=== PATIENT | male | born 2000 | race African-American/Black ===

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

== ENCOUNTER 2019-01-02 00:38 | Inpatient (IN) | payer OTHER ==
[2019-01-02] MEDS ORDERED: NA CHLORIDE 0.9% 1,000 ML ONE ×3 (01:07→02:11)
[2019-01-02] MEDS ORDERED: ONDANSETRON 4 MG/2 ML VIAL ONE (01:07)
[2019-01-02 01:25] LABS: Absolute Monocytes 0.5 K/uL (0.1-1.3); Absolute Neutrophil 7.7 K/uL (1.8-8.0); Basophils % 0.3 % (0-1.3); Eosinophils % 0.2 % (0-4.4); Hematocrit 51.5 % (39.6-49.0); Lymphocytes % 19.4 % (15.3-44.8); MPV 7.8 fL (7.6-11.3); Monocytes % 4.9 % (3.3-12.3); RBC Red Blood Cell Count 6.04 M/uL (4.33-5.43)
[2019-01-02 01:38] LABS: BUN Blood Urea Nitrogen 20 mg/dL (7-18); Glucose Level 347 mg/dL (74-106); Potassium 4.9 mmol/L (3.5-5.1); Sodium Level 134 mmol/L (136-145)
[2019-01-02 01:44] LABS: Bicarbonate 8 mmol/L (21-32)
--- NOTE | 2019-01-02 01:49 | EDPHYS ---
Physician Documentation [facility] Name: David Merritt Age: 18 yrs Sex: Male : 2000 Arrival Date: 01/02/2019 Time: 00:40 Bed 4 Private MD: ED Physician Wilman Rizvi HPI: 01/02 00:47 This 18 yrs old Black Male presents to ER via Unassigned with complaints of DKA. kb Historical: - Allergies: 00:52 NKA; lp1 - Home Meds: 00:52 Tresiba FlexTouch U-100 subcutaneous 30 unit daily for Type 1 Diabetes Mellitus lp1 [Active]; Novolin R Sub-Q [Active]; Adderall XR Oral [Active]; Wellbutrin Oral [Active]; Abilify oral oral [Active]; Depakote Oral [Active]; - PMHx: 00:52 ADD/ADHD; Anxiety; Depression; Diabetes - IDDM; kidney disease; lp1 - PSHx: 00:52 None; lp1 - Immunization history:: Adult Immunizations up to date. - Social history:: Smoking status: Patient uses tobacco products, denies chronic smoking, but will smoke occasionally. - Ebola Screening: : No symptoms or risks identified at this time. ROS: 00:48 ENT: Negative for injury, pain, and discharge, Neck: Negative for injury, pain, and kb swelling, Cardiovascular: Negative for chest pain, palpitations, and edema, Respiratory: Negative for shortness of breath, cough, wheezing, and pleuritic chest pain, Back: Negative for injury and pain, MS/Extremity: Negative for injury and deformity, Skin: Negative for injury, rash, and discoloration, Neuro: Negative for headache, weakness, numbness, tingling, and seizure. 00:48 Constitutional: Positive for fatigue, Negative for body aches, chills, fever, malaise, poor PO intake, weight loss. 00:48 Abdomen/GI: Positive for abdominal pain, nausea and vomiting, Negative for diarrhea, constipation, abdominal cramps, abdominal distension, anorexia. Exam: 00:47 Constitutional: This is a well developed, well nourished patient who is awake, alert, kb and in no acute distress. Head/Face: Normocephalic, atraumatic. ENT: Nares patent. No nasal discharge, no septal abnormalities noted. Tympanic membranes are normal and external auditory canals are clear. Oropharynx with no redness, swelling, or masses, exudates, or evidence of obstruction, uvula midline. Mucous membranes moist. Neck: Trachea midline, no thyromegaly or masses palpated, and no cervical lymphadenopathy. Supple, full range of motion without nuchal rigidity, or vertebral point tenderness. No Meningismus. Chest/axilla: Normal chest wall appearance and motion. Nontender with no deformity. No lesions are appreciated. Cardiovascular: Regular rate and rhythm with a normal S1 and S2. No gallops, murmurs, or rubs. Normal PMI, no JVD. No pulse deficits. Respiratory: Lungs have equal breath sounds bilaterally, clear to auscultation and percussion. No rales, rhonchi or wheezes noted. No increased work of breathing, no retractions or nasal flaring. Back: No spinal tenderness. No costovertebral tenderness. Full range of motion. Skin: Warm, dry with normal turgor. Normal color with no rashes, no lesions, and no evidence of cellulitis. MS/ Extremity: Pulses equal, no cyanosis. Neurovascular intact. Full, normal range of motion. Neuro: Awake and alert, GCS 15, oriented to person, place, time, and situation. Cranial nerves II-XII grossly intact. Motor strength 5/5 in all extremities. Sensory grossly intact. Cerebellar exam normal. Normal gait. 00:47 Abdomen/GI: Inspection: abdomen appears normal, Bowel sounds: normal, in all quadrants, Palpation: soft, in all quadrants, mild abdominal tenderness, in all quadrants. 01:07 ECG was reviewed by the Attending Physician. kb Vital Signs: 00:45 BP 141 / 84; Pulse 101; Resp 16; Temp 97.8(O); Pulse Ox 99% on R/A; Weight 61.23 kg; lp1 Height 5 ft. 0 in. (152.40 cm); Pain 0/10; 01:30 BP 116 / 68; Pulse 96; Resp 16; Pulse Ox 99% on R/A; rr5 02:30 BP 123 / 76; Pulse 94; Resp 15; Pulse Ox 99% on R/A; rr5 03:00 BP 104 / 59; Pulse 86; Resp 17; Temp 97.9; Pulse Ox 99% on R/A; rr5 00:45 Body Mass Index 26.37 (61.23 kg, 152.40 cm) lp1 MDM: 00:42 Patient medically screened. kb 00:47 Data reviewed: vital signs, nurses notes. Data interpreted: Pulse oximetry: on room air kb is 98 %. Interpretation: normal. 01:44 Counseling: I had a detailed discussion with the patient and/or guardian regarding: the kb historical points, exam findings, and any diagnostic results supporting the discharge/admit diagnosis, lab results, radiology results, the need for further work-up and treatment in the hospital. 01:46 Physician consultation: Madai Gilmore MD was contacted at 01:47, regarding admission, kb to the ICU, patient's condition, and will see patient in ED, shortly. 01/02 00:47 Order name: CBC with Diff kb 01/02 00:47 Order name: Basic Metabolic Panel kb 01/02 00:47 Order name: Acetone, Serum kb 01/02 00:49 Order name: CBC with Automated Diff; Complete Time: 01:33 EDMS 01/02 00:49 Order name: Basic Metabolic Panel; Complete Time: 01:44 EDMS 01/02 00:49 Order name: Acetone Level; Complete Time: 01:44 EDMS 01/02 00:54 Order name: ABG kb 01/02 02:31 Order name: Acetone Level EDMS / 02:31 Order name: Acetone Level EDMS / 02:31 Order name: Acetone Level EDMS / 02:31 Order name: Acetone Level EDMS / 02:31 Order name: Basic Metabolic Panel EDMS 01/02 02:31 Order name: Basic Metabolic Panel EDMS / 02:31 Order name: Basic Metabolic Panel EDMS / 02:31 Order name: Basic Metabolic Panel EDMS / 02:31 Order name: Calcium Level EDMS / 02:31 Order name: Calcium Level EDMS / 02:31 Order name: Calcium Level EDMS / 02:31 Order name: Calcium Level EDMS / 02:31 Order name: CBC with Automated Diff EDMS / 02:31 Order name: CBC with Automated Diff EDMS / 02:31 Order name: CBC with Automated Diff EDMS / 02:31 Order name: CBC with Automated Diff EDMS 01/02 02:31 Order name: Lipid Profile EDMS 01/02 02:31 Order name: Lipid Profile EDMS 01/02 02:31 Order name: Magnesium EDMS 01/02 02:31 Order name: Magnesium EDMS 01/02 02:31 Order name: Magnesium EDMS 01/02 02:31 Order name: Magnesium EDMS 01/02 02:31 Order name: Phosphorus EDMS 01/02 00:47 Order name: IV Start; Complete Time: 00:57 kb 01/02 00:47 Order name: Urine Dipstick-Ancillary (obtain specimen); Complete Time: 02:14 kb 01/02 00:47 Order name: Blood Glucose Level; Complete Time: 00:57 kb 01/02 00:47 Order name: EKG; Complete Time: 00:49 kb 01/02 00:47 Order name: EKG - Nurse/Tech; Complete Time: 00:56 kb 01/02 02:30 Order name: CONS Diabetic Education Consul EDMS 01/02 02:30 Order name: CONS Pharmacy Consult EDMS 01/02 02:31 Order name: Phosphorus EDMS 01/02 02:31 Order name: Phosphorus EDMS 01/02 02:31 Order name: Phosphorus EDMS 01/02 02:45 Order name: Urine Dipstick--Ancillary (enter results) ag4 01/02 02:51 Order name: Urine Dipstick-Ancillary EDMS EC:07 Rate is 97 beats/min. Rhythm is regular, Normal Sinus Rhythm. QRS [place] is Normal. UT kb interval is normal at 116 msec. QRS interval is normal at 96 msec. QT interval is normal at 364 msec. Interpreted by me. Reviewed by me. Administered Medications: 01:00 Drug: NS 0.9% 1000 ml Route: IV; Rate: 1000 ml; Site: right antecubital; ea 02:00 Follow up: IV Status: Completed infusion rr5 01:00 Drug: Zofran 4 mg Route: IVP; Site: right antecubital; ea 02:00 Follow up: Response: No adverse reaction rr5 01:21 Drug: NS 0.9% 1000 ml Route: IV; Rate: 1000 ml; Site: right forearm; rr5 02:20 Follow up: Response: No adverse reaction; IV Status: Completed infusion; IV Intake: rr5 1000ml 02:00 Drug: NS 0.9% 1000 ml Route: IV; Rate: 250 ml/hr; Site: right forearm; rr5 03:11 Follow up: Response: No adverse reaction; IV Status: Infusion continued upon admission; rr5 IV Intake: 250ml 02:05 Drug: Insulin Drip - (Insulin Regular Human 100 units, NS 0.9% 100 ml) {Co-Signature: rr5 walt (Oxana Banks RN).} Route: IV; Rate: calculated rate; Site: right forearm; 03:12 Follow up: Response: No adverse reaction; IV Status: Infusion continued upon admission; rr5 IV Intake: 6ml Point of Care Testing: Blood Glucose: 00:47 Blood Glucose: 312 mg/dL; lp1 02:58 Blood Glucose: 249 mg/dL; rr5 Ranges: Critical Glucose Levels:Adult <50 mg/dl or >400 mg/dl <40 mg/dl or >180 mg/dl Disposition: 06:00 Co-signature as Attending Physician, Wilman Rizvi MD. Disposition: 01/02/19 01:47 Hospitalization ordered by Madai Gilmore for Inpatient Admission. Preliminary diagnosis is Diabetes mellitus due to underlying condition with ketoacidosis without coma. - Bed requested for Intensive Care Unit. - Status is Inpatient Admission. rr5 - Condition is Stable. - Problem is new. - Symptoms are unchanged. UTI on Admission? No Signatures: Dispatcher [employer] EDMS Martha Mares, PRICING CLERK-C PRICING CLERK-CkAshlie Godinez RN RN lp1 Liyah Le, RN AUDRA Oxana Banks RN RN ea Starr, Gregory, MD MD Jalen Espinoza, RN AUDRA rr5 Oxana Banks RN, ea Corrections: (The following items were deleted from the chart) 02:57 01:47 Hospitalization Ordered by Madai Gilmore MD for Inpatient Admission. Preliminary cg diagnosis is Diabetes mellitus due to underlying condition with ketoacidosis without coma. Bed requested for Intensive Care Unit. Status is Inpatient Admission. Condition is Stable. Problem is new. Symptoms are unchanged. UTI on Admission? No. kb 03:41 02:57 01/02/2019 01:47 Hospitalization Ordered by Madai Gilmore MD for Inpatient rr5 Admission. Preliminary diagnosis is Diabetes mellitus due to underlying condition with ketoacidosis without coma. Bed requested for Intensive Care Unit. Status is Inpatient Admission. Condition is Stable. Problem is new. Symptoms are unchanged. UTI on Admission? No. cg
--- NOTE | 2019-01-02 01:49 | ER ---
Nurse's Notes [facility] Name: David Merritt Age: 18 yrs Sex: Male : 2000 Arrival Date: 01/02/2019 Time: 00:40 Bed 4 Private MD: Diagnosis: Diabetes mellitus due to underlying condition with ketoacidosis without coma Presentation: 01/02 00:49 Presenting complaint: Mother states: Concerned he is in DKA; Complaint of fatigue, lp1 nausea, vomiting x 4 tonight; States he has not checked is glucose for the past 3 weeks. Transition of care: patient was not received from another setting of care. Onset of symptoms was January 02, 2019. Risk Assessment: Do you want to hurt yourself or someone else? Patient reports no desire to harm self or others. Initial Sepsis Screen: Does the patient meet any 2 criteria? No. Patient's initial sepsis screen is negative. Does the patient have a suspected source of infection? No. Patient's initial sepsis screen is negative. Care prior to arrival: None. 00:49 Method Of Arrival: Ambulatory lp1 00:49 Acuity: SHARRI 3 lp1 Historical: - Allergies: 00:52 NKA; lp1 - Home Meds: 00:52 Tresiba FlexTouch U-100 subcutaneous 30 unit daily for Type 1 Diabetes Mellitus lp1 [Active]; Novolin R Sub-Q [Active]; Adderall XR Oral [Active]; Wellbutrin Oral [Active]; Abilify oral oral [Active]; Depakote Oral [Active]; - PMHx: 00:52 ADD/ADHD; Anxiety; Depression; Diabetes - IDDM; kidney disease; lp1 - PSHx: 00:52 None; lp1 - Immunization history:: Adult Immunizations up to date. - Social history:: Smoking status: Patient uses tobacco products, denies chronic smoking, but will smoke occasionally. - Ebola Screening: : No symptoms or risks identified at this time. Screenin:50 Abuse screen: Denies threats or abuse. Denies injuries from another. Nutritional lp1 screening: No deficits noted. Tuberculosis screening: No symptoms or risk factors identified. Fall Risk None identified. Assessment: 01:00 General: Appears uncomfortable, Behavior is calm, cooperative, appropriate for age. ea Neuro: Level of Consciousness is awake, alert, obeys commands, Oriented to person, place, time, situation. Cardiovascular: Patient's skin is warm and dry. Respiratory: Airway is patent Respiratory effort is even, unlabored, Respiratory pattern is regular, symmetrical. GI: Abdomen is non-distended. Derm: Skin is dry, Skin is normal, Skin temperature is warm. 01:00 GI: Reports nausea, vomiting. rr5 01:00 General: Reports fatigue for. Pain: Denies pain. : No signs and/or symptoms were rr5 reported regarding the genitourinary system. EENT: No signs and/or symptoms were reported regarding the EENT system. Musculoskeletal: Capillary refill < 3 seconds, Range of motion: intact in all extremities. 02:00 Reassessment: Patient appears in no apparent distress at this time. asleep on bed. rr5 Patient states feeling better. Patient states symptoms have improved. 02:30 Reassessment: Patient appears in no apparent distress at this time. Patient is alert, rr5 oriented x 3, equal unlabored respirations, skin warm/dry/pink. dr. thompson came and examined the patient, for admission. 03:00 Reassessment: Patient appears in no apparent distress at this time. No changes from rr5 previously documented assessment. 03:30 Reassessment: Patient appears in no apparent distress at this time. Patient is alert, rr5 oriented x 3, equal unlabored respirations, skin warm/dry/pink. for admission in ICU. vitally stable, no complaints made. Patient states feeling better. Patient states symptoms have improved. Vital Signs: 00:45 BP 141 / 84; Pulse 101; Resp 16; Temp 97.8(O); Pulse Ox 99% on R/A; Weight 61.23 kg; lp1 Height 5 ft. 0 in. (152.40 cm); Pain 0/10; 01:30 BP 116 / 68; Pulse 96; Resp 16; Pulse Ox 99% on R/A; rr5 02:30 BP 123 / 76; Pulse 94; Resp 15; Pulse Ox 99% on R/A; rr5 03:00 BP 104 / 59; Pulse 86; Resp 17; Temp 97.9; Pulse Ox 99% on R/A; rr5 00:45 Body Mass Index 26.37 (61.23 kg, 152.40 cm) lp1 ED Course: 00:40 Patient arrived in ED. am2 00:42 Martha Mares FNP-C [facility]. kb 00:42 Wilman Rizvi MD is Attending Physician. kb 00:49 Jalen Espinoza, AUDRA is Primary Nurse. rr5 00:50 Triage completed. lp1 00:50 Arm band placed on right wrist. lp1 00:50 Patient has correct armband on for positive identification. Placed in gown. Bed in low rr5 position. Call light in reach. Side rails up X2. Adult w/ patient. security monitor on. Pulse ox on. NIBP on. 00:55 Initial lab(s) drawn, by me, sent to lab. Inserted saline lock: 20 gauge in right rr5 forearm, using aseptic technique. Blood collected. 01:47 Madai Thompson MD is Hospitalizing Provider. kb 03:10 No provider procedures requiring assistance completed. Patient admitted, IV remains in rr5 place. intact. Administered Medications: 01:00 Drug: NS 0.9% 1000 ml Route: IV; Rate: 1000 ml; Site: right antecubital; ea 02:00 Follow up: IV Status: Completed infusion rr5 01:00 Drug: Zofran 4 mg Route: IVP; Site: right antecubital; ea 02:00 Follow up: Response: No adverse reaction rr5 01:21 Drug: NS 0.9% 1000 ml Route: IV; Rate: 1000 ml; Site: right forearm; rr5 02:20 Follow up: Response: No adverse reaction; IV Status: Completed infusion; IV Intake: rr5 1000ml 02:00 Drug: NS 0.9% 1000 ml Route: IV; Rate: 250 ml/hr; Site: right forearm; rr5 03:11 Follow up: Response: No adverse reaction; IV Status: Infusion continued upon admission; rr5 IV Intake: 250ml 02:05 Drug: Insulin Drip - (Insulin Regular Human 100 units, NS 0.9% 100 ml) {Co-Signature: rr5 ea (Oxana Banks RN).} Route: IV; Rate: calculated rate; Site: right forearm; 03:12 Follow up: Response: No adverse reaction; IV Status: Infusion continued upon admission; rr5 IV Intake: 6ml Point of Care Testing: Blood Glucose: 00:47 Blood Glucose: 312 mg/dL; lp1 02:58 Blood Glucose: 249 mg/dL; rr5 Ranges: Intake: 02:20 IV: 1000ml; Total: 1000ml. rr5 03:11 IV: 250ml; Total: 1250ml. rr5 03:12 IV: 6ml; Total: 1256ml. rr5 Output: 02:10 Urine: 600ml (Voided); Total: 600ml. rr5 Outcome: 01:47 Decision to Hospitalize by Provider. silvestre 03:30 Admitted to ICU accompanied by nurse, accompanied by tech, via stretcher, room 8, on rr5 monitor, with chart, Other insulin infusion. Report called to randy 03:30 Condition: stable 03:30 Instructed on the need for admit. 03:41 Patient left the ED. rr5 Signatures: Martha Mares, FOOD STYLIST-C FOOD STYLIST-Ashlie Wong, RN RN lp1 Ibeth Live am2 Oxana Banks RN RN ea Roque, Raymond, RN RN rr5 Oxana Banks RN, ea
[2019-01-02] MEDS ORDERED: NA CHLORIDE 0.9% 100 ML IV ONE (02:11)
[2019-01-02] MEDS ORDERED: INSULIN -REGULAR HUMAN 50 UNIT/0.5 ML ML ONE (02:11)
[2019-01-02] MEDS ORDERED: ONDANSETRON 4 MG/2 ML VIAL IV PRN (02:25)
[2019-01-02] MEDS ORDERED: INSULIN -REGULAR HUMAN 100 UNIT in NA CHLORIDE 0.9% 100 ML IV SCH (02:30)
[2019-01-02 02:50] LABS: Urine Blood TRACE (NEG); Urine Glucose 2+ (NEG); Urine Protein 2+ (NEG); Urine Specific Gravity >1.030 (1.005-1.030); Urine pH 5.5 (5.0-7.0)
[2019-01-02] MEDS: D5 0.45 NS 1,000 ML IV SCH ×4 (04:01→16:20)
[2019-01-02 04:18] LABS: Arterial Blood Carboxyhemoglob 1.1 % (0-1.5); Blood Gas Oxyhemoglobin 94.9 % (94-97); Blood O2 Saturation 97.1 % (92-98.5)
[2019-01-02 04:31] VITALS: O2SAT 100
[2019-01-02 05:50] LABS: Magnesium 2.3 mg/dL (1.8-2.4); Phosphorus 2.7 mg/dL (2.5-4.9)
[2019-01-02 05:54] LABS: BUN Blood Urea Nitrogen 17 mg/dL (7-18); Glucose Level 206 mg/dL (74-106); Sodium Level 140 mmol/L (136-145)
[2019-01-02 06:05] LABS: Bicarbonate 11 mmol/L (21-32)
--- NOTE | 2019-01-02 07:54 | P.HP ---
Certification for Inpatient Patient admitted to: Inpatient With expected LOS: >2 Midnights Patient will require the following post-hospital care: None Practitioner: I am a practitioner with admitting privileges, knowledge of patient current condition, hospital course, and medical plan of care. Services: Services provided to patient in accordance with Admission requirements found in Title 42 Section 412.3 of the Code of Federal Regulations Patient History Date of Service: 01/02/19 Reason for admission: DKA History of Present Illness: Pt is a 18-year-old gentleman who came into the hospital in diabetic ketoacidosis. Patient has a history of type 1 diabetes. He has had prior episodes of diabetic ketoacidosis. He forgot to take a few days of his insulin and developed abdominal pain including intractable nausea and vomiting. At that point his mom decided to bring him into the emergency room and he was found to be in DKA. He has been started are aggressive IV hydration and an insulin drip. He will need to be admitted to our hospital into the intensive care unit as we do not have protocol to do insulin drip on the floor. Will need to check his labs quite regularly-every 4 hrs-to make sure patient's blood sugars and acidosis are correcting. He has been instructed to monitor his blood sugars as well as to make certain he is taking insulin on a daily basis. He will need hospitalization it at this time will do inpatient as I am not sure how fast he will correct. However, if he does correct quicker than expected then will discuss with case management regarding changing his status. Allergies No Known Drug Allergies Allergy (Verified 01/02/19 04:53) Unknown Home Medications: ARIPiprazole [Aripiprazole] 5 mg PO BEDTIME 06/07/18 Bupropion *Xl* [Wellbutrin XL*] 300 mg PO DAILY 06/07/18 Divalproex Sodium [Divalproex Sodium ER] 2 tab PO BEDTIME 06/07/18 Insulin Aspart [Novolog Flexpen] See Protocol ACHS 06/07/18 Insulin Degludec [Tresiba Flextouch U-100] 38 units SQ DAILY #1 prasanth 06/08/18 - Past Medical/Surgical History Has patient received pneumonia vaccine in the past: No Diabetic: Yes -: Diabetes type 1 insulin-dependent -: Depression with anxiety -: THC use -: ADD/ADHD -: kidney disease Psychosocial/ Personal History: Patient lives with his mother but at times with his brother. He is single. Has no children. 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 - Social History Smoking Status: Current every day smoker Alcohol use: Yes CD- Drugs: Yes Caffeine use: Yes Place of Residence: Home Review of Systems 10-point ROS is otherwise unremarkable Physical Examination - Vital Signs Temperature: 97.4 F Blood Pressure: 114/71 Pulse: 83 Respirations: 12 Pulse Ox (%): 99 - Physical Exam General: Alert, In no apparent distress, Oriented x3 HEENT: Atraumatic, PERRLA, Mucous membr. moist/pink, EOMI, Sclerae nonicteric Neck: Supple, 2+ carotid pulse no bruit, No LAD, Without JVD or thyroid abnormality Respiratory: Clear to auscultation bilaterally, Normal air movement Cardiovascular: Regular rate/rhythm, Normal S1 S2, No murmurs Gastrointestinal: Normal bowel sounds, Soft and benign, Non-distended, No tenderness Musculoskeletal: No clubbing, No swelling, No tenderness Integumentary: No rashes Neurological: Normal gait, Normal speech, Normal strength at 5/5 x4 extr, Normal tone, Sensation intact, Cranial nerves 3-12 intact, Normal affect Lymphatics: No axilla or inguinal lymphadenopathy - Studies Laboratory Data (last 24 hrs) 01/02/19 02:30: Sodium Cancelled, Potassium Cancelled, BUN Cancelled, Creatinine Cancelled, Glucose Cancelled 01/02/19 00:55: Sodium 134 L, Potassium 4.9, BUN 20 H, Creatinine 1.39 H, Glucose 347 H 01/02/19 00:55: WBC 10.2, Hgb 17.2, Hct 51.5 H, Plt Count 356 Assessment & Plan - Problems (Diagnosis) (1) Diabetic ketoacidosis Current Visit: Yes Status: Acute (2) Diabetes mellitus type I Onset Date: 06/08/18 Current Visit: No Status: Acute (3) Nausea & vomiting Onset Date: 06/08/18 Current Visit: No Status: Acute (4) Tetrahydrocannabinol (THC) use disorder, mild, abuse Onset Date: 06/08/18 Current Visit: No Status: Acute - Plan 1. IV hydration 2. Insulin drip 3. Accu-Cheks q1h 4. Measure anion gap every 2-4 hrs 5. Resume diet(can have ice chips if no N/V) once anion gap is closed and will resume insulin pump 6. Diabetic education 7. Long-acting insulin once patient able to tolerate diet and at that time will discontinue insulin drip Discharge Plan: Home Plan to discharge in: 48 Hours - Advance Directives Does patient have a Living Will: No Does patient have a Durable POA for Healthcare: No - Code Status/Comfort Care Code Status Assessed: Yes Code Status: Full Code Critical Care: No Time Spent Managing PTS Care (In Minutes): 45
[2019-01-02] MEDS: ENOXAPARIN 40 MG/0.4 ML SQ SCH (09:00)
[2019-01-02 09:22] LABS: BUN Blood Urea Nitrogen 14 mg/dL (7-18); Glucose Level 235 mg/dL (74-106); Potassium 4.5 mmol/L (3.5-5.1); Sodium Level 137 mmol/L (136-145)
[2019-01-02 09:33] LABS: Bicarbonate 12 mmol/L (21-32)
--- NOTE | 2019-01-02 11:24 | EKG ---
Test Date: 2019-01-02 Test Time: 01:00:57 Inspector Plumbing: MIMI MEASUREMENT RESULTS: Intervals: Rate: 97 [place]: 116 QRSD: 96 QT: 364 QTc: 462 [place]: P: 80 [place]: 116 QRS: 78 T: 65 INTERPRETIVE STATEMENTS: Normal sinus rhythm Biatrial enlargement Abnormal ECG Compared to ECG 07/28/2017 10:35:56 Sinus tachycardia no longer present Electronically Signed On 01-02-19 11:23:36 CDT by Bobby Dover
[2019-01-02 13:53] LABS: BUN Blood Urea Nitrogen 11 mg/dL (7-18); Bicarbonate 16 mmol/L (21-32); Glucose Level 228 mg/dL (74-106); Potassium 3.9 mmol/L (3.5-5.1); Sodium Level 137 mmol/L (136-145)
[2019-01-02 20:27] LABS: BUN Blood Urea Nitrogen 11 mg/dL (7-18); Bicarbonate 21 mmol/L (21-32); Glucose Level 228 mg/dL (74-106); Potassium 4.2 mmol/L (3.5-5.1); Sodium Level 137 mmol/L (136-145)
[2019-01-02] MEDS: ARIPiprazole 5 MG TAB PO SCH (21:12)
[2019-01-02] MEDS: DIVALPROEX ER 250 MG TAB PO SCH (21:12)
[2019-01-03 00:28] LABS: BUN Blood Urea Nitrogen 12 mg/dL (7-18); Bicarbonate 19 mmol/L (21-32); Glucose Level 234 mg/dL (74-106); Potassium 3.5 mmol/L (3.5-5.1); Sodium Level 139 mmol/L (136-145)
[2019-01-03] MEDS: D5 0.45 NS 1,000 ML IV SCH ×2 (03:21→05:40)
[2019-01-03 05:29] LABS: Absolute Lymphocytes (CBC) 2.3 K/uL (0.7-4.9); Absolute Monocytes 0.5 K/uL (0.1-1.3); Absolute Neutrophil 1.8 K/uL (1.8-8.0); Basophils % 0.6 % (0-1.3); Eosinophils % 3.8 % (0-4.4); Lymphocytes % 47.4 % (15.3-44.8); MPV 7.2 fL (7.6-11.3); Monocytes % 10.7 % (3.3-12.3); RBC Red Blood Cell Count 4.87 M/uL (4.33-5.43)
[2019-01-03 05:46] LABS: BUN Blood Urea Nitrogen 12 mg/dL (7-18); Bicarbonate 21 mmol/L (21-32); Glucose Level 243 mg/dL (74-106); Potassium 3.6 mmol/L (3.5-5.1); Sodium Level 137 mmol/L (136-145)
[2019-01-03 05:47] LABS: Magnesium 1.8 mg/dL (1.8-2.4); Phosphorus 1.5 mg/dL (2.5-4.9)
[2019-01-03] MEDS ORDERED: POTASSIUM PHOS 30 MM in NA CHLORIDE 0.9% 500 ML IV ONE (06:18)
[2019-01-03 06:29] VITALS: BMI 18.7
[2019-01-03] MEDS ORDERED: NA CHLORIDE 0.9% 1,000 ML ONE (06:35)
[2019-01-03] MEDS ORDERED: NA CHLORIDE 0.9% 1,000 ML IV SCH (07:00)
[2019-01-03] MEDS: BUPROPION HCL XL 150 MG TAB PO SCH (09:05)
[2019-01-03] MEDS: INSULIN GLARGINE 100 UNITS/ML SQ SCH (09:12)
[2019-01-03] MEDS: ENOXAPARIN 40 MG/0.4 ML SQ SCH (09:12)
[2019-01-03] MEDS ORDERED: POTASSIUM 25 MEQ EFFERV TAB PO ONE (10:25)
[2019-01-03] MEDS: POTASS/SODIUM PHOSPHATE 1 PKT POWD.PACK PO SCH ×3 (11:24→13:37)
[2019-01-03] MEDS ORDERED: GLUCAGON 1 MG/VIAL IM PRN (11:45)
[2019-01-03] MEDS ORDERED: D50W 25 GM/50 ML SYRINGE IV PRN (11:45)
--- NOTE | 2019-01-03 11:48 | P.PN ---
Subjective Date of Service: 01/03/19 Chief Complaint: DKA Subjective: No C/O voiced, Tolerating diet, Improving, Doing well, Other ( Currently on Insulin ggt gap closed x 1, with small ketones. Denies N/V and SOB) Review of Systems 10-point ROS is otherwise unremarkable Physical Examination - Vital Signs Temperature: 98.6 F Blood Pressure: 98/68 Pulse: 74 Respirations: 12 Pulse Ox (%): 99 - Physical Exam General: Alert, In no apparent distress HEENT: Atraumatic, PERRLA, EOMI Neck: Supple, JVD not distended Respiratory: Clear to auscultation bilaterally, Normal air movement Cardiovascular: Regular rate/rhythm, Normal S1 S2 Gastrointestinal: Normal bowel sounds, No tenderness Musculoskeletal: No tenderness Integumentary: No rashes Neurological: Normal speech, Normal tone, Normal affect Lymphatics: No axilla or inguinal lymphadenopathy - Studies Medications List Reviewed: Yes Assessment And Plan - Current Problems (Diagnosis) (1) Diabetic ketoacidosis Current Visit: Yes Status: Acute Plan: Pt with DKA with initially anion gap > 20 and large Ketones -Pt is currently on Insulin ggt and IV fluids -Anion gap closed x1, Pt able to now tolerate diet. -DC fluids now and Give Long acting insulin. Will switch off insulin ggt in 2 hrs. -ISS - Mod and Accu checks now -Transfer to the floor Qualifiers: Diabetes mellitus type: type 1 Diabetes mellitus complication detail: without coma Qualified Code(s): E10.10 - Type 1 diabetes mellitus with ketoacidosis without coma (2) Diabetes mellitus type I Onset Date: 06/08/18 Current Visit: No Status: Chronic Qualifiers: Diabetes mellitus complication status: with ketoacidosis Diabetes mellitus complication detail: without coma Qualified Code(s): E10.10 - Type 1 diabetes mellitus with ketoacidosis without coma (3) Tetrahydrocannabinol (THC) use disorder, mild, abuse Onset Date: 06/08/18 Current Visit: No Status: Chronic (4) Tobacco abuse Onset Date: 06/08/18 Current Visit: No Status: Chronic - Plan Pending Clinical Improvement. Transfer to the floor. Discharge Plan: Home Plan to discharge in: 48 Hours - Code Status/Comfort Care Code Status Assessed: Yes Critical Care: Yes
[2019-01-03] MEDS: INSULIN -REGULAR HUMAN 50 UNIT/0.5 ML ML SQ SCH ×3 (12:05→21:00)
[2019-01-03 12:25] LABS: BUN Blood Urea Nitrogen 12 mg/dL (7-18); Bicarbonate 24 mmol/L (21-32); Glucose Level 352 mg/dL (74-106); Potassium 4.7 mmol/L (3.5-5.1); Sodium Level 136 mmol/L (136-145)
[2019-01-03] MEDS ORDERED: NA CHLORIDE 0.9% 500 ML IV ONE (12:49)
[2019-01-03] MEDS: ARIPiprazole 5 MG TAB PO SCH (21:38)
[2019-01-03] MEDS: DIVALPROEX ER 250 MG TAB PO SCH (21:38)
[2019-01-04] MEDS ORDERED: PANTOPRAZOLE 40MG TABLET PO ONE (00:12)
[2019-01-04] MEDS ORDERED: MAGNES/ALUMIN/SIMET 30ML UCUP PO ONE (00:16)
[2019-01-04 06:04] LABS: Absolute Lymphocytes (CBC) 2.9 K/uL (0.7-4.9); Absolute Monocytes 0.5 K/uL (0.1-1.3); Basophils % 0.6 % (0-1.3); Eosinophils % 4.9 % (0-4.4); Hematocrit 39.2 % (39.6-49.0); Lymphocytes % 50.8 % (15.3-44.8); MPV 7.1 fL (7.6-11.3); Monocytes % 8.7 % (3.3-12.3); RBC Red Blood Cell Count 4.83 M/uL (4.33-5.43)
[2019-01-04 06:23] LABS: BUN Blood Urea Nitrogen 13 mg/dL (7-18); Bicarbonate 30 mmol/L (21-32); Glucose Level 160 mg/dL (74-106); Magnesium 2.1 mg/dL (1.8-2.4); Phosphorus 3.1 mg/dL (2.5-4.9); Sodium Level 142 mmol/L (136-145)
[2019-01-04 06:29] LABS: Potassium 2.8 mmol/L (3.5-5.1)
[2019-01-04] MEDS: INSULIN -REGULAR HUMAN 50 UNIT/0.5 ML ML SQ SCH ×2 (07:30→11:14)
[2019-01-04] MEDS: KCL 20 MEQ/100 mL IVPB 20 MEQ/100 ML BAG IV SCH ×2 (07:31→10:21)
[2019-01-04] MEDS ORDERED: NA CHLORIDE 0.9% 1,000 ML ONE (07:40)
[2019-01-04] MEDS: ENOXAPARIN 40 MG/0.4 ML SQ SCH (07:45)
[2019-01-04] MEDS: INSULIN GLARGINE 100 UNITS/ML SQ SCH (07:50)
[2019-01-04] MEDS: BUPROPION HCL XL 150 MG TAB PO SCH (07:52)
[2019-01-04 08:18] VITALS: BP 116/62; TEMP 97.9
[2019-01-04] MEDS ORDERED: POTASSIUM CL SA 10 MEQ TAB PO ONE (10:50)
--- NOTE | 2019-01-04 11:32 | P.DS ---
Admission Date: 01/02/19 Discharge Date: 01/04/19 Disposition: ROUTINE DISCHARGE Discharge Condition: GOOD Reason for Admission: DKA Consultations: Not - Problems (1) Diabetic ketoacidosis Current Visit: Yes Status: Acute Qualifiers: Diabetes mellitus type: type 1 Diabetes mellitus complication detail: without coma Qualified Code(s): E10.10 - Type 1 diabetes mellitus with ketoacidosis without coma (2) Diabetes mellitus type I Onset Date: 06/08/18 Current Visit: No Status: Chronic Qualifiers: Diabetes mellitus complication status: with ketoacidosis Diabetes mellitus complication detail: without coma Qualified Code(s): E10.10 - Type 1 diabetes mellitus with ketoacidosis without coma (3) Tetrahydrocannabinol (THC) use disorder, mild, abuse Onset Date: 06/08/18 Current Visit: No Status: Chronic (4) Tobacco abuse Onset Date: 06/08/18 Current Visit: No Status: Chronic Brief History of Present Illness: Pt is a 18-year-old gentleman who came into the hospital in diabetic ketoacidosis. Patient has a history of type 1 diabetes. He has had prior episodes of diabetic ketoacidosis. He forgot to take a few days of his insulin and developed abdominal pain including intractable nausea and vomiting. At that point his mom decided to bring him into the emergency room and he was found to be in DKA. He has been started are aggressive IV hydration and an insulin drip. He will need to be admitted to our hospital into the intensive care unit as we do not have protocol to do insulin drip on the floor. Will need to check his labs quite regularly-every 4 hrs-to make sure patient's blood sugars and acidosis are correcting. He has been instructed to monitor his blood sugars as well as to make certain he is taking insulin on a daily basis. Hospital Course: Overall during stay patient remained stable Patient is initially admitted to the hospital for diabetic ketoacidosis. Was started on insulin drip here in the hospital along with IV fluids. Patient's initial anion gap was over 20 and had large ketones. Patient's DKA was most likely secondary to noncompliance with medication. Patient did markedly well and ICU an anion gap closed times to keep Mr. in the urine. At that time patient was switched over to long-acting insulin and insulin drip was stops 1 hr post administration. Patient had his diet advanced with she tolerated well at that time patient was transferred to the floor. Patient was then monitor for the next 24 hr and did well overall. At that time patient was then discharged home under stable condition was asked to continue his home dose of insulin and to follow up with his primary care provider along with refresh technician. Patient demonstrate understanding and thus was discharged home under stable condition Vital Signs/Physical Exam: Temp Pulse Resp BP Pulse Ox 97.9 F 70 18 116/62 99 01/04/19 08:00 01/04/19 08:00 01/04/19 08:00 01/04/19 08:00 01/04/19 08:00 General: Alert, In no apparent distress HEENT: Atraumatic, PERRLA, EOMI Neck: Supple, JVD not distended Respiratory: Clear to auscultation bilaterally, Normal air movement Cardiovascular: Regular rate/rhythm, Normal S1 S2 Gastrointestinal: Normal bowel sounds, No tenderness Musculoskeletal: No tenderness Integumentary: No rashes Neurological: Normal speech, Normal tone, Normal affect Lymphatics: No axilla or inguinal lymphadenopathy Laboratory Data at Discharge: WBC 5.7 K/uL (4.3-10.9) D 01/04/19 05:19 Hgb 13.5 g/dL (13.6-17.9) L 01/04/19 05:19 Hct 39.2 % (39.6-49.0) L 01/04/19 05:19 Plt Count 264 K/uL (152-406) 01/04/19 05:19 Sodium 142 mmol/L (136-145) 01/04/19 05:19 Potassium 2.8 mmol/L (3.5-5.1) L* 01/04/19 08:07 BUN 13 mg/dL (7-18) 01/04/19 05:19 Creatinine 0.82 mg/dL (0.55-1.3) 01/04/19 05:19 Glucose 160 mg/dL (74-106) H 01/04/19 05:19 Phosphorus 3.1 mg/dL (2.5-4.9) D 01/04/19 05:19 Magnesium 2.1 mg/dL (1.8-2.4) 01/04/19 05:19 Triglycerides 64 mg/dL (<150) 01/03/19 05:11 Cholesterol 126 mg/dL (<200) 01/03/19 05:11 HDL Cholesterol 41 mg/dL (40-60) 01/03/19 05:11 Cholesterol/HDL Ratio 3.07 01/03/19 05:11 Home Medications: ARIPiprazole [Aripiprazole] 10 mg PO BEDTIME 06/07/18 Bupropion *Xl* [Wellbutrin XL*] 300 mg PO DAILY 06/07/18 Divalproex Sodium [Divalproex Sodium ER] 500 mg PO BEDTIME 06/07/18 Insulin Aspart [Novolog Flexpen] See Protocol SQ ACHS 06/07/18 Insulin Degludec [Tresiba Flextouch U-100] 45 units SQ DAILY MDD 45 01/02/19 Diet: Regular Activity: Ad jesus manuel Followup: Gabe Mendoza MD [Primary Care Provider] -
== END 2019-01-04 12:05 | disposition home or self-care (01) | DRG 639 ==
LOC: ER 00:38 → ERHOLD 02:35 → 3RD-ICU 03:14 → 2ND 01-03 16:03
PROVIDERS: ADMIT Hospitalist; ATTEND Hospitalist
DX: E10.10 Type 1 diabetes mellitus with ketoacidosis without coma (principal); F12.10 Cannabis abuse, uncomplicated; F17.210 Nicotine dependence, cigarettes, uncomplicated; Z91.14 Patient's other noncompliance with medication regimen
CPT/HCPCS: 36415; 80048; 80061; 81003; 82010; 82805; 82962; 83735; 84100; 84132; 85025; 93005; 96361; 96365; 96375; 99285; J1650; J2405; J7030

== ENCOUNTER 2019-11-24 14:15 | Inpatient (IN) | payer OTHER, SELFPAY ==
[2019-11-24] MEDS ORDERED: ONDANSETRON 4 MG/2 ML VIAL ONE (14:47)
[2019-11-24] MEDS ORDERED: NA CHLORIDE 0.9% 1,000 ML ONE ×3 (14:47→16:47)
[2019-11-24 14:57] LABS: Absolute Lymphocytes (CBC) 1.9 K/uL (0.7-4.9); Basophils % 0.3 % (0-1.3); Hematocrit 51.7 % (39.6-49.0); Lymphocytes % 11.1 % (15.3-44.8); RBC Red Blood Cell Count 6.28 M/uL (4.33-5.43)
[2019-11-24 15:39] LABS: ALT/SGPT 27 U/L (12-78); Albumin 4.7 g/dL (3.4-5.0); Alkaline Phosphatase 136 U/L (45-117); BUN Blood Urea Nitrogen 19 mg/dL (7-18); Bilirubin Direct < 0.1 mg/dL (0-0.2); Bilirubin Total 0.4 mg/dL (0.2-1.0); Glucose Level 329 mg/dL (74-106); Lipase 47 U/L (73-393); Protein, Total 9.6 g/dL (6.4-8.2); Sodium Level 135 mmol/L (136-145)
[2019-11-24 15:41] LABS: AST/SGOT 15 U/L (15-37); Bicarbonate 9 mmol/L (21-32); Potassium 4.7 mmol/L (3.5-5.1)
--- NOTE | 2019-11-24 15:53 | ER ---
Nurse's Notes [facility] Name: David Merritt Age: 19 yrs Sex: Male : 2000 Arrival Date: 11/24/2019 Time: 14:16 Bed 4 Private MD: Gabe Mendoza W Diagnosis: Diabetes mellitus due to underlying condition with ketoacidosis without coma Presentation: 11/23 14:26 Chief complaint: Patient states: Was in half-way, unable to get insulin as he needed. Out ll1 of insulin at home. Started feeling bad 3 days ago. + N/V. No fever. Coronavirus screen: Proceed with normal triage. Patient denies a cough. Patient denies shortness of breath or difficulty breathing. Patient denies measured and/or subjective temperature greater than 100.4F prior to today's visit. Patient denies travel on a cruise ship or to a country the [facility] currently lists as an affected area. Patient denies contact with known and/or suspected case of COVID-19. Ebola Screen: Patient denies travel to an Ebola-affected area in the 21 days before illness onset. Initial Sepsis Screen: Does the patient meet any 2 criteria? HR > 90 bpm. No. Patient's initial sepsis screen is negative. Does the patient have a suspected source of infection? No. Patient's initial sepsis screen is negative. Risk Assessment: Do you want to hurt yourself or someone else? Patient reports no desire to harm self or others. Onset of symptoms was November 21, 2019. 14:26 Method Of Arrival: Ambulatory ll1 14:26 Acuity: SHARRI 3 ll1 Historical: - Allergies: 14:21 NKA; ph - PMHx: 14:21 ADD/ADHD; Anxiety; Depression; Diabetes - IDDM; kidney disease; ph - PSHx: 14:21 None; ph - Immunization history:: Adult Immunizations unknown. - Social history:: Patient/guardian denies using alcohol, street drugs, Smoking status: Patient reports the use of cigarette tobacco products, smokes one-half pack cigarettes per day. Screenin:21 Abuse screen: Denies threats or abuse. Denies injuries from another. Nutritional ph screening: No deficits noted. Tuberculosis screening: No symptoms or risk factors identified. Fall Risk None identified. Assessment: 14:50 General: Appears in no apparent distress. uncomfortable, slender, well groomed, ph Behavior is calm, cooperative, appropriate for age, Reports fatigue for Denies fever. Pain: Complains of pain in abdomen Quality of pain is described as "uncomfortable in entire abdomen". Neuro: Level of Consciousness is awake, alert, obeys commands, Oriented to person, place, time, situation. Cardiovascular: Capillary refill < 3 seconds in bilateral fingers Patient's skin is warm and dry. Respiratory: Airway is patent Respiratory effort is even, unlabored, Respiratory pattern is regular, symmetrical. GI: Reports lower abdominal pain, upper abdominal pain, nausea, Patient currently denies diarrhea, vomiting. Derm: Skin is intact, is healthy with good turgor, Skin is pink, warm \\T\\ dry. Musculoskeletal: Circulation, motion, and sensation intact. Range of motion: intact in all extremities. 17:04 Reassessment: Patient appears in no apparent distress at this time. Patient and/or ph family updated on plan of care and expected duration. Pain level reassessed. Patient is alert, oriented x 3, equal unlabored respirations, skin warm/dry/pink. Report called to Chad [facility] in ICU, awaiting RT for ABG draw before taking pt to ICU. 17:21 Reassessment: Spoke w/ RT, ABG cancelled by Dr Martin. ph Vital Signs: 14:26 BP 129 / 85; Pulse 115; Resp 20; Temp 98.9; Pulse Ox 98% ; Pain 5/10; ll1 15:30 BP 125 / 74; Pulse 105; Resp 22; Pulse Ox 100% on R/A; ph 16:53 BP 109 / 55; Pulse 108; Resp 24; Temp 98.4; Pulse Ox 100% ; Weight 63.5 kg (R); ph Vitals: 16:53 Cardiac Rhythm Assessment Sinus tach. ph Magdiel Coma Score: 15:30 Eye Response: spontaneous(4). Verbal Response: oriented(5). Motor Response: obeys ph commands(6). Total: 15. ED Course: 14:16 Patient arrived in ED. am2 14:16 Gabe Mendoza MD is Private Physician. am2 14:20 Jessica Cope, AUDRA is Primary Nurse. ph 14:20 [facility]menta [facility]. jr8 14:20 Alfonso Pederson MD is Attending Physician. jr8 14:21 Patient has correct armband on for positive identification. Bed in low position. Call ph light in reach. Side rails up X 1. Pulse ox on. NIBP on. Door closed. Noise minimized. Warm blanket given. 14:28 Triage completed. ll1 14:28 Arm band placed on Patient placed in an exam room, on a stretcher. ll1 14:47 Initial lab(s) drawn, by me, sent to lab. Inserted saline lock: 20 gauge in right ph forearm, using aseptic technique. Blood collected. 15:52 Kevin Martin MD is Hospitalizing Provider. jr8 16:54 No provider procedures requiring assistance completed. Patient admitted, IV remains in ph place. 16:55 First set of blood cultures drawn by ED staff. Inserted saline lock: 22 gauge in right ph antecubital area, using aseptic technique. Administered Medications: 14:49 Drug: NS 0.9% 1000 ml Route: IV; Rate: 1000 ml; Site: left forearm; ph 17:11 Follow up: Response: No adverse reaction; IV Status: Completed infusion; IV Intake: ph 1000ml 14:49 Drug: Zofran (Ondansetron) 4 mg Route: IVP; Site: right forearm; ph 17:09 Follow up: Response: No adverse reaction ph 16:00 Drug: NS 0.9% 1000 ml Route: IV; Rate: 1000 ml; Site: left wrist; em 17:09 Follow up: Response: No adverse reaction; IV Status: Completed infusion; IV Intake: ph 1000ml 16:45 Drug: Insulin Drip - (Insulin Regular Human 100 units, NS 0.9% 100 ml) {Co-Signature: ph em (Adarsh Taylor RN).} {Note: 5 units/hr.} Route: IV; Rate: calculated rate; Site: left forearm; 17:10 Follow up: Response: No adverse reaction; IV Status: Infusion continued upon admission ph Intake: 17:09 IV: 1000ml; Total: 1000ml. ph 17:11 IV: 1000ml; Total: 2000ml. ph Outcome: 15:53 Decision to Hospitalize by Provider. jr8 17:05 Admitted to ICU accompanied by nurse, accompanied by tech, via stretcher, room 2, on ph monitor, with chart, Report called to Chad [facility] 17:05 Condition: stable 17:05 Instructed on the need for admit. 18:05 Patient left the ED. ph Signatures: Adarsh Taylor RN RN em Jitendra Armenta PA PA jr8 Jessica Cope RN RN Ibeth Live Lynsay, RN RN ll1 Adarsh Taylor RN
--- NOTE | 2019-11-24 15:54 | EDPHYS ---
Physician Documentation [facility] Name: David Merritt Age: 19 yrs Sex: Male : 2000 Arrival Date: 11/24/2019 Time: 14:16 Bed 4 Private MD: Gabe Mendoza W ED Physician Alfonso Pederson HPI: 11/23 15:42 This 19 yrs old Black Male presents to ER via Ambulatory with complaints of dka. jr8 15:42 The patient or guardian reports generalized fatigue, hyperglycemia, polyuria, nausea, jr8 shortness of breath. Onset: The symptoms/episode began/occurred acutely, today. Associated signs and symptoms: Pertinent positives: None. Current symptoms: In the emergency department the patient's symptoms are unchanged from the initial presentation. The patient has experienced similar episodes in the past, a few times. The patient has not recently seen a physician. Stated that he ran out of his insulin about 3 days ago. Now not feeling well . Historical: - Allergies: 14:21 NKA; ph - PMHx: 14:21 ADD/ADHD; Anxiety; Depression; Diabetes - IDDM; kidney disease; ph - PSHx: 14:21 None; ph - Immunization history:: Adult Immunizations unknown. - Social history:: Patient/guardian denies using alcohol, street drugs, Smoking status: Patient reports the use of cigarette tobacco products, smokes one-half pack cigarettes per day. ROS: 15:42 Eyes: Negative for injury, pain, redness, and discharge, ENT: Negative for injury, jr8 pain, and discharge, Neck: Negative for injury, pain, and swelling, Cardiovascular: Negative for chest pain, palpitations, and edema, Back: Negative for injury and pain, MS/Extremity: Negative for injury and deformity, Skin: Negative for injury, rash, and discoloration, Neuro: Negative for headache, weakness, numbness, tingling, and seizure. 15:42 Respiratory: Positive for shortness of breath. 15:42 Abdomen/GI: Positive for nausea and vomiting, Negative for abdominal pain, diarrhea, constipation, abdominal cramps, abdominal distension. Exam: 15:51 Eyes: Pupils equal round and reactive to light, extra-ocular motions intact. Lids and jr8 lashes normal. Conjunctiva and sclera are non-icteric and not injected. Cornea within normal limits. Periorbital areas with no swelling, redness, or edema. ENT: Nares patent. No nasal discharge, no septal abnormalities noted. Tympanic membranes are normal and external auditory canals are clear. Oropharynx with no redness, swelling, or masses, exudates, or evidence of obstruction, uvula midline. Mucous membranes moist. Neck: Trachea midline, no thyromegaly or masses palpated, and no cervical lymphadenopathy. Supple, full range of motion without nuchal rigidity, or vertebral point tenderness. No Meningismus. Respiratory: Lungs have equal breath sounds bilaterally, clear to auscultation and percussion. No rales, rhonchi or wheezes noted. No increased work of breathing, no retractions or nasal flaring. Abdomen/GI: Soft, non-tender, with normal bowel sounds. No distension or tympany. No guarding or rebound. No evidence of tenderness throughout. Back: No spinal tenderness. No costovertebral tenderness. Full range of motion. Skin: Warm, dry with normal turgor. Normal color with no rashes, no lesions, and no evidence of cellulitis. MS/ Extremity: Pulses equal, no cyanosis. Neurovascular intact. Full, normal range of motion. Neuro: Awake and alert, GCS 15, oriented to person, place, time, and situation. Cranial nerves II-XII grossly intact. Motor strength 5/5 in all extremities. Sensory grossly intact. Cerebellar exam normal. Normal gait. 15:51 Cardiovascular: Rate: tachycardic, Rhythm: regular, Pulses: Pulses are 2+ in right radial artery and left radial artery. Heart sounds: normal, normal S1and S2, no S3 or S4, no murmur, no rub, no gallop, Edema: is not appreciated, JVD: is not appreciated. Vital Signs: 14:26 BP 129 / 85; Pulse 115; Resp 20; Temp 98.9; Pulse Ox 98% ; Pain 5/10; ll1 15:30 BP 125 / 74; Pulse 105; Resp 22; Pulse Ox 100% on R/A; ph 16:53 BP 109 / 55; Pulse 108; Resp 24; Temp 98.4; Pulse Ox 100% ; Weight 63.5 kg (R); ph Granville Coma Score: 15:30 Eye Response: spontaneous(4). Verbal Response: oriented(5). Motor Response: obeys ph commands(6). Total: 15. MDM: 14:20 Patient medically screened. [facility] 15:51 Data reviewed: vital signs, nurses notes, lab test result(s), and as a result, I will jr admit patient. Data interpreted: Pulse oximetry: on room air is 98 %. Interpretation: normal. Counseling: I had a detailed discussion with the patient and/or guardian regarding: the historical points, exam findings, and any diagnostic results supporting the discharge/admit diagnosis, lab results, the need for further work-up and treatment in the hospital. Physician consultation: Kevin Martin MD was called at 15:52, was contacted at 15:52, regarding admission, to the ICU, patient's condition, and will see patient in ED. 11/23 14:20 Order name: Basic Metabolic Panel; Complete Time: 15:51 [facility] 11/23 14:20 Order name: CBC with Diff; Complete Time: 16:02 [facility] 11/23 14:20 Order name: Creatinine for Radiology; Complete Time: 15:25 [facility] 11/23 14:20 Order name: Hepatic Function; Complete Time: 15:51 [facility] 11/23 14:20 Order name: Lipase; Complete Time: 15:51 [facility] 11/23 14:20 Order name: Ketone, Serum; Complete Time: 15:51 [facility] 11/23 14:50 Order name: Glucose, Ancillary Testing; Complete Time: 15:13 [facility] 11/23 15:57 Order name: CBC Smear Scan; Complete Time: 16:02 [facility] 11/23 16:01 Order name: Basic Metabolic Panel [facility] 11/23 16:01 Order name: Basic Metabolic Panel [facility] 11/23 16:01 Order name: Basic Metabolic Panel [facility] 11/23 16:01 Order name: Basic Metabolic Panel [facility] 11/23 16:04 Order name: Urinalysis [facility] 11/23 14:20 Order name: IV Saline Lock; Complete Time: 14:49 [facility] 11/23 16:01 Order name: CONS Diabetic Education Consul [facility] 11/23 16:01 Order name: CONS Pharmacy Consult [facility] 11/23 16:01 Order name: Clear Liquid [facility] 11/23 16:01 Order name: NPO [facility] 11/23 16:04 Order name: Blood Culture [facility] 11/23 16:05 Order name: Chest Single View [facility] 11/23 16:05 Order name: Chest Single View [facility] 11/23 16:49 Order name: Glucose, Ancillary Testing [facility] 11/23 17:00 Order name: Urine Dipstick--Ancillary (enter results) 11/23 17:23 Order name: Urine Dipstick-Ancillary [facility] 11/23 17:55 Order name: Glucose, Ancillary Testing [facility] 11/23 14:20 Order name: Labs collected and sent; Complete Time: 14:49 jr8 11/23 14:20 Order name: Urine Dipstick-Ancillary (obtain specimen); Complete Time: 16:53 jr8 11/23 14:20 Order name: Glucose Level; Complete Time: 14:49 jr8 Administered Medications: 14:49 Drug: NS 0.9% 1000 ml Route: IV; Rate: 1000 ml; Site: left forearm; ph 17:11 Follow up: Response: No adverse reaction; IV Status: Completed infusion; IV Intake: ph 1000ml 14:49 Drug: Zofran (Ondansetron) 4 mg Route: IVP; Site: right forearm; ph 17:09 Follow up: Response: No adverse reaction ph 16:00 Drug: NS 0.9% 1000 ml Route: IV; Rate: 1000 ml; Site: left wrist; em 17:09 Follow up: Response: No adverse reaction; IV Status: Completed infusion; IV Intake: ph 1000ml 16:45 Drug: Insulin Drip - (Insulin Regular Human 100 units, NS 0.9% 100 ml) {Co-Signature: em (Adarsh Taylor RN).} {Note: 5 units/hr.} Route: IV; Rate: calculated rate; Site: left forearm; 17:10 Follow up: Response: No adverse reaction; IV Status: Infusion continued upon admission ph Disposition: 11/24 10:02 Co-signature as Attending Physician, Alfonso Pederson MD I agree with the assessment and [place] plan of care. Disposition: 11/24/19 15:53 Hospitalization ordered by Kevin Martin for Inpatient Admission. Preliminary diagnosis is Diabetes mellitus due to underlying condition with ketoacidosis without coma. - Bed requested for Intensive Care Unit. - Status is Inpatient Admission. ph - Condition is Stable. - Problem is new. - Symptoms are unchanged. Signatures: Dispatcher [employer] EDKS Nat Ware Corey, MD MD cha Munoz, Edgar, RN RN em Jitendra Armenta PA PA jr8 Jessica Cope RN RN Jackie Monsivais RN RN ll1 Adarsh Taylor RN em Corrections: (The following items were deleted from the chart) 11/23 15:53 15:42 Arterial Blood Gas+[id number].LAB.BRZ ordered. EDKS EDKS 16:34 15:53 Hospitalization Ordered by Kevin Martin MD for Inpatient Admission. bd Preliminary diagnosis is Diabetes mellitus due to underlying condition with ketoacidosis without coma. Bed requested for Intensive Care Unit. Status is Inpatient Admission. Condition is Stable. Problem is new. Symptoms are unchanged. jr8 18:05 16:34 11/24/2019 15:53 Hospitalization Ordered by Kevin Martin MD for Inpatient ph Admission. Preliminary diagnosis is Diabetes mellitus due to underlying condition with ketoacidosis without coma. Bed requested for Intensive Care Unit. Status is Inpatient Admission. Condition is Stable. Problem is new. Symptoms are unchanged. bd
[2019-11-24] MEDS ORDERED: ONDANSETRON 4 MG/2 ML VIAL IV PRN (15:55)
[2019-11-24] MEDS ORDERED: NA CHLORIDE 0.9% 1,000 ML IV ONE (15:55)
[2019-11-24 15:57] LABS: Blood Morphology Comment NOT SEEN (NOT SEEN); Platelet Estimate ADEQ; Urine White Blood Cell Casts OK
[2019-11-24] MEDS: D5 0.45 NS 1,000 ML IV SCH ×2 (16:00→19:27)
[2019-11-24] MEDS ORDERED: INSULIN -REGULAR HUMAN 100 UNIT in NA CHLORIDE 0.9% 100 ML IV SCH (16:00)
--- NOTE | 2019-11-24 16:06 | P.HP ---
Certification for Inpatient With expected LOS: <2 Midnights Patient will require the following post-hospital care: None Practitioner: I am a practitioner with admitting privileges, knowledge of patient current condition, hospital course, and medical plan of care. Services: Services provided to patient in accordance with Admission requirements found in Title 42 Section 412.3 of the Code of Federal Regulations Patient History Date of Service: 11/24/19 Reason for admission: DKA History of Present Illness: Patient is 19 years of age admitted with a 2 day history of nausea vomiting apparently ran out of his insulin admitted with de DKA denies any fever chills or urinary problems for Cough Allergies No Known Drug Allergies Allergy (Verified 01/02/19 04:53) Unknown Home Medications: ARIPiprazole [Aripiprazole] 10 mg PO BEDTIME 06/07/18 Bupropion *Xl* [Wellbutrin XL*] 300 mg PO DAILY 06/07/18 Divalproex Sodium [Divalproex Sodium ER] 500 mg PO BEDTIME 06/07/18 Insulin Aspart [Novolog Flexpen] See Protocol SQ ACHS 06/07/18 Insulin Degludec [Tresiba Flextouch U-100] 45 units SQ DAILY MDD 45 01/02/19 - Past Medical/Surgical History Diabetic: Yes -: Diabetes type 1 insulin-dependent -: Depression with anxiety -: THC use -: ADD/ADHD -: kidney disease Psychosocial/ Personal History: Patient lives with his mother but at times with his brother. He is single. Has no children. 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 - Social History Alcohol use: Yes CD- Drugs: Yes Caffeine use: Yes Review of Systems 10-point ROS is otherwise unremarkable Physical Examination - Vital Signs Temperature: 98.9 F Blood Pressure: 129/85 Pulse: 115 Respirations: 20 Pulse Ox (%): 98 - Physical Exam General: Alert, In no apparent distress, Oriented x3, Confused (BP 129 / 85; Pulse 115; Resp 20; Temp 98.9; Pulse Ox 98% ; Pain 5/10; ll1 ) HEENT: Atraumatic Neck: Supple Respiratory: Clear to auscultation bilaterally Cardiovascular: No edema, Regular rate/rhythm, Normal S1 S2 Gastrointestinal: Normal bowel sounds, Soft and benign Musculoskeletal: No clubbing, No swelling Integumentary: No rashes, No breakdown Neurological: Normal gait, Normal speech - Studies Laboratory Data (last 24 hrs) 11/24/19 14:35: Creatinine 1.29 11/24/19 14:35: WBC 17.2 H, Hgb 16.6, Hct 51.7 H, Plt Count 388 11/24/19 14:35: Sodium 135 L, Potassium 4.7, BUN 19 H, Creatinine 1.32 H, Glucose 329 H, Total Bilirubin 0.4, AST 15, ALT 27, Alkaline Phosphatase 136 H, Lipase 47 L Assessment and Plan - Problems (Diagnosis) (1) Diabetic ketoacidosis Current Visit: No Status: Acute Plan: Patient is 19 years of age admitted with diabetic ketoacidosis patient ran out of his insulin admit treat with IV insulin follow the protocol rule out infection he has had recurrent episodes of DKA takes 35 units after sheath and other insulin p.r.n. patient's white count is elevated his acidotic start on IV fluids continue to monitor his chemistries Qualifiers: - Advance Directives Does patient have a Living Will: No Does patient have a Durable POA for Healthcare: No
--- NOTE | 2019-11-24 16:56 | RAD REPORT ---
EXAM DESCRIPTION: RAD - Chest Single View - 11/24/2019 4:48 pm CLINICAL HISTORY: DKA, shortness of breath COMPARISON: Portable May 2018 TECHNIQUE: AP portable chest image was obtained 11/24/2019 4:48 pm . FINDINGS: Lungs are clear. Heart and vasculature are normal. No measurable pleural effusion and no p neumothorax. No acute bony abnormality seen. No acute aortic findings suspected. IMPRESSION: No acute cardiopulmonary process. No significant interval change.
[2019-11-24 17:22] LABS: Urine Blood TRACE (NEG); Urine Glucose 2+ (NEG); Urine Protein 2+ (NEG); Urine Specific Gravity >1.030 (1.005-1.030); Urine pH 5.5 (5.0-7.0)
[2019-11-24] MEDS: NACHLORIDE 0.45% 1,000 ML IV SCH ×2 (18:07→20:00)
[2019-11-24] MEDS: ENOXAPARIN 40 MG/0.4 ML SQ SCH (18:07)
[2019-11-24 18:30] LABS: BUN Blood Urea Nitrogen 18 mg/dL (7-18); Glucose Level 254 mg/dL (74-106); Sodium Level 139 mmol/L (136-145)
[2019-11-24 18:31] LABS: Bicarbonate 5 mmol/L (21-32); Potassium 5.2 mmol/L (3.5-5.1)
[2019-11-24] MEDS ORDERED: NA CHLORIDE 0.9% 100 ML ONE (19:41)
[2019-11-24] MEDS ORDERED: INSULIN -REGULAR HUMAN 50 UNIT/0.5 ML ML ONE (19:42)
[2019-11-24 20:04] LABS: Urine Appearance CLEAR; Urine Bilirubin NEGATIVE (NEG); Urine Blood NEGATIVE (NEG); Urine Color YELLOW; Urine Glucose 3+ (NEG); Urine Protein 1+ (NEG); Urine Urobilinogen 0.2 mg/dL (0.2-1.0)
[2019-11-24 20:12] LABS: Urine Microscopic Reflex ORDER UMIC
[2019-11-24 20:19] LABS: Urine Bacteria <20 /HPF (NONE SEEN); Urine RBC <5 /HPF (NONE SEEN); Urine Yeast PRESENT (NONE SEEN)
[2019-11-24 20:20] LABS: Urine Culture Reflex Order REFLEXED
[2019-11-24 20:31] LABS: Potassium 4.6 mmol/L (3.5-5.1)
[2019-11-25] MEDS: NACHLORIDE 0.45% 1,000 ML IV SCH
[2019-11-25 00:35] LABS: Potassium 4.1 mmol/L (3.5-5.1)
[2019-11-25] MEDS: D5 0.45 NS 1,000 ML IV SCH ×2 (02:34→05:20)
[2019-11-25 05:13] VITALS: BMI 17.3
[2019-11-25 05:33] LABS: Absolute Lymphocytes (CBC) 2.6 K/uL (0.7-4.9); Basophils % 0.2 % (0-1.3); Hematocrit 41.5 % (39.6-49.0); Lymphocytes % 25.7 % (15.3-44.8); MPV 7.3 fL (7.6-11.3); RBC Red Blood Cell Count 5.18 M/uL (4.33-5.43)
[2019-11-25 05:44] LABS: BUN Blood Urea Nitrogen 13 mg/dL (7-18); Bicarbonate 18 mmol/L (21-32); Glucose Level 169 mg/dL (74-106); Potassium 3.4 mmol/L (3.5-5.1); Sodium Level 140 mmol/L (136-145)
[2019-11-25] MEDS ORDERED: KCL 20 MEQ/100 mL IVPB 20 MEQ/100 ML BAG IV SCH (07:00)
[2019-11-25] MEDS: ENOXAPARIN 40 MG/0.4 ML SQ SCH (08:01)
[2019-11-25] MEDS: INSULIN 70/30 100 UNITS/ML SQ SCH ×2 (08:01→17:22)
--- NOTE | 2019-11-25 08:28 | P.DS ---
Discharge Date: 11/25/19 Disposition: ROUTINE DISCHARGE Discharge Condition: GOOD Reason for Admission: DKA Brief History of Present Illness: Patient is 19 years of age admitted with a 2 day history of nausea vomiting apparently ran out of his insulin admitted with DKA. Hospital Course: Patient's DKA has improved. Patient is clinically doing well. At this time, patient is stable for discharge with outpatient followup. Vital Signs/Physical Exam: Temp Pulse Resp BP Pulse Ox 98.6 F 78 13 97/57 L 99 11/25/19 04:00 11/25/19 06:00 11/25/19 06:00 11/25/19 06:00 11/25/19 06:00 General: Alert, In no apparent distress, Oriented x3 Laboratory Data at Discharge: WBC 10.0 K/uL (4.3-10.9) D 11/25/19 04:49 Hgb 13.7 g/dL (13.6-17.9) D 11/25/19 04:49 Hct 41.5 % (39.6-49.0) D 11/25/19 04:49 Plt Count 300 K/uL (152-406) D 11/25/19 04:49 Sodium 140 mmol/L (136-145) 11/25/19 04:49 Potassium 3.4 mmol/L (3.5-5.1) L 11/25/19 04:49 BUN 13 mg/dL (7-18) 11/25/19 04:49 Creatinine 1.15 mg/dL (0.55-1.3) 11/25/19 04:49 Glucose 169 mg/dL (74-106) H 11/25/19 04:49 Total Bilirubin 0.4 mg/dL (0.2-1.0) 11/24/19 14:35 AST 15 U/L (15-37) 11/24/19 14:35 ALT 27 U/L (12-78) 11/24/19 14:35 Alkaline Phosphatase 136 U/L (45-117) H 11/24/19 14:35 Lipase 47 U/L (73-393) L 11/24/19 14:35 Home Medications: Insulin Regular, Human [Novolin R Flexpen] 100 unit SQ SEECOM #1 insuln.pen 11/26/19 NPH, Human Insulin Isophane [Humulin N] 20 unit SQ BID #1 bottle 11/26/19 New Medications: NPH, Human Insulin Isophane [Humulin N] 20 unit SQ BID #1 bottle Insulin Regular, Human [Novolin R Flexpen] 100 unit SQ SEECOM #1 insuln.pen Patient Discharge Instructions: OK TO DC IV AND DC HOME. FOLLOW-UP WITH PRIMARY CARE PROVIDER IN 1-2 WEEKS. RETURN TO THE ER IF symptoms worsen. CALL or TEXT DR. BAH AT [phone] IF ANY QUESTIONS REGARDING HOSPITAL STAY. PLEASE CALL THE FLOOR AT [phone] IF ANY MEDICATION OR NURSING QUESTIONS. Diet: ADA Activity: Fall precautions Time spent managing pt's care (in minutes): 20
[2019-11-25 08:34] VITALS: O2SAT 100
[2019-11-25] MEDS ORDERED: POTASSIUM CL SA 10 MEQ TAB PO ONE (09:00)
[2019-11-25] MEDS ORDERED: GLUCAGON 1 MG/VIAL IM PRN (11:14)
[2019-11-25] MEDS ORDERED: D50W 25 GM/50 ML SYRINGE/VIAL IV PRN (11:14)
[2019-11-25] MEDS: INSULIN -REGULAR HUMAN 50 UNIT/0.5 ML ML SQ SCH ×3 (11:30→20:11)
[2019-11-25] MEDS ORDERED: NA CHLORIDE 0.9% 500 ML IV ONE (12:02)
--- NOTE | 2019-11-25 12:07 | P.PN ---
Subjective Date of Service: 11/25/19 Chief Complaint: DKA Subjective: No new changes, No C/O voiced Physical Examination - Vital Signs Temperature: 99.1 F Blood Pressure: 87/49 Pulse: 78 Respirations: 13 Pulse Ox (%): 100 - Physical Exam General: Alert, In no apparent distress, Oriented x3 HEENT: Atraumatic, Normocephalic, PERRLA, Mucous membr. moist/pink Neck: Supple, 2+ carotid pulse no bruit, JVD not distended Respiratory: Clear to auscultation bilaterally, Normal air movement Cardiovascular: No edema, Normal pulses, Regular rate/rhythm Gastrointestinal: Normal bowel sounds, Soft and benign Integumentary: No rashes, No breakdown Neurological: Normal speech, Normal strength at 5/5 x4 extr - Studies Laboratory Data (last 24 hrs) 11/24/19 14:35: Creatinine 1.29 11/24/19 14:35: WBC 17.2 H, Hgb 16.6, Hct 51.7 H, Plt Count 388 11/24/19 14:35: Sodium 135 L, Potassium 4.7, BUN 19 H, Creatinine 1.32 H, Glucose 329 H, Total Bilirubin 0.4, AST 15, ALT 27, Alkaline Phosphatase 136 H, Lipase 47 L Assessment And Plan - Current Problems (Diagnosis) (1) Diabetic ketoacidosis Current Visit: No Status: Acute Qualifiers: (2) Hyponatremia Onset Date: 06/08/18 Current Visit: No Status: Acute (3) Diabetes mellitus type I Onset Date: 06/08/18 Current Visit: No Status: Chronic Qualifiers: Diabetes mellitus complication status: with ketoacidosis Diabetes mellitus complication detail: without coma Qualified Code(s): E10.10 - Type 1 diabetes mellitus with ketoacidosis without coma (4) Tetrahydrocannabinol (THC) use disorder, mild, abuse Onset Date: 06/08/18 Current Visit: No Status: Chronic Physician Review: Patient Assessed, Agree with Above Assessment and Plan Physician Review Additional Text: 1 DKA - resolved DM - due to non adherence from financial issues - heparin he was previously on tree see Nat ran out of insurance -will consult case management for help with home medication -started on insulin 70 30, b.i.d. follow -continue Accu-Cheks with insulin sliding scale. -will transfer to floor Hypertension-borderline, will bolus NS 1 L x1 now Disposition-transfer to floor today -possible Dc in next 24 hr Critical Care: Yes Time Spent Managing PTS Care (In Minutes): 35
[2019-11-25 13:00] LABS: BUN Blood Urea Nitrogen 13 mg/dL (7-18); Bicarbonate 18 mmol/L (21-32); Glucose Level 210 mg/dL (74-106); Magnesium 2.1 mg/dL (1.8-2.4); Potassium 3.8 mmol/L (3.5-5.1); Sodium Level 138 mmol/L (136-145)
[2019-11-25] MEDS ORDERED: NA CHLORIDE 0.9% 1,000 ML IV ONE (17:10)
[2019-11-25] MEDS: NA CHLORIDE 0.9% 1,000 ML IV SCH (17:44)
[2019-11-26] MEDS: NA CHLORIDE 0.9% 1,000 ML IV SCH ×2 (03:07→14:00)
[2019-11-26 04:39] LABS: Absolute Lymphocytes (CBC) 3.4 K/uL (0.7-4.9); Basophils % 0.9 % (0-1.3); Hematocrit 36.6 % (39.6-49.0); Lymphocytes % 49.7 % (15.3-44.8); MPV 7.3 fL (7.6-11.3); RBC Red Blood Cell Count 4.64 M/uL (4.33-5.43)
[2019-11-26 05:34] LABS: ALT/SGPT 17 U/L (12-78); AST/SGOT 8 U/L (15-37); Albumin 2.7 g/dL (3.4-5.0); Alkaline Phosphatase 71 U/L (45-117); BUN Blood Urea Nitrogen 11 mg/dL (7-18); Bicarbonate 24 mmol/L (21-32); Bilirubin Total 0.3 mg/dL (0.2-1.0); Glucose Level 97 mg/dL (74-106); Magnesium 1.7 mg/dL (1.8-2.4); Sodium Level 140 mmol/L (136-145)
[2019-11-26 05:55] LABS: Potassium 2.8 mmol/L (3.5-5.1)
[2019-11-26] MEDS: INSULIN -REGULAR HUMAN 50 UNIT/0.5 ML ML SQ SCH ×3 (07:30→16:49)
[2019-11-26] MEDS: KCL 20 MEQ/100 mL IVPB 20 MEQ/100 ML BAG IV SCH ×3 (07:32→11:00)
[2019-11-26] MEDS: INSULIN 70/30 100 UNITS/ML SQ SCH ×2 (09:38→16:49)
[2019-11-26] MEDS: ENOXAPARIN 40 MG/0.4 ML SQ SCH (09:39)
[2019-11-26 13:50] VITALS: BP 111/63; TEMP 98.7
[2019-11-26] MEDS ORDERED: MAGNESIUM SULFATE 1 gm IVPB 1 GM/100 ML BAG IV ONE (14:00)
--- NOTE | 2019-11-26 16:16 | P.DS ---
Admission Date: 11/24/19 Discharge Date: 11/26/19 Primary Care Provider: None Disposition: ROUTINE DISCHARGE Discharge Condition: GOOD Reason for Admission: DKA Consultations: None Procedures: Medical problem List: Diabetic ketoacidosis with history of type 1 diabetes Hypokalemia likely from dehydration Bipolar disorder Brief History of Present Illness: 19-year-old male presented to the emergency room with diabetic ketoacidosis. Patient ran out of medication. Patient was evaluated in the emergency room and admitted for further treatment. Hospital Course: Patient presented with diabetic ketoacidosis. Patient apparently ran out of his medication. Patient previously on Tresiba. He has no PCP at this time. His diabetic ketoacidosis has resolved. At discharge he will continue with insulin NPH 20 units subcu twice daily. Patient will also be provided insulin regular to be used as a sliding scale. Mild sliding scale protocol will be provided. At discharge he will need to establish care with a local PCP to continue his care and further address. Social work may also provide information on patient assistance for medications. Diabetic ketoacidosis/diabetes type 1 education and information provided. At discharge he is without significant nausea vomiting. Recommend to monitor blood sugar at least twice daily. Recommend to maintain blood sugar less than 140 fasting and less than 200 after meals. Patient may increased NPH by 1-2 units if blood sugars remain above 200. Patient with history of bipolar disorder. Recommend follow up with psychiatry in the area to further address. Vital Signs/Physical Exam: Temp Pulse Resp BP Pulse Ox 98.7 F 70 20 111/63 97 11/26/19 12:00 11/26/19 12:00 11/26/19 12:00 11/26/19 12:11/26/19 12:00 General: Alert, In no apparent distress, Oriented x3, Cooperative HEENT: Atraumatic Neck: Supple Respiratory: Clear to auscultation bilaterally, Normal air movement Cardiovascular: Normal pulses, Regular rate/rhythm Gastrointestinal: Normal bowel sounds, Soft and benign, Non-distended, No tenderness, No masses, No rebound, No guarding Musculoskeletal: No erythema, No tenderness, No warmth Integumentary: No tenderness/swelling, No erythema, No warmth, No cyanosis Neurological: Normal speech, Normal strength at 5/5 x4 extr, Normal tone, Normal affect Laboratory Data at Discharge: WBC 6.8 K/uL (4.3-10.9) D 04/28/20 04:02 Hgb 12.3 g/dL (13.6-17.9) L 11/26/19 04:02 Hct 36.6 % (39.6-49.0) L 11/26/19 04:02 Plt Count 224 K/uL (152-406) D 11/26/19 04:02 Sodium 140 mmol/L (136-145) 11/26/19 04:02 Potassium 2.8 mmol/L (3.5-5.1) L* 11/26/19 04:02 BUN 11 mg/dL (7-18) 11/26/19 04:02 Creatinine 0.61 mg/dL (0.55-1.3) 11/26/19 04:02 Glucose 97 mg/dL (74-106) 11/26/19 04:02 Magnesium Cancelled 11/26/19 12:15 Total Bilirubin 0.3 mg/dL (0.2-1.0) 11/26/19 04:02 AST 8 U/L (15-37) L 11/26/19 04:02 ALT 17 U/L (12-78) 11/26/19 04:02 Alkaline Phosphatase 71 U/L (45-117) 11/26/19 04:02 Lipase 47 U/L (73-393) L 11/24/19 14:35 Home Medications: Insulin Regular, Human [Novolin R Flexpen] 100 unit SQ SEECOM #1 insuln.pen 11/26/19 NPH, Human Insulin Isophane [Humulin N] 20 unit SQ BID #1 bottle 11/26/19 New Medications: NPH, Human Insulin Isophane [Humulin N] 20 unit SQ BID #1 bottle Insulin Regular, Human [Novolin R Flexpen] 100 unit SQ SEECOM #1 insuln.pen Patient Discharge Instructions: Patient presented with diabetic ketoacidosis. Patient apparently ran out of his medication. Patient previously on Tresiba. He has no PCP at this time. His diabetic ketoacidosis has resolved. At discharge he will continue with insulin NPH 20 units subcu twice daily. Patient will also be provided insulin regular to be used as a sliding scale. Mild sliding scale protocol will be provided. At discharge he will need to establish care with a local PCP to continue his care and further address. Social work may also provide information on patient assistance for medications. Diabetic ketoacidosis/diabetes type 1 education and information provided. At discharge he is without significant nausea vomiting. Recommend to monitor blood sugar at least twice daily. Recommend to maintain blood sugar less than 140 fasting and less than 200 after meals. Patient may increased NPH by 1-2 units if blood sugars remain above 200. Patient with history of bipolar disorder. Recommend follow up with psychiatry in the area to further address. PLEASE CALL THE FLOOR AT [phone] IF ANY MEDICATION OR NURSING QUESTIONS. Diet: ADA Activity: Fall precautions Time spent managing pt's care (in minutes): 55
== END 2019-11-26 18:09 | disposition home or self-care (01) | DRG 638 ==
LOC: ER 14:15 → SUPCPDRO 14:15 → ERHOLD 15:55 → 3RD-ICU 17:21 → 2ND 11-26 01:08
PROVIDERS: ADMIT Internal Medicine Sleep Medicine; ATTEND Internal Medicine Nephrology
DX: E10.10 Type 1 diabetes mellitus with ketoacidosis without coma (principal); E87.1 Hypo-osmolality and hyponatremia; E87.6 Hypokalemia; E86.0 Dehydration; F31.9 Bipolar disorder, unspecified; Z79.4 Long term (current) use of insulin; T38.3X6A Underdosing of insulin and oral hypoglycemic [antidiabetic] drugs, initial encounter; Z91.128 Patient's intentional underdosing of medication regimen for other reason; F12.10 Cannabis abuse, uncomplicated; R03.0 Elevated blood-pressure reading, without diagnosis of hypertension
CPT/HCPCS: 36415; 71045; 80048; 80053; 80076; 81003; 81015; 82010; 82947; 83690; 83735; 84132; 85025; 87040; 87086; 87088; 96361; 96365; 96375; 99285; J1650; J1815; J2405; J3475; J7030; J7040; J7799

== ENCOUNTER 2020-07-18 22:17 | Inpatient (IN) | payer SELFPAY ==
[2020-07-18 23:08] LABS: Absolute Lymphocytes (CBC) 2.5 K/uL (0.7-4.9); Basophils % 0.4 % (0-1.3); Hematocrit 53.5 % (39.6-49.0); Lymphocytes % 18.5 % (15.3-44.8); MPV 7.5 fL (7.6-11.3); RBC Red Blood Cell Count 6.52 M/uL (4.33-5.43)
[2020-07-18] MEDS ORDERED: NA CHLORIDE 0.9% 1,000 ML ONE ×2 (23:13→23:58)
[2020-07-18] MEDS ORDERED: FAMOTIDINE 20 MG/2 ML VIAL IV ONE (23:13)
[2020-07-18] MEDS ORDERED: ONDANSETRON 4 MG/2 ML VIAL ONE (23:13)
[2020-07-18 23:26] LABS: ALT/SGPT 16 U/L (12-78); AST/SGOT 11 U/L (15-37); Albumin 4.7 g/dL (3.4-5.0); Alkaline Phosphatase 144 U/L (45-117); BUN Blood Urea Nitrogen 18 mg/dL (7-18); Bilirubin Direct 0.1 mg/dL (0-0.2); Bilirubin Total 0.6 mg/dL (0.2-1.0); Glucose Level 102 mg/dL (74-106); Lipase 68 U/L (73-393); Potassium 3.2 mmol/L (3.5-5.1); Protein, Total 9.8 g/dL (6.4-8.2); Sodium Level 139 mmol/L (136-145)
[2020-07-18 23:28] LABS: Bicarbonate 12 mmol/L (21-32)
[2020-07-19] MEDS ORDERED: NA CHLORIDE 0.9% 2,000 ML ONE (00:25)
[2020-07-19] MEDS ORDERED: POTASSIUM 25 MEQ EFFERV TAB ONE (00:25)
[2020-07-19 00:57] LABS: Arterial Blood Carboxyhemoglob 1.5 % (0-1.5); Blood Gas Oxyhemoglobin 95.5 % (94-97); Blood O2 Saturation 97.9 % (92-98.5)
--- NOTE | 2020-07-19 01:25 | ER ---
Nurse's Notes [facility] Name: David Merritt Age: 19 yrs Sex: Male : 2000 Arrival Date: 07/18/2020 Time: 22:18 Bed 17 Private MD: Diagnosis: Nausea and vomiting;Type 1 diabetes mellitus with ketoacidosis Presentation: 07/18 22:30 Chief complaint: Parent and/or Guardian states: he has n/v for few days. I think he is mg2 on DKA. he stopped taking his insulin 3 days ago. Coronavirus screen: Client denies travel out of the [place] in the last 14 days. Ebola Screen: No symptoms or risks identified at this time. Initial Sepsis Screen: Does the patient meet any 2 criteria? No. Patient's initial sepsis screen is negative. Does the patient have a suspected source of infection? No. Patient's initial sepsis screen is negative. Risk Assessment: Do you want to hurt yourself or someone else? Patient reports no desire to harm self or others. Onset of symptoms was July 18, 2020. 22:30 Method Of Arrival: Wheelchair mg2 22:30 Acuity: SHARRI 2 mg2 Historical: - Allergies: 22:46 NKA; mg2 - Home Meds: 22:46 Tresiba FlexTouch U-100 subcutaneous 30 unit daily for Type 1 Diabetes Mellitus mg2 [Active]; Abilify Oral [Active]; Adderall XR Oral [Active]; Depakote Oral [Active]; Novolin R Sub-Q [Active]; Wellbutrin Oral [Active]; - PMHx: 22:46 ADD/ADHD; Anxiety; Depression; Diabetes - IDDM; kidney disease; mg2 - PSHx: 22:46 None; mg2 - Immunization history:: Flu vaccine is not up to date. - Social history:: Smoking status: Patient reports the use of cigarette tobacco products, Patient uses street drugs, marijuana. Screenin:31 Abuse screen: Denies threats or abuse. Denies injuries from another. Nutritional mg2 screening: No deficits noted. Tuberculosis screening: No symptoms or risk factors identified. Fall Risk IV access (20 points). Assessment: 22:46 General: Appears Behavior is calm, cooperative. mg2 23:30 Pain: Complains of pain in abdomen. Neuro: Level of Consciousness is awake, alert, mg2 obeys commands, Oriented to person, place, time, situation. Cardiovascular: Capillary refill < 3 seconds Patient's skin is warm and dry. Respiratory: Airway is patent Respiratory effort is even, unlabored, Respiratory pattern is regular, symmetrical. GI: Abdomen is flat, non-distended, Reports nausea, vomiting. : No signs and/or symptoms were reported regarding the genitourinary system. EENT: No signs and/or symptoms were reported regarding the EENT system. Derm: Skin is intact, is healthy with good turgor, Skin is pink, warm \T\ dry. normal. Musculoskeletal: Circulation, motion, and sensation intact. Capillary refill < 3 seconds. 07/19 00:30 Reassessment: Patient appears in no apparent distress at this time. Patient and/or mg2 family updated on plan of care and expected duration. Pain level reassessed. Patient is alert, oriented x 3, equal unlabored respirations, skin warm/dry/pink. 02:32 Reassessment: Patient appears in no apparent distress at this time. Patient and/or mg2 family updated on plan of care and expected duration. Pain level reassessed. Patient is alert, oriented x 3, equal unlabored respirations, skin warm/dry/pink. patient informed about the plan for admission. Vital Signs: 07/18 22:30 BP 127 / 93; Pulse 96; Resp 18; Temp 98.5; Pulse Ox 100% on R/A; Weight 62.6 kg; Height mg2 5 ft. 10 in. (177.80 cm); 23:32 BP 118 / 87; Pulse 90; Resp 18; Pulse Ox 100% on R/A; mg2 07/19 00:30 Pulse 82; Resp 18; Pulse Ox 100% ; mg2 01:14 BP 137 / 87; Pulse 75; Resp 19; Temp 98.6; Pulse Ox 99% ; rr5 02:18 BP 105 / 75; Pulse 95; Resp 18; Pulse Ox 100% on R/A; mg2 02:34 BP 102 / 73; Pulse 91; Resp 18; Pulse Ox 100% on R/A; mg2 07/18 22:30 Body Mass Index 19.80 (62.60 kg, 177.80 cm) mg2 ED Course: 07/18 22:18 Patient arrived in ED. ag3 22:27 Rashard You, RN is Primary Nurse. mg2 22:28 Alfonso De La Cruz PA is PHCP. cp 22:28 Lamont Baird MD is Attending Physician. cp 22:44 Triage completed. mg2 22:45 Inserted saline lock: 20 gauge in left forearm, using aseptic technique. Blood jp3 collected. 22:46 No provider procedures requiring assistance completed. Inserted saline lock: 20 gauge mg2 in right antecubital area, using aseptic technique. Blood collected. 22:46 Arm band placed on. mg2 23:31 Patient has correct armband on for positive identification. Pulse ox on. NIBP on. Door mg2 closed. Warm blanket given. 07/19 01:23 Olivier Givens MD is Hospitalizing Provider. cp 02:18 Patient admitted, IV remains in place. mg2 Administered Medications: Discontinued: D5-1/2 NS with KCl 10 mEq/L 1000 ml IV at 125 ml/hr continuous 07/18 23:09 Drug: NS 0.9% 1000 ml Route: IV; Rate: 1 bolus; Site: left forearm; mg2 07/19 00:29 Follow up: Response: No adverse reaction; IV Status: Completed infusion; IV Intake: mg2 1000ml 07/18 23:09 Drug: Zofran (Ondansetron) 4 mg Route: IVP; Site: left forearm; mg2 07/19 00:29 Follow up: Response: No adverse reaction mg2 07/18 23:09 Drug: Pepcid 20 mg Route: IVP; Site: left forearm; mg2 07/19 00:30 Follow up: Response: No adverse reaction mg2 07/18 23:45 Drug: NS 0.9% 1000 ml Route: IV; Rate: 1000 ml; Site: left forearm; mg2 07/19 02:33 Follow up: Response: No adverse reaction; IV Status: Completed infusion; IV Intake: mg2 1000ml 00:29 Drug: Potassium Effervescent Tablet 50 mEq Route: PO; mg2 01:17 Follow up: Response: No adverse reaction mg2 00:29 Drug: NS 0.9% 1000 ml Route: IV; Rate: 1 bolus; Site: left forearm; mg2 02:33 Follow up: Response: No adverse reaction; IV Status: Completed infusion; IV Intake: mg2 1000ml 01:16 Drug: D50W 50 ml Route: IVP; Site: left forearm; mg2 02:17 Follow up: Response: No adverse reaction mg2 02:21 Drug: D5-1/2 NS with KCl 10 mEq/L 1000 ml Route: IV; Rate: 125 ml/hr; Site: left mg2 forearm; 02:26 Drug: Insulin Drip - (Insulin Regular Human 100 units, NS 0.9% 100 ml) {Co-Signature: mg2 rr5 (Jalen Espinoza RN).} Route: IV; Rate: 3 units/hr; Site: left forearm; 03:42 Follow up: IV Status: Infusion continued upon admission mg2 Intake: 00:29 IV: 1000ml; Total: 1000ml. mg2 02:33 IV: 1000ml; Total: 2000ml. mg2 02:33 IV: 1000ml; Total: 3000ml. mg2 Outcome: 01:24 Decision to Hospitalize by Provider. cp 03:41 Admitted to accompanied by nurse, family with patient, via stretcher, on monitor, with mg2 chart, Report called to [facility] 03:42 Condition: good mg2 03:42 Instructed on the need for admit. 03:43 Patient left the ED. mg2 Signatures: Alfonso De La Cruz PA PA cp Rashard You, RN RN mg2 Nato De La Rosa jp3 Yomaira Lund ag3 Jalen Espinoza RN RN rr5 Jalen Espinoza RN rr5 Corrections: (The following items were deleted from the chart) 07/18 23:31 22:46 General: Appears Behavior is calm, cooperative, mg2 mg2 07/19 02:34 02:32 Pulse 76bpm; Resp 18bpm; Pulse Ox 100% RA; mg2 mg2
--- NOTE | 2020-07-19 01:25 | EDPHYS ---
Physician Documentation [facility] Name: David Merritt Age: 19 yrs Sex: Male : 2000 Arrival Date: 07/18/2020 Time: 22:18 Bed 17 Private MD: ED Physician Lamont Baird HPI: 07/18 22:45 This 19 yrs old Black Male presents to ER via Wheelchair with complaints of cp Nausea/Vomiting. 22:45 The patient presents to the emergency department with nausea, that is moderate, cp vomiting, that is intermittent. Onset: The symptoms/episode began/occurred 3 day(s) ago. Possible causes: stopped insulin. Associated signs and symptoms: Pertinent negatives: diarrhea, fever, hematemesis. Historical: - Allergies: 22:46 NKA; mg2 - Home Meds: 22:46 Tresiba FlexTouch U-100 subcutaneous 30 unit daily for Type 1 Diabetes Mellitus mg2 [Active]; Abilify Oral [Active]; Adderall XR Oral [Active]; Depakote Oral [Active]; Novolin R Sub-Q [Active]; Wellbutrin Oral [Active]; - PMHx: 22:46 ADD/ADHD; Anxiety; Depression; Diabetes - IDDM; kidney disease; mg2 - PSHx: 22:46 None; mg2 - Immunization history:: Flu vaccine is not up to date. - Social history:: Smoking status: Patient reports the use of cigarette tobacco products, Patient uses street drugs, marijuana. ROS: 22:55 Constitutional: Positive for poor PO intake, Negative for body aches, chills, fever. cp 22:55 Eyes: Negative for injury, pain, redness, and discharge. cp 22:55 ENT: Negative for ear pain, sore throat, difficulty swallowing, difficulty handling secretions. 22:55 Cardiovascular: Negative for chest pain. 22:55 Respiratory: Negative for cough, shortness of breath, wheezing. 22:55 Abdomen/GI: Positive for abdominal pain, nausea and vomiting, anorexia, Negative for diarrhea, constipation, hematemesis. 22:55 : Negative for urinary symptoms. 22:55 Neuro: Negative for altered mental status, headache, syncope, weakness. 22:55 All other systems are negative. Exam: 23:00 Constitutional: The patient appears in no acute distress, alert, awake, non-toxic, well cp developed, well nourished. 23:00 Head/Face: Normocephalic, atraumatic. cp 23:00 Eyes: Periorbital structures: appear normal, Conjunctiva: normal, no exudate, no injection, Sclera: no appreciated abnormality, Lids and lashes: appear normal, bilaterally. 23:00 ENT: External ear(s): are unremarkable, Nose: is normal, Mouth: Lips: dry, Oral mucosa: dry, Posterior pharynx: Airway: no evidence of obstruction, patent. 23:00 Neck: ROM/movement: is normal, is supple, without pain, no range of motions limitations. 23:00 Chest/axilla: Inspection: normal, Palpation: is normal, no crepitus, no tenderness. 23:00 Cardiovascular: Rate: normal, Rhythm: regular. 23:00 Respiratory: the patient does not display signs of respiratory distress, Respirations: normal, no use of accessory muscles, no retractions, labored breathing, is not present, Breath sounds: are clear throughout, no decreased breath sounds, no stridor, no wheezing. 23:00 Abdomen/GI: Inspection: abdomen appears normal, Bowel sounds: active, all quadrants, Palpation: soft, in all quadrants, mild abdominal tenderness, in all quadrants, rebound tenderness, is not appreciated, voluntary guarding, is not appreciated, involuntary guarding, is not appreciated. 23:00 Back: pain, is absent, ROM is normal. 23:00 Skin: no rash present. 23:00 Neuro: Orientation: to person, place \T\ time. Mentation: is normal, Motor: moves all fours, strength is normal, Sensation: is normal. Vital Signs: 22:30 BP 127 / 93; Pulse 96; Resp 18; Temp 98.5; Pulse Ox 100% on R/A; Weight 62.6 kg; Height mg2 5 ft. 10 in. (177.80 cm); 23:32 BP 118 / 87; Pulse 90; Resp 18; Pulse Ox 100% on R/A; mg2 12/20 00:30 Pulse 82; Resp 18; Pulse Ox 100% ; mg2 01:14 BP 137 / 87; Pulse 75; Resp 19; Temp 98.6; Pulse Ox 99% ; rr5 02:18 BP 105 / 75; Pulse 95; Resp 18; Pulse Ox 100% on R/A; mg2 02:34 BP 102 / 73; Pulse 91; Resp 18; Pulse Ox 100% on R/A; mg2 07/18 22:30 Body Mass Index 19.80 (62.60 kg, 177.80 cm) mg2 MDM: 07/18 22:33 Patient medically screened. cp 07/19 01:15 Data reviewed: vital signs, nurses notes, lab test result(s), EKG, I have discussed the cp patient's presentation/case with the attending Emergency Department Physician;. 01:15 Differential diagnosis: gastritis, cholecystitis, pancreatitis, appendicitis, viral cp gastroenteritis, gastroenteritis, DKA. Counseling: I had a detailed discussion with the patient and/or guardian regarding: the historical points, exam findings, and any diagnostic results supporting the discharge/admit diagnosis, lab results, the need for further work-up and treatment in the hospital. 01:20 Physician consultation: Olivier Givens MD was called at 01:15, was contacted at 01:15, regarding admission, to the ICU, patient's condition. 07/18 22:42 Order name: Basic Metabolic Panel; Complete Time: 23:42 [facility] 07/18 23:42 Interpretation: Normal except: K 3.2; CL 109; CO2 12. cp 07/18 22:42 Order name: CBC with Diff; Complete Time: 23:42 [facility] 07/18 23:43 Interpretation: Normal except: WBC 13.6; RBC 6.52; HGB 18.3; HCT 53.5; MCV 82.0; MPV cp 7.5; NEUT A 10.0. 07/18 22:42 Order name: Hepatic Function; Complete Time: 23:42 [facility] 07/18 22:42 Order name: Lipase; Complete Time: 23:42 [facility] 07/18 22:42 Order name: Ketone, Serum; Complete Time: 23:42 [facility] 07/18 22:48 Order name: UDS cp 07/18 22:48 Order name: Urine Microscopic Only 07/18 22:53 Order name: Glucose, Ancillary Testing; Complete Time: 23:42 [facility] 07/19 00:14 Order name: ABG; Complete Time: 01:14 07/19 01:22 Order name: Glucose, Ancillary Testing [facility] 07/19 02:16 Order name: Basic Metabolic Panel [facility] 07/19 02:16 Order name: Comprehensive Metabolic Panel [facility] 07/19 02:16 Order name: Basic Metabolic Panel [facility] 07/19 02:17 Order name: CBC with Automated Diff [facility] 07/19 02:17 Order name: CBC with Automated Diff [facility] 07/19 02:17 Order name: Comprehensive Metabolic Panel [facility] 07/19 02:18 Order name: Glucose, Ancillary Testing [facility] 07/19 02:51 Order name: Magnesium mg2 07/19 02:51 Order name: Phosphorus mg2 07/19 03:16 Order name: SARS-COV-2 RT PCR [facility] 07/19 03:19 Order name: Phosphorus [facility] 07/19 03:19 Order name: Magnesium [facility] 07/19 03:42 Order name: Glucose, Ancillary Testing [facility] 07/18 22:42 Order name: IV Saline Lock; Complete Time: 22:42 mg2 07/18 22:42 Order name: Labs collected and sent; Complete Time: 22:42 mg2 07/19 00:57 Order name: Accucheck Blood Glucose; Complete Time: 01:13 cp 07/19 02:17 Order name: CONS Pharmacy Consult [facility] 07/19 02:17 Order name: Full Liquid [facility] 07/19 02:18 Order name: CONS Physician Consult [facility] Administered Medications: Discontinued: D5-1/2 NS with KCl 10 mEq/L 1000 ml IV at 125 ml/hr continuous 07/18 23:09 Drug: NS 0.9% 1000 ml Route: IV; Rate: 1 bolus; Site: left forearm; mg2 07/19 00:29 Follow up: Response: No adverse reaction; IV Status: Completed infusion; IV Intake: mg2 1000ml 07/18 23:09 Drug: Zofran (Ondansetron) 4 mg Route: IVP; Site: left forearm; mg2 07/19 00:29 Follow up: Response: No adverse reaction mg2 07/18 23:09 Drug: Pepcid 20 mg Route: IVP; Site: left forearm; mg2 07/19 00:30 Follow up: Response: No adverse reaction mg2 07/18 23:45 Drug: NS 0.9% 1000 ml Route: IV; Rate: 1000 ml; Site: left forearm; mg2 07/19 02:33 Follow up: Response: No adverse reaction; IV Status: Completed infusion; IV Intake: mg2 1000ml 00:29 Drug: Potassium Effervescent Tablet 50 mEq Route: PO; mg2 01:17 Follow up: Response: No adverse reaction mg2 00:29 Drug: NS 0.9% 1000 ml Route: IV; Rate: 1 bolus; Site: left forearm; mg2 02:33 Follow up: Response: No adverse reaction; IV Status: Completed infusion; IV Intake: mg2 1000ml 01:16 Drug: D50W 50 ml Route: IVP; Site: left forearm; mg2 02:17 Follow up: Response: No adverse reaction mg2 02:21 Drug: D5-1/2 NS with KCl 10 mEq/L 1000 ml Route: IV; Rate: 125 ml/hr; Site: left mg2 forearm; 02:26 Drug: Insulin Drip - (Insulin Regular Human 100 units, NS 0.9% 100 ml) {Co-Signature: mg2 rr5 (Jalen Espinoza RN).} Route: IV; Rate: 3 units/hr; Site: left forearm; 03:42 Follow up: IV Status: Infusion continued upon admission mg2 Disposition: 04:55 Co-signature as Attending Physician, Lamont Baird MD. 7 Disposition: 07/19/20 01:24 Hospitalization ordered by Olivier Givens for Inpatient Admission. Preliminary diagnosis are Nausea and vomiting, Type 1 diabetes mellitus with ketoacidosis. - Bed requested for Intensive Care Unit. - Status is Inpatient Admission. mg2 - Condition is Stable. - Problem is new. - Symptoms have improved. Signatures: Dispatcher [employer] EDMS Tori Ball RN RN dm5 Heidi Yen RN RN mw Page, Corey, JEANNE PA cp Rashard You RN RN mg2 Holmes, Maurice, MD MD 7 [facility] [id number] Jalen Espinoza RN rr5 Corrections: (The following items were deleted from the chart) 01:24 Hospitalization Ordered by Olivier Givens MD for Inpatient Admission. Preliminary mw diagnosis is Nausea and vomiting; Type 1 diabetes mellitus with ketoacidosis. Bed requested for Intensive Care Unit. Status is Inpatient Admission. Condition is Stable. Problem is new. Symptoms have improved. cp 01:50 01:29 07/19/2020 01:24 Hospitalization Ordered by Olivier Givens MD for Inpatient tt3 Admission. Preliminary diagnosis is Nausea and vomiting; Type 1 diabetes mellitus with ketoacidosis. Bed requested for Intensive Care Unit. Status is Inpatient Admission. Condition is Stable. Problem is new. Symptoms have improved. mw 02:01 01:19 CORONAVIRUS+MR.LAB.BRZ ordered. [facility] EDMS 02:04 01:50 07/19/2020 01:24 Hospitalization Ordered by Olivier Givens MD for Inpatient dm5 Admission. Preliminary diagnosis is Nausea and vomiting; Type 1 diabetes mellitus with ketoacidosis. Bed requested for Intensive Care Unit. Status is Inpatient Admission. Condition is Stable. Problem is new. Symptoms have improved. tt3 02:16 01:17 BASIC METABOLIC PANEL+C.LAB.BRZ ordered. [facility] EDMS 03:43 02:04 07/19/2020 01:24 Hospitalization Ordered by Olivier Givens MD for Inpatient mg2 Admission. Preliminary diagnosis is Nausea and vomiting; Type 1 diabetes mellitus with ketoacidosis. Bed requested for Intensive Care Unit. Status is Inpatient Admission. Condition is Stable. Problem is new. Symptoms have improved. dm5
[2020-07-19] MEDS ORDERED: D50W 50 ML IV ONE (01:26)
--- NOTE | 2020-07-19 02:05 | P.HP ---
Certification for Inpatient Patient admitted to: Observation With expected LOS: <2 Midnights Patient will require the following post-hospital care: None Practitioner: I am a practitioner with admitting privileges, knowledge of patient current condition, hospital course, and medical plan of care. Services: Services provided to patient in accordance with Admission requirements found in Title 42 Section 412.3 of the Code of Federal Regulations Patient History Date of Service: 07/19/20 Reason for admission: weakness, nausea and vomiting History of Present Illness: 19 yr old AA male with type I- DM since age 12 , on insulin regime with Tresiba 40 unit qhs and sliding scale Novolog , hx of Depression on multiple anxiolytic presented after developing nausea and vomiting this am , he also admit to generalized abdominal pain , which is more of cramps . He denies any diarrhea, no constipation . He state he has self stopped taking his insulin since last 3 days . He admit to feeling more depressed and his meds not working well for him but denies any suicidal ideation of self harm intent . He has a hx of DKA in the past with last episode over a year ago . He took his tresiba and novolog hti afternoon to help ameliorate the symptoms prior to coming to the ER . in the ER , ABG shows anion gap acidosis but normal rnage glucose levels . He was given 2 L bolus of NS and glucose dropped to 56. He has been given D50 and plan to start insulin gtt He is being admitted for DKA Allergies No Known Drug Allergies Allergy (Verified 01/02/19 04:53) Unknown Home Medications: Insulin Regular, Human [Novolin R Flexpen] 100 unit SQ SEECOM #1 insuln.pen 11/26/19 NPH, Human Insulin Isophane [Humulin N] 20 unit SQ BID #1 bottle 11/26/19 - Past Medical/Surgical History Diabetic: Yes -: Diabetes type 1 insulin-dependent -: Depression with anxiety -: THC use -: ADD/ADHD -: kidney disease Past Surgical History: Reviewed- Non-Contributory Psychosocial/ Personal History: Patient lives with his mother but at times with his brother. He is single. Has no children. 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 - Family History Family History: Reviewed- Non-Contributory - Social History Smoking Status: Current every day smoker Alcohol use: Yes CD- Drugs: Yes Caffeine use: Yes Place of Residence: Home Review of Systems 10-point ROS is otherwise unremarkable Physical Examination - Physical Exam General: Alert, In no apparent distress, Oriented x3 HEENT: Atraumatic, Normocephalic, PERRLA, Mucous membr. moist/pink Neck: Supple, 2+ carotid pulse no bruit, JVD not distended Respiratory: Clear to auscultation bilaterally, Normal air movement Cardiovascular: No edema, Normal pulses, Regular rate/rhythm, Normal S1 S2 Capillary refill: <2 Seconds Gastrointestinal: Normal bowel sounds, Soft and benign, Non-distended Musculoskeletal: No clubbing, No swelling Neurological: Normal gait, Normal speech, Normal strength at 5/5 x4 extr, Cranial nerves 3-12 intact - Studies Laboratory Data (last 24 hrs) 07/18/20 22:50: WBC 13.6 H, Hgb 18.3 H, Hct 53.5 H, Plt Count 391 07/18/20 22:50: Sodium 139, Potassium 3.2 L, BUN 18, Creatinine 1.20, Glucose 102, Total Bilirubin 0.6, AST 11 L, ALT 16, Alkaline Phosphatase 144 H, Lipase 68 L Assessment and Plan - Problems (Diagnosis) (1) Diabetic ketoacidosis Current Visit: No Status: Acute Qualifiers: (2) Nausea & vomiting Onset Date: 06/08/18 Current Visit: No Status: Acute (3) Diabetes mellitus type I Onset Date: 06/08/18 Current Visit: No Status: Chronic Qualifiers: Diabetes mellitus complication status: with ketoacidosis Diabetes mellitus complication detail: without coma Qualified Code(s): E10.10 - Type 1 diabetes mellitus with ketoacidosis without coma (4) Tobacco abuse Onset Date: 06/08/18 Current Visit: No Status: Chronic Discharge Plan: Home - Advance Directives Does patient have a Living Will: No Does patient have a Durable POA for Healthcare: No Physician Review: Patient Assessed, Agree with Above Assessment and Plan Physician Review Additional Text: # DKA - resolving but still mild anion gap - will proceed with starting low dose insulin gtt - start IVF with D5NS WITH KCL -will replete k with K phos now - follow repeat BMP in 2 hrs , if anion gap < 15 , will dc insulin gtt - due to non compliance , need for med adherence discussed -poorly controlled depression may be contributing # Depression - denies suicidal ideation -since meds non complaint and still symptoms , will consult venu for eval and meds adjustment # Tobacco use - cessation advised, start Nicotine patch # Dispo- possible 24 hrs -48 hrs Critical Care: Yes Time Spent Managing Pts Care (In Minutes): 65
[2020-07-19] MEDS ORDERED: MORPHINE 2 MG/ML SYR IV PRN (02:10)
[2020-07-19] MEDS ORDERED: NA CHLORIDE 0.9% 100 ML ONE (02:10)
[2020-07-19] MEDS ORDERED: INSULIN -REGULAR HUMAN 50 UNIT/0.5 ML ML ONE ×3 (02:10→20:08)
[2020-07-19] MEDS ORDERED: ONDANSETRON 4 MG/2 ML VIAL IV PRN (02:10)
[2020-07-19] MEDS ORDERED: D5.45NS W/KCL 20MEQ 0 ML IV ONE (02:11)
[2020-07-19] MEDS ORDERED: D50W 25 GM/50 ML SYRINGE IV PRN ×3 (02:13→09:14)
[2020-07-19] MEDS ORDERED: GLUCAGON 1 MG/VIAL IM PRN ×3 (02:13→09:14)
[2020-07-19] MEDS ORDERED: POTASSIUM PHOS 30 MM in NA CHLORIDE 0.9% 500 ML IV ONE (02:13)
[2020-07-19] MEDS ORDERED: INSULIN -REGULAR HUMAN 100 UNIT in NA CHLORIDE 0.9% 100 ML IV SCH (02:15)
[2020-07-19] MEDS ORDERED: KCL 20 MEQ/100 mL IVPB 20 MEQ/100 ML BAG IV ONE (02:30)
[2020-07-19] MEDS ORDERED: D5 0.45 NS 1,000 ML IV ONE (02:30)
[2020-07-19 03:00] LABS: BUN Blood Urea Nitrogen 16 mg/dL (7-18); Bicarbonate 15 mmol/L (21-32); Glucose Level 160 mg/dL (74-106); Sodium Level 141 mmol/L (136-145)
[2020-07-19] MEDS: D5.45NS W/KCL 20MEQ 1,000 ML IV SCH ×2 (03:00→13:00)
[2020-07-19 03:18] LABS: Magnesium 1.7 mg/dL (1.8-2.4); Phosphorus 2.1 mg/dL (2.5-4.9)
[2020-07-19] MEDS ORDERED: D5.45NS W/KCL 20MEQ 1,000 ML IV ONE (03:30)
[2020-07-19] MEDS ORDERED: POTASSIUM PHOS IN 0.9 % NACL 15 MMOL/250 ML BAG IV ONE ×2 (03:33→04:42)
[2020-07-19] MEDS ORDERED: MAGNESIUM SULFATE 1 gm IVPB 1 GM/100 ML BAG IV ONE ×2 (03:34→04:10)
[2020-07-19] MEDS ORDERED: NICOTINE 21 MG/PAT TD ONE (07:36)
[2020-07-19 07:59] LABS: Basophils % 0.3 % (0-1.3); Hematocrit 42.9 % (39.6-49.0); Lymphocytes % 29.3 % (15.3-44.8); MPV 7.2 fL (7.6-11.3); RBC Red Blood Cell Count 5.17 M/uL (4.33-5.43)
[2020-07-19] MEDS: NICOTINE 21 MG/PAT TD SCH (08:34)
[2020-07-19 08:47] LABS: Sodium Level 141 mmol/L (136-145)
[2020-07-19 08:48] LABS: ALT/SGPT 11 U/L (12-78); AST/SGOT 13 U/L (15-37); Alkaline Phosphatase 93 U/L (45-117); BUN Blood Urea Nitrogen 14 mg/dL (7-18); Bicarbonate 20 mmol/L (21-32); Bilirubin Total 0.6 mg/dL (0.2-1.0); Glucose Level 147 mg/dL (74-106); Potassium 3.8 mmol/L (3.5-5.1); Protein, Total 6.4 g/dL (6.4-8.2)
[2020-07-19] MEDS: INSULIN GLARGINE 100 UNITS/ML SQ SCH ×2 (09:50→19:58)
[2020-07-19] MEDS ORDERED: INSULIN GLARGINE 100 UNITS/ML SQ ONE ×2 (10:03→20:07)
[2020-07-19] MEDS: INSULIN -REGULAR HUMAN 50 UNIT/0.5 ML ML SQ SCH ×3 (11:30→19:58)
--- NOTE | 2020-07-19 12:55 | P.PN ---
Date of Service: 07/19/20 DKA Anion gap resolved Will change to basal insulin sliding scale IV fluids to continue change to normal saline Patient looks depressed psych consult was obtained psych recommended inpatient psych admission and management Patient willing to go voluntarily Possible Dc to inpatient psych in a.m.
[2020-07-19 20:29] LABS: ALT/SGPT 13 U/L (12-78); AST/SGOT 11 U/L (15-37); Alkaline Phosphatase 95 U/L (45-117); BUN Blood Urea Nitrogen 13 mg/dL (7-18); Bicarbonate 27 mmol/L (21-32); Bilirubin Total 0.5 mg/dL (0.2-1.0); Glucose Level 294 mg/dL (74-106); Potassium 3.6 mmol/L (3.5-5.1); Protein, Total 6.3 g/dL (6.4-8.2); Sodium Level 141 mmol/L (136-145)
[2020-07-19] MEDS ORDERED: POTASSIUM CL SA 10 MEQ TAB PO ONE ×2 (20:34→21:18)
[2020-07-19 21:04] LABS: Barbiturates NEGATIVE (NEGATIVE); Benzodiazepines NEGATIVE (NEGATIVE); Cocaine NEGATIVE (NEGATIVE); METHAMPHETAM NEGATIVE (NEGATIVE); Methadone NEGATIVE (NEGATIVE); Opiates NEGATIVE (NEGATIVE); Phencyclidine NEGATIVE (NEGATIVE); THC Cannibis POSITIVE (NEGATIVE)
[2020-07-19 21:09] LABS: Urine Appearance CLEAR; Urine Bilirubin NEGATIVE (NEG); Urine Blood NEGATIVE (NEG); Urine Color YELLOW; Urine Glucose 3+ (NEG); Urine Protein NEGATIVE (NEG); Urine Specific Gravity >=1.030 (1.005-1.030); Urine Urobilinogen 0.2 mg/dL (0.2-1.0)
[2020-07-19 21:16] LABS: Urine Bacteria NONE SEEN /HPF (NONE SEEN); Urine RBC <5 /HPF (NONE SEEN)
[2020-07-20 05:28] LABS: Absolute Lymphocytes (CBC) 3.2 K/uL (0.7-4.9); Basophils % 0.6 % (0-1.3); Hematocrit 40.3 % (39.6-49.0); Lymphocytes % 51.5 % (15.3-44.8); MPV 7.2 fL (7.6-11.3); RBC Red Blood Cell Count 4.95 M/uL (4.33-5.43)
[2020-07-20 05:38] LABS: ALT/SGPT 11 U/L (12-78); AST/SGOT 10 U/L (15-37); Albumin 2.8 g/dL (3.4-5.0); Alkaline Phosphatase 86 U/L (45-117); BUN Blood Urea Nitrogen 15 mg/dL (7-18); Bicarbonate 27 mmol/L (21-32); Bilirubin Total 0.4 mg/dL (0.2-1.0); Glucose Level 136 mg/dL (74-106); Magnesium 1.8 mg/dL (1.8-2.4); Phosphorus 3.4 mg/dL (2.5-4.9); Protein, Total 6.1 g/dL (6.4-8.2); Sodium Level 142 mmol/L (136-145)
[2020-07-20 05:57] LABS: Blood Morphology Comment NOT SEEN (NOT SEEN); Platelet Estimate ADEQ
[2020-07-20] MEDS ORDERED: INSULIN GLARGINE 100 UNITS/ML SQ ONE (07:18)
[2020-07-20] MEDS ORDERED: NICOTINE 21 MG/PAT TD ONE (07:18)
[2020-07-20] MEDS ORDERED: POTASSIUM CL SA 10 MEQ TAB PO ONE ×2 (07:19→09:00)
[2020-07-20] MEDS ORDERED: INSULIN -REGULAR HUMAN 50 UNIT/0.5 ML ML ONE ×3 (07:19→16:56)
[2020-07-20] MEDS: INSULIN GLARGINE 100 UNITS/ML SQ SCH (07:31)
[2020-07-20] MEDS: INSULIN -REGULAR HUMAN 50 UNIT/0.5 ML ML SQ SCH ×3 (07:31→16:42)
[2020-07-20] MEDS: NICOTINE 21 MG/PAT TD SCH (07:32)
[2020-07-20] MEDS ORDERED: VENLAFAXINE HCL XR 37.5MG CAP PO SCH (09:00)
[2020-07-20 11:26] VITALS: TEMP 98.5
--- NOTE | 2020-07-20 13:18 | P.DS ---
Admission Date: 07/19/20 Discharge Date: 07/20/20 Primary Care Provider: None; [facility] Disposition: ROUTINE DISCHARGE Discharge Condition: GOOD Reason for Admission: weakness, nausea and vomiting Consultations: TOBI-Dr. Little Procedures: Medical problem list: Nausea and vomiting secondary to DKA with history of type 1 diabetes with poor compliance with medication Depression with anxiety THC use Brief History of Present Illness: 19-year-old male with history of type 1 diabetes. Patient also with history of depression. Patient presented with nausea, vomiting. Patient reported that he stop taking his insulin about 3 days ago. He was feeling more depressed. He felt his medication was not working. He denied any suicidal ideation. Patient was admitted for DKA. Hospital Course: Patient with history of type 1 diabetes. Patient presented with nausea and vomiting secondary to DKA. Patient had reported that he stop taking his insulin medication. He felt his medication was not helping. The patient was admitted for treatment of DKA. A1c 12.0. DKA resolved. Patient has done well with current medication. Blood sugars controlled. At discharge patient will continue with Lantus 10 units subcu twice daily. Patient will also continue with insulin sliding scale as directed. Recommend to monitor his blood sugars at least twice daily. Recommend to maintain blood sugars less than 140 fasting and less than 200 after meals. Recommend to establish care with a local PCP to continue his care and monitor closely. Patient would benefit with endocrinology evaluation as an outpatient to further address his diabetes. Education on compliance with his medications, diabetes mellitus type 1, and DKA provided. Patient with history of depression with anxiety. Patient takes medication. Patient was not suicidal. Patient was seen and evaluated by psychiatry. Psych iatry considered inpatient hospitalization at a psychiatric facility as the patient had reported that he would not take his medication. After further evaluation and treatment the patient is willing to take his medications appropriately. He is not suicidal. Patient was re-evaluated by psychiatry. Psychiatry recommended to continue Effexor. Psychiatry agreed with plan to discharge patient with mother. Close follow up with [facility] in [place] will be arranged. Patient will continue with his current medication Effexor XR 37.5 mg daily. Patient will follow up with psychiatry within 1 week to further address his condition. Patient was positive for THC. THC cessation education provided. Vital Signs/Physical Exam: Temp Pulse Resp BP Pulse Ox 98.5 F 80 16 103/69 96 12/21/20 11:00 07/20/20 11:00 07/20/20 11:00 07/20/20 11:00 07/20/20 11:00 General: Alert, In no apparent distress, Oriented x3, Cooperative HEENT: Atraumatic Neck: Supple Respiratory: Clear to auscultation bilaterally, Normal air movement Cardiovascular: Normal pulses, Regular rate/rhythm Gastrointestinal: Normal bowel sounds, Soft and benign, Non-distended Integumentary: No erythema, No warmth, No cyanosis Neurological: Normal speech, Normal strength at 5/5 x4 extr, Normal tone, Abnormal affect (Flat affect) Laboratory Data at Discharge: WBC 6.2 K/uL (4.3-10.9) 07/20/20 05:02 Hgb 13.6 g/dL (13.6-17.9) 07/20/20 05:02 Hct 40.3 % (39.6-49.0) 07/20/20 05:02 Plt Count 241 K/uL (152-406) 07/20/20 05:02 Sodium 142 mmol/L (136-145) 07/20/20 05:02 Potassium 3.0 mmol/L (3.5-5.1) L 07/20/20 05:02 BUN 15 mg/dL (7-18) 07/20/20 05:02 Creatinine 0.72 mg/dL (0.55-1.3) 07/20/20 05:02 Glucose 136 mg/dL (74-106) H 07/20/20 05:02 Phosphorus 3.4 mg/dL (2.5-4.9) D 07/20/20 05:02 Magnesium 1.8 mg/dL (1.8-2.4) 07/20/20 05:02 Total Bilirubin 0.4 mg/dL (0.2-1.0) 07/20/20 05:02 AST 10 U/L (15-37) L 07/20/20 05:02 ALT 11 U/L (12-78) L 07/20/20 05:02 Alkaline Phosphatase 86 U/L (45-117) 07/20/20 05:02 Lipase 68 U/L (73-393) L 07/18/20 22:50 Home Medications: Insulin Regular, Human [Novolin R Flexpen] 100 unit SQ SEECOM #1 insuln.pen 11/26/19 Insulin Glargine Human [Lantus*] 10 units SQ BID #1 vial 07/20/20 Venlafaxine HCl *Xr* [Effexor XR*] 37.5 mg PO DAILY #30 cap 07/20/20 New Medications: Venlafaxine HCl *Xr* [Effexor XR*] 37.5 mg PO DAILY #30 cap Insulin Glargine Human [Lantus*] 10 units SQ BID #1 vial Patient Discharge Instructions: 1. Recommend follow up with PCP in 1 week to follow up this hospitalization. 2. Patient with history of type 1 diabetes. Patient presented with nausea and vomiting secondary to DKA. Patient had reported that he stop taking his insulin medication. He felt his medication was not helping. The patient was admitted for treatment of DKA. A1c 12.0. DKA resolved. Patient has done well with current medication. Blood sugars controlled. At discharge patient will continue with Lantus 10 units subcu twice daily. Patient will also continue with insulin sliding scale as directed. Recommend to monitor his blood sugars at least twice daily. Recommend to main tain blood sugars less than 140 fasting and less than 200 after meals. Recommend to establish care with a local PCP to continue his care and monitor closely. Patient would benefit with endocrinology evaluation as an outpatient to further address his diabetes. Education on compliance with his medications, diabetes mellitus type 1, and DKA provided. 3. Patient with history of depression with anxiety. Patient takes medication. Patient was not suicidal. Patient was seen and evaluated by psychiatry. Psychiatry considered inpatient hospitalization at a psychiatric facility as the patient had reported that he would not take his medication. After further evaluation and treatment the patient is willing to take his medications appropriately. He is not suicidal. Patient was re-evaluated by psychiatry. Psychiatry recommended to continue Effexor. Psychiatry agreed with plan to discharge patient with mother. Close follow up with [facility] in [place] will be arranged. Patient will continue with his current medication Effexor XR 37.5 mg daily. Patient will follow up with psychiatry within 1 week to further address his condition. 4. Patient was positive for THC. THC cessation education provided. Diet: ADA Activity: Ad jesus manuel Followup: NONE,NONE [Primary Care Provider] - Time spent managing pt's care (in minutes): 55
[2020-07-20 15:05] VITALS: BP 114/74
[2020-07-20 15:31] VITALS: O2SAT 99
--- NOTE | 2020-07-27 06:06 | CON ---
Date of Consultation: 07/19/2020 Reason For Consultation: Evaluation of severe depression with possible suicide attempt, recommendation of care. History Of Present Illness: Mr. René Rolon is a 19-year-old male with history of type 1 diabetes mellitus since age 14, insulin dependent, was brought to the ER by the mom on account of being severely depressed and refusing to take his insulin for about 2 days, recently became lethargic and confuse. On evaluation, patient admits to feeling very depressed which he said has been ongoing for few weeks. Depressed mood is associated with anhedonia, lack of motivation, and lack of energy, feeling hopeless and helpless. States he is socially withdrawn because he feels "no one likes me". My friends have all left." He says he has been having recurrent bouts of depression for about several years and has had multiple acute inpatient admissions with the last being in 2017 due to severe depression and suicidal ideation. Patient denies currently suicidal, but continues to express his desire not to take the insulin and also noted that he also history of multiple self harmful behavior which entails slashing his wrist with sharp objects, last self-harm is about 3 years, lives with mom, and has no relationship with his biological dad. Patient admits to smoking marijuana occasionally and denies abuse of alcoholic beverages. No history of psychosis. No history of bipolar disorder. Patient sees a psychiatrist at mental health facility in [facility]. Physical Examination: General: He is oriented to time, person, and place. HEENT: Atraumatic, normocephalic. PERRLA. Mucous membrane moist and pink. Musculoskeletal System: No clubbing, no swelling. Mental Status Examination: Patient is a well-nourished male, not in any acute distress, lying in bed. Patient is superficially cooperative with interview, is alert, oriented to person, place, and time. unable to perform serial 7's, however speech is spontaneous, normal in rate, rhythm, and volume. Mood is described as depressed. Affect is flat. Thought content, no suicidal attempt, no rumination or obsession, no auditory or visual hallucinations. Patient is internally preoccupied. Insight, judgement, and impulse control are limited. Diagnoses: 1. Major depressive disorder, severe, without psychotic features. 2. Anxiety disorder, unspecified. Plan: Initial recommendation is for acute psych inpatient admission for patient safety. He was however subsequently discharge to his mother 24 hours later to followup with his outpatient psychiatric when medically stable on further psychiatric evaluation. Recommend patient to continue his psychiatric medications. JAVIER Voice ID: [id number] Report ID: [id number] SANJIV
== END 2020-07-20 17:00 | disposition home or self-care (01) | DRG 639 ==
LOC: ER 22:17 → ERHOLD 07-19 02:20 → OBSVTOIN 07-19 02:20
PROVIDERS: ADMIT Internal Medicine; ATTEND Family Medicine
DX: E10.10 Type 1 diabetes mellitus with ketoacidosis without coma (principal); F41.8 Other specified anxiety disorders; F17.210 Nicotine dependence, cigarettes, uncomplicated; Z91.14 Patient's other noncompliance with medication regimen; Z79.4 Long term (current) use of insulin; Z79.899 Other long term (current) drug therapy; Z20.828 Contact with and (suspected) exposure to other viral communicable diseases
CPT/HCPCS: 36415; 80048; 80053; 80076; 80307; 81001; 82010; 82805; 82947; 83036; 83690; 83735; 84100; 84132; 85025; 96361; 96365; 96375; 99285; J1815; J2405; J3475; J3480; J7030; J7040; J7799; U0003

== ENCOUNTER 2020-09-02 03:44 | Inpatient (IN) | payer SELFPAY ==
[2020-09-02 04:40] LABS: Absolute Lymphocytes (CBC) 3.6 K/uL (0.7-4.9); Basophils % 0.4 % (0-1.3); Hematocrit 48.3 % (39.6-49.0); Lymphocytes % 36.4 % (15.3-44.8); MPV 7.8 fL (7.6-11.3); RBC Red Blood Cell Count 5.65 M/uL (4.33-5.43)
[2020-09-02 04:41] LABS: Protime INR 0.8
[2020-09-02 04:58] LABS: ALT/SGPT 17 U/L (12-78); AST/SGOT 12 U/L (15-37); Albumin 4.1 g/dL (3.4-5.0); Alkaline Phosphatase 136 U/L (45-117); BUN Blood Urea Nitrogen 16 mg/dL (7-18); Bilirubin Direct < 0.1 mg/dL (0-0.2); Bilirubin Total 0.5 mg/dL (0.2-1.0); Magnesium 2.3 mg/dL (1.8-2.4); NT PRO-BNP 5 pg/mL (<125); Potassium 3.9 mmol/L (3.5-5.1); Sodium Level 134 mmol/L (136-145); Troponin (Emerg Dept Use Only) < 0.02 ng/mL (0.0-0.045)
[2020-09-02 05:00] LABS: Bicarbonate 10 mmol/L (21-32); Glucose Level 412 mg/dL (74-106)
--- NOTE | 2020-09-02 05:00 | EDPHYS ---
Physician Documentation [facility] Name: David Merritt Age: 20 yrs Sex: Male : 2000 Arrival Date: 09/02/2020 Time: 03:44 Bed 6 Private MD: ED Physician Alfonso Pederson HPI: 09/02 04:53 This 20 yrs old Black Male presents to ER via Ambulatory with complaints of Dka. [place]on 04:53 The patient presents to the emergency department with nausea, vomiting, that is [place] continuous. Onset: The symptoms/episode began/occurred yesterday. Possible causes: unknown. The symptoms are aggravated by nothing. The symptoms are alleviated by nothing. The patient or guardian reports hyperglycemia. Associated signs and symptoms: Pertinent positives: None. ketones in urine, nausea, vomiting. nausea vomiting, high glucose. Associated signs and symptoms: The patient has no apparent associated signs or symptoms. Severity of symptoms: At their worst the symptoms were moderate in the emergency department the symptoms are worse mildly. Historical: - Allergies: 04:05 NKA; em - PMHx: 04:05 ADD/ADHD; Anxiety; Depression; Diabetes - IDDM; kidney disease; em - PSHx: 04:05 None; em - Immunization history:: Adult Immunizations up to date. - Social history:: Smoking status: Patient reports the use of cigarette tobacco products, smokes one-half pack cigarettes per day. - Family history:: not pertinent. ROS: 04:53 Constitutional: Negative for fever, chills, and weight loss, Eyes: Negative for injury, [place] pain, redness, and discharge, ENT: Negative for injury, pain, and discharge, Neck: Negative for injury, pain, and swelling, Cardiovascular: Negative for chest pain, palpitations, and edema, Respiratory: Negative for shortness of breath, cough, wheezing, and pleuritic chest pain, Back: Negative for injury and pain, : Negative for injury, bleeding, discharge, and swelling, MS/Extremity: Negative for injury and deformity, Skin: Negative for injury, rash, and discoloration, Neuro: Negative for headache, weakness, numbness, tingling, and seizure, Psych: Negative for depression, anxiety, suicide ideation, homicidal ideation, and hallucinations, Allergy/Immunology: Negative for hives, rash, and allergies, Endocrine: Negative for neck swelling, polydipsia, polyuria, polyphagia, and marked weight changes, Hematologic/Lymphatic: Negative for swollen nodes, abnormal bleeding, and unusual bruising. 04:53 Abdomen/GI: Positive for nausea and vomiting. Exam: 04:53 Constitutional: This is a well developed, well nourished patient who is awake, alert, [place] and in no acute distress. Head/Face: Normocephalic, atraumatic. Eyes: Pupils equal round and reactive to light, extra-ocular motions intact. Lids and lashes normal. Conjunctiva and sclera are non-icteric and not injected. Cornea within normal limits. Periorbital areas with no swelling, redness, or edema. ENT: Nares patent. No nasal discharge, no septal abnormalities noted. Tympanic membranes are normal and external auditory canals are clear. Oropharynx with no redness, swelling, or masses, exudates, or evidence of obstruction, uvula midline. Mucous membranes moist. Neck: Trachea midline, no thyromegaly or masses palpated, and no cervical lymphadenopathy. Supple, full range of motion without nuchal rigidity, or vertebral point tenderness. No Meningismus. Chest/axilla: Normal chest wall appearance and motion. Nontender with no deformity. No lesions are appreciated. Cardiovascular: Regular rate and rhythm with a normal S1 and S2. No gallops, murmurs, or rubs. Normal PMI, no JVD. No pulse deficits. Abdomen/GI: Soft, non-tender, with normal bowel sounds. No distension or tympany. No guarding or rebound. No evidence of tenderness throughout. Back: No spinal tenderness. No costovertebral tenderness. Full range of motion. Male : Normal genitalia with no discharge or lesions. Skin: Warm, dry with normal turgor. Normal color with no rashes, no lesions, and no evidence of cellulitis. MS/ Extremity: Pulses equal, no cyanosis. Neurovascular intact. Full, normal range of motion. Neuro: Awake and alert, GCS 15, oriented to person, place, time, and situation. Cranial nerves II-XII grossly intact. Motor strength 5/5 in all extremities. Sensory grossly intact. Cerebellar exam normal. Normal gait. Psych: Awake, alert, with orientation to person, place and time. Behavior, mood, and affect are within normal limits. 04:53 Respiratory: mild respiratory distress is noted, Respirations: labored breathing, that is mild, Breath sounds: are clear throughout, Respiratory rate: 26 05:33 ECG was reviewed by the Attending Physician. [facility] Vital Signs: 04:03 BP 115 / 81; Pulse 96; Resp 26; Temp 97.8; Pulse Ox 100% on R/A; Weight 60.33 kg; em Height 5 ft. 10 in. (177.80 cm); Pain 0/10; 05:21 BP 114 / 73; Pulse 91; Resp 16; Pulse Ox 100% ; rr5 06:30 BP 108 / 68; Pulse 81; Resp 20; Pulse Ox 99% ; rr5 04:03 Body Mass Index 19.08 (60.33 kg, 177.80 cm) em MDM: 04:45 Patient medically screened. [place] 04:57 Differential diagnosis: Nonspecific abd pain, gastritis, pancreatitis, viral [place] gastroenteritis, gastroenteritis, DKA, hyperglycemia. Differential Diagnosis sepsis. Data reviewed: vital signs, nurses notes, lab test result(s), EKG, radiologic studies, plain films. Data interpreted: adjunct instructor chemistry: rate is 96 beats/min, rhythm is regular, Pulse oximetry: on room air is 100 %. Test interpretation: by ED physician or midlevel provider: ECG, plain radiologic studies. Counseling: I had a detailed discussion with the patient and/or guardian regarding: the historical points, exam findings, and any diagnostic results supporting the discharge/admit diagnosis, lab results, radiology results, the need for further work-up and treatment in the hospital. 09/02 04:03 Order name: Basic Metabolic Panel; Complete Time: 08:00 ea 09/02 04:03 Order name: CBC with Diff; Complete Time: 04:54 ea 09/02 04:03 Order name: LFT's; Complete Time: 08:00 ea 09/02 04:03 Order name: Magnesium; Complete Time: 08:00 ea 09/02 04:03 Order name: NT PRO-BNP; Complete Time: 08:00 09/02 04:03 Order name: PT-INR; Complete Time: 04:54 ea 09/02 04:03 Order name: Troponin (emerg Dept Use Only); Complete Time: 08:00 ea 09/02 04:13 Order name: Glucose, Ancillary Testing; Complete Time: 04:26 EDMS 09/02 04:52 Order name: Blood Culture Adult (2) [facility] 09/02 04:52 Order name: ABG; Complete Time: 08:00 [facility] 09/02 05:09 Order name: Lipase; Complete Time: 08:00 EDWI 09/02 05:19 Order name: COVID-19 : Document "Date of Symptom Onset" if Symptomatic. tt3 09/02 05:19 Order name: CORONAVIRUS EDWI 09/02 05:34 Order name: Urine Dipstick--Ancillary (enter results) 09/02 06:18 Order name: Glucose, Ancillary Testing; Complete Time: 08:00 EDWI 09/02 06:47 Order name: SARS-COV-2 RT PCR; Complete Time: 08:00 EDWI 09/02 07:33 Order name: Glucose, Ancillary Testing; Complete Time: 08:00 EDWI 09/02 08:22 Order name: Glucose, Ancillary Testing EDWI 09/02 08:46 Order name: Basic Metabolic Panel EDWI 09/02 09:23 Order name: Glucose, Ancillary Testing EDWI 09/02 10:23 Order name: Glucose, Ancillary Testing EDWI 09/02 11:21 Order name: Glucose, Ancillary Testing EDWI 09/02 12:22 Order name: Glucose, Ancillary Testing EDWI 09/02 12:49 Order name: Basic Metabolic Panel EDWI 09/02 12:56 Order name: C-Reactive Protein EDWI 09/02 12:56 Order name: Ferritin EDWI 09/02 13:53 Order name: Glucose, Ancillary Testing EDWI 09/02 14:25 Order name: Glucose, Ancillary Testing EDWI 09/02 15:30 Order name: Glucose, Ancillary Testing EDWI 09/02 04:03 Order name: XRAY Chest (1 view) 09/02 04:03 Order name: EKG; Complete Time: 04:04 ea 09/02 04:03 Order name: Cardiac monitoring; Complete Time: 04:22 ea 09/02 04:03 Order name: EKG - Nurse/Tech; Complete Time: 04:22 ea 09/02 04:03 Order name: IV Saline Lock; Complete Time: 04:22 ea 09/02 04:03 Order name: Labs collected and sent; Complete Time: 04:22 ea 09/02 04:03 Order name: O2 Per Protocol; Complete Time: 04:22 ea 09/02 04:03 Order name: O2 Sat Monitoring; Complete Time: 04:22 ea 09/02 08:47 Order name: RAD EDMS 09/02 16:40 Order name: Glucose, Ancillary Testing EDMS 09/02 16:48 Order name: Basic Metabolic Panel EDMS 09/02 17:34 Order name: Glucose, Ancillary Testing EDMS 09/02 18:30 Order name: Glucose, Ancillary Testing EDMS 09/02 20:19 Order name: Glucose, Ancillary Testing EDMS 09/02 20:37 Order name: Basic Metabolic Panel EDMS 09/02 22:27 Order name: Glucose, Ancillary Testing EDMS 09/03 01:04 Order name: Basic Metabolic Panel EDMS 09/03 04:30 Order name: CBC with Automated Diff EDMS 09/03 04:40 Order name: Basic Metabolic Panel EDMS 09/03 04:40 Order name: Phosphorus EDMS 09/03 04:40 Order name: Lipid Profile EDMS 09/03 04:40 Order name: Magnesium EDMS 09/03 08:14 Order name: Glucose, Ancillary Testing EDMS 09/02 05:39 Order name: Urine Dipstick-Ancillary (obtain specimen); Complete Time: 05:39 rr5 EC:33 Rate is 87 beats/min. Rhythm is regular. QRS [place] is Normal. FL interval is normal. QRS [place] interval is normal. QT interval is normal. No Q waves. T waves are Normal. No ST changes noted. Clinical impression: NSR w/ Non-specific ST/T Changes and No evidence of ischemia. Interpreted by me. Reviewed by me. Administered Medications: 04:47 Drug: NS 0.9% 1000 ml Route: IV; Rate: 1 bolus; Site: right forearm; rr5 05:45 Follow up: Response: No adverse reaction; IV Status: Completed infusion; IV Intake: rr5 1000ml 04:48 Drug: Zofran (Ondansetron) 4 mg Route: IVP; Site: right forearm; rr5 05:40 Follow up: Response: No adverse reaction rr5 05:00 Drug: NS 0.9% 1000 ml Route: IV; Rate: 1 bolus; Site: right forearm; rr5 06:00 Follow up: Response: No adverse reaction; IV Status: Completed infusion; IV Intake: rr5 1000ml 05:05 Drug: Pepcid 20 mg Route: IVP; Site: left forearm; rr5 05:47 Follow up: Response: No adverse reaction rr5 05:07 Drug: Rocephin 1 grams Route: IV; Rate: per protocol; Site: left forearm; rr5 06:00 Follow up: Response: No adverse reaction; IV Status: Completed infusion; IV Intake: [id number] 05:10 Drug: Insulin Drip - (Insulin Regular Human 100 units, NS 0.9% 100 ml) {Co-Signature: rr5 walt (Oxana Banks RN).} Route: IV; Rate: 6 units/hr; Site: left forearm; 06:10 Follow up: Response: Blood sugar is lowered; Rate change 3 units/hr rr5 08:21 Follow up: IV Status: Infusion continued upon admission ss 05:18 Not Given (Duplicate Order): NS 0.9% 1000 ml IV at 1 bolus Per protocol; 1000 mL bolus rr5 05:18 Drug: NS 0.9% 1000 ml Route: IV; Rate: 125 ml/hr; Site: left forearm; rr5 06:33 Follow up: Response: No adverse reaction; IV Status: Infusion continued upon admission rr5 05:18 Not Given (Duplicate Order): Zofran (Ondansetron) 4 mg IVP once; over 2 minutes rr5 Disposition: 09/02/20 05:00 Hospitalization ordered by Richie Todd for Inpatient Admission. Preliminary diagnosis are Type 1 diabetes mellitus with ketoacidosis without coma, Vomiting. - Bed requested for [facility] ER HOLD. - Status is Inpatient Admission. ss - Condition is Fair. - Problem is new. - Symptoms have improved. Signatures: Dispatcher [employer] Gabriella Ashraf, RN Alfonso Gresham MD MD cha Munoz, Edgar, RN Ceci Gleason RN RN ss Ricky Santana, MS SQL SERVER DEVELOPER-C MS SQL SERVER DEVELOPER-Cla1 Oxana Banks RN RN ea Roque, Raymond, RN AUDRA rr5 Oxana Banks RN, ea Corrections: (The following items were deleted from the chart) 05:03 05:00 Hospitalization Ordered by Jalen Lay MD for Inpatient Admission. Preliminary la1 diagnosis is Type 1 diabetes mellitus with ketoacidosis without coma; Vomiting. Bed requested for Intensive Care Unit. Status is Inpatient Admission. Condition is Fair. Problem is new. Symptoms have improved. [facility] 05:09 04:52 LIPASE+C.LAB.BRZ ordered. EDMS EDMS 05:31 05:03 09/02/2020 05:00 Hospitalization Ordered by Richie Todd DO for Inpatient dw Admission. Preliminary diagnosis is Type 1 diabetes mellitus with ketoacidosis without coma; Vomiting. Bed requested for Intensive Care Unit. Status is Inpatient Admission. Condition is Fair. Problem is new. Symptoms have improved. la1 09/03 08:50 02/03 05:31 09/02/2020 05:00 Hospitalization Ordered by Richie Todd DO for Inpatient ss Admission. Preliminary diagnosis is Type 1 diabetes mellitus with ketoacidosis without coma; Vomiting. Bed requested for [facility] ER HOLD. Status is Inpatient Admission. Condition is Fair. Problem is new. Symptoms have improved. dw
--- NOTE | 2020-09-02 05:00 | ER ---
Nurse's Notes [facility] Name: David Merritt Age: 20 yrs Sex: Male : 2000 Arrival Date: 09/02/2020 Time: 03:44 Bed 6 Private MD: Diagnosis: Type 1 diabetes mellitus with ketoacidosis without coma;Vomiting Presentation: 09/02 04:01 Ebola Screen: No symptoms or risks identified at this time. Risk Assessment: Do you ea want to hurt yourself or someone else? Patient reports no desire to harm self or others. Onset of symptoms was September 02, 2020. 04:01 Acuity: SHARRI 3 ea 04:03 Chief complaint: Patient states: ran out of insulin today, hx of DKA, reports N/V, does em not know current BGL. Coronavirus screen: Client denies travel out of the [place] in the last 14 days. Initial Sepsis Screen: Does the patient meet any 2 criteria? No. Patient's initial sepsis screen is negative. Does the patient have a suspected source of infection? No. Patient's initial sepsis screen is negative. 04:03 Method Of Arrival: Ambulatory em 07:10 Acuity: SHARRI 2 rr5 Historical: - Allergies: 04:05 NKA; em - PMHx: 04:05 ADD/ADHD; Anxiety; Depression; Diabetes - IDDM; kidney disease; em - PSHx: 04:05 None; em - Immunization history:: Adult Immunizations up to date. - Social history:: Smoking status: Patient reports the use of cigarette tobacco products, smokes one-half pack cigarettes per day. - Family history:: not pertinent. Screenin:00 Abuse screen: Denies threats or abuse. Nutritional screening: No deficits noted. ea Tuberculosis screening: No symptoms or risk factors identified. Fall Risk IV access (20 points). Assessment: 04:01 General: Appears in no apparent distress. Behavior is calm, cooperative, appropriate ea for age. Pain: Denies pain. Neuro: Level of Consciousness is awake, alert, obeys commands, Oriented to person, place, time, situation. Cardiovascular: Patient's skin is warm and dry. Respiratory: Airway is patent Respiratory effort is even, unlabored, Respiratory pattern is regular, symmetrical. Derm: Skin is pink, warm \T\ dry. 05:15 Reassessment: Patient appears in no apparent distress at this time. Patient is alert, rr5 oriented x 3, equal unlabored respirations, skin warm/dry/pink. hospitalist at bedside examining the patient. 06:18 Reassessment: Patient appears in no apparent distress at this time. Patient is alert, rr5 oriented x 3, equal unlabored respirations, skin warm/dry/pink. BS 260 mg/Dl, insulin drip decreased to 3 units/Hr per protocol in [facility]. Vital Signs: 04:03 BP 115 / 81; Pulse 96; Resp 26; Temp 97.8; Pulse Ox 100% on R/A; Weight 60.33 kg; em Height 5 ft. 10 in. (177.80 cm); Pain 0/10; 05:21 BP 114 / 73; Pulse 91; Resp 16; Pulse Ox 100% ; rr5 06:30 BP 108 / 68; Pulse 81; Resp 20; Pulse Ox 99% ; rr5 04:03 Body Mass Index 19.08 (60.33 kg, 177.80 cm) em ED Course: 03:44 Patient arrived in ED. cl3 04:00 Arm band placed on right wrist. Patient placed in an exam room, on a stretcher, on ea pulse oximetry. 04:00 Inserted saline lock: 20 gauge in right forearm, using aseptic technique. Blood em collected. 04:01 Triage completed. ea 04:01 Patient has correct armband on for positive identification. Bed in low position. Call ea light in reach. 04:45 Alfonso Pederson MD is Attending Physician. [place] 04:50 EKG done, by ED staff, reviewed by Alfonso Pederson MD. rr5 04:58 Jalen Lay MD is Hospitalizing Provider. [place] 05:03 Richie Todd DO is Hospitalizing Provider. la1 05:17 Jalen Espinoza, RN is Primary Nurse. rr5 05:30 Urine collected: clean catch specimen, clear. rr5 05:36 No provider procedures requiring assistance completed. Patient admitted, IV remains in rr5 place. intact, No redness/swelling at site. 05:37 COVID swab sent to lab. rr5 07:16 Urine Dipstick--Ancillary (enter results) Sent. hb Administered Medications: 04:47 Drug: NS 0.9% 1000 ml Route: IV; Rate: 1 bolus; Site: right forearm; rr5 05:45 Follow up: Response: No adverse reaction; IV Status: Completed infusion; IV Intake: rr5 1000ml 04:48 Drug: Zofran (Ondansetron) 4 mg Route: IVP; Site: right forearm; rr5 05:40 Follow up: Response: No adverse reaction rr5 05:00 Drug: NS 0.9% 1000 ml Route: IV; Rate: 1 bolus; Site: right forearm; rr5 06:00 Follow up: Response: No adverse reaction; IV Status: Completed infusion; IV Intake: rr5 1000ml 05:05 Drug: Pepcid 20 mg Route: IVP; Site: left forearm; rr5 05:47 Follow up: Response: No adverse reaction rr5 05:07 Drug: Rocephin 1 grams Route: IV; Rate: per protocol; Site: left forearm; rr5 06:00 Follow up: Response: No adverse reaction; IV Status: Completed infusion; IV Intake: [id number] 05:10 Drug: Insulin Drip - (Insulin Regular Human 100 units, NS 0.9% 100 ml) {Co-Signature: rr5 ea (Oxana Banks RN).} Route: IV; Rate: 6 units/hr; Site: left forearm; 06:10 Follow up: Response: Blood sugar is lowered; Rate change 3 units/hr rr5 08:21 Follow up: IV Status: Infusion continued upon admission ss 05:18 Not Given (Duplicate Order): NS 0.9% 1000 ml IV at 1 bolus Per protocol; 1000 mL bolus rr5 05:18 Drug: NS 0.9% 1000 ml Route: IV; Rate: 125 ml/hr; Site: left forearm; rr5 06:33 Follow up: Response: No adverse reaction; IV Status: Infusion continued upon admission rr5 05:18 Not Given (Duplicate Order): Zofran (Ondansetron) 4 mg IVP once; over 2 minutes rr5 Intake: 05:45 IV: 1000ml; Total: 1000ml. rr5 06:00 IV: 10ml; Total: 1010ml. rr5 06:00 IV: 1000ml; Total: 2010ml. rr5 Output: 05:38 Urine: 700ml (Voided); Total: 700ml. rr5 Outcome: 05:00 Decision to Hospitalize by Provider. [place] 07:00 Admitted to ER Hold. Please see [facility] for further documentation. 07:00 Condition: stable 07:00 Instructed on the need for admit. 09/03 08:50 Patient left the ED. Signatures: Alfonso Pederson MD MD cha Munoz, Edgar, RN RN Ceci Hogan RN RN Ricky Santana, DEPUTY DIRECTOR OF FINANCE-C DEPUTY DIRECTOR OF FINANCE-Cla1 Va Garcia RN RN hb Antunez, Elena, RN RN ea Roque, Raymond, RN RN rr5 Naomi Monsivais cl3 Oxana Banks RN, ea
[2020-09-02] MEDS ORDERED: ONDANSETRON 4 MG/2 ML VIAL ONE (05:03)
[2020-09-02] MEDS ORDERED: CEFTRIAXONE/SWI 1gm 1 GM/10 ML SYR ONE ×2 (05:14→05:25)
[2020-09-02] MEDS ORDERED: NA CHLORIDE 0.9% 100 ML ONE (05:14)
[2020-09-02] MEDS ORDERED: INSULIN -REGULAR HUMAN 50 UNIT/0.5 ML ML ONE ×2 (05:14→22:36)
[2020-09-02] MEDS ORDERED: NA CHLORIDE 0.9% 2,000 ML ONE (05:14)
[2020-09-02] MEDS ORDERED: FAMOTIDINE 20 MG/2 ML VIAL IV ONE ×2 (05:14→22:37)
[2020-09-02 05:15] LABS: Lipase 47 U/L (73-393)
[2020-09-02 05:28] LABS: Arterial Blood Carboxyhemoglob 1.5 % (0-1.5); Blood Gas Oxyhemoglobin 94.9 % (94-97); Blood O2 Saturation 97.6 % (92-98.5)
--- NOTE | 2020-09-02 05:35 | P.HP ---
Certification for Inpatient Patient admitted to: Inpatient With expected LOS: >2 Midnights Patient will require the following post-hospital care: None Practitioner: I am a practitioner with admitting privileges, knowledge of patient current condition, hospital course, and medical plan of care. 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 Patient reports that he gets his insulin for free. Patient was evaluated in the emergency department found to be hyperglycemic with blood sugar around 466 anion gap 25. ABG shows pH 7.159. Patient started on insulin drip in the emergency department given 2 L normal saline bolus. Will admit to the ICU for further evaluation and management. - Past Medical/Surgical History Diabetic: Yes -: Diabetes type 1 insulin-dependent -: Depression with anxiety -: THC use -: ADD/ADHD -: kidney disease Psychosocial/ Personal History: Patient lives with his mother but at times with his brother. He is single. Has no children. 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 - Family History Family History: Reviewed- Non-Contributory - Social History Smoking Status: Current every day smoker Counseled patient to stop smoking for: less than 10 minutes Alcohol use: No CD- Drugs: Yes Caffeine use: Yes Place of Residence: Home <Ricky Santana - Last Filed: 09/02/20 05:32> Date of Service: 09/02/20 Home medications list reviewed: Yes <Richie Todd - Last Filed: 09/02/20 09:37> Allergies No Known Drug Allergies Allergy (Verified 01/02/19 04:53) Unknown Home Medications: Insulin Regular, Human [Novolin R Flexpen] 100 unit SQ SEECOM #1 insuln.pen 11/26/19 Insulin Degludec [Tresiba Flextouch U-100] 40 unit SQ DAILY #1 packet 07/20/20 Venlafaxine HCl *Xr* [Effexor XR*] 37.5 mg PO DAILY #30 cap 07/20/20 Review of Systems 10-point ROS is otherwise unremarkable General: Weakness, Malaise <Ricky Santana - Last Filed: 09/02/20 05:32> Physical Examination - Physical Exam General: Alert, In no apparent distress HEENT: Atraumatic, PERRLA, Other (Mucous membranes dry), EOMI, Sclerae nonicteric Neck: Supple, 2+ carotid pulse no bruit, No LAD, Without JVD or thyroid abnormality Respiratory: Clear to auscultation bilaterally, Normal air movement Cardiovascular: Regular rate/rhythm, Normal S1 S2 Gastrointestinal: Normal bowel sounds, No tenderness Musculoskeletal: No tenderness Integumentary: No rashes Neurological: Normal gait, Normal speech, Normal strength at 5/5 x4 extr, Normal tone, Normal affect Lymphatics: No axilla or inguinal lymphadenopathy - Studies Laboratory Data (last 24 hrs) 09/02/20 04:00: Lipase Cancelled 09/02/20 04:00: PT 9.4 L, INR 0.80 09/02/20 04:00: WBC 9.90, Hgb 15.8, Hct 48.3, Plt Count 343 09/02/20 04:00: Sodium 134 L, Potassium 3.9, BUN 16, Creatinine 1.39 H, Glucose 412 H*, Magnesium 2.3 D, Total Bilirubin 0.5, AST 12 L, ALT 17, Alkaline Phosphatase 136 H, Lipase 47 L <Ricky Santana - Last Filed: 09/02/20 05:32> - Studies Laboratory Data (last 24 hrs) 09/02/20 04:00: Lipase Cancelled 09/02/20 04:00: PT 9.4 L, INR 0.80 09/02/20 04:00: WBC 9.90, Hgb 15.8, Hct 48.3, Plt Count 343 09/02/20 04:00: Sodium 134 L, Potassium 3.9, BUN 16, Creatinine 1.39 H, Glucose 412 H*, Magnesium 2.3 D, Total Bilirubin 0.5, AST 12 L, ALT 17, Alkaline Phosphatase 136 H, Lipase 47 L <Richie Todd - Last Filed: 09/02/20 09:37> Assessment and Plan - Plan Assessment Diabetes mellitus type 1 with ketoacidosis without coma Plan Diabetes mellitus type 1 with ketoacidosis without coma: Admit to the ICU, continue with aggressive IV hydration, insulin drip, q.1h Accu-Cheks, acute for BMP these and tell anion gap is closed, sugar less than 200, patient tolerating p.o.. Then transitioned long-acting insulin. Blood cultures obtained in the emergency department, continue to follow. No sign of infection at this time. Continue empiric antibiotics with Rocephin. DVT prophylaxis Lovenox 40 mg subcutaneous once daily. Discharge Plan: Home Plan to discharge in: 48 Hours - Advance Directives Does patient have a Living Will: No Does patient have a Durable POA for Healthcare: No - Code Status/Comfort Care Code Status Assessed: Yes (Full code) Critical Care: No Time Spent Managing Pts Care (In Minutes): 55 <Ricky Santana - Last Filed: 09/02/20 05:32> - Plan Case discussed in detail with nurse practitioner. Agree with plan of care. Continue DKA protocol. Please see notes for details. <Richie Todd - Last Filed: 09/02/20 09:37>
[2020-09-02] MEDS ORDERED: ONDANSETRON 4 MG/2 ML VIAL IV PRN (07:24)
[2020-09-02] MEDS ORDERED: INSULIN -REGULAR HUMAN 100 UNIT in NA CHLORIDE 0.9% 100 ML IV SCH (07:24)
[2020-09-02] MEDS: NACHLORIDE 0.45% 1,000 ML with POTASSIUM CL 20 MEQ IV SCH ×4 (08:20→19:33)
[2020-09-02 08:36] VITALS: BMI 19.1
[2020-09-02 08:40] LABS: BUN Blood Urea Nitrogen 13 mg/dL (7-18); Glucose Level 181 mg/dL (74-106); Sodium Level 142 mmol/L (136-145)
[2020-09-02 08:46] LABS: Bicarbonate 11 mmol/L (21-32)
--- NOTE | 2020-09-02 08:47 | RAD REPORT ---
EXAM DESCRIPTION: RAD - Chest Single View - 09/02/2020 7:07 am CLINICAL HISTORY: CHEST PAIN Chest pain. COMPARISON: Chest Single View dated 11/24/2019; Abdomen 1 View (KUB) dated 06/07/2018; Chest Single Vi ew dated 06/07/2018; Chest Single View dated 07/28/2017 FINDINGS: Portable technique limits examination quality. The lungs are grossly clear. The heart is normal in size. No displaced fractures. IMPRESSION: No acute intrathoracic process suspected.
[2020-09-02] MEDS ORDERED: ENOXAPARIN 40 MG/0.4 ML SQ SCH (09:00)
[2020-09-02] MEDS ORDERED: ENOXAPARIN 40 MG/0.4 ML SQ ONE (09:05)
[2020-09-02] MEDS: D5.45NS W/KCL 20MEQ 1,000 ML IV SCH ×2 (09:31→20:44)
[2020-09-02] MEDS ORDERED: D5.45NS W/KCL 20MEQ 1,000 ML IV ONE (09:38)
--- NOTE | 2020-09-02 09:41 | P.PN ---
Subjective Date of Service: 09/02/20 Primary Care Provider: None Chief Complaint: DKA Subjective: Other (Overall stable. Patient reports some nasal congestion.) Physical Examination - Vital Signs Temperature: 98.2 F Blood Pressure: 101/57 Pulse: 77 Respirations: 18 Pulse Ox (%): 100 - Physical Exam General: Alert, In no apparent distress, Cooperative HEENT: Atraumatic, Other (Some nasal congestion) Neck: Supple Respiratory: Clear to auscultation bilaterally, Normal air movement Cardiovascular: Normal pulses, Regular rate/rhythm Gastrointestinal: No masses, No rebound, No guarding Neurological: Normal speech, Normal strength at 5/5 x4 extr, Normal tone, Normal affect - Studies Laboratory Data (last 24 hrs) 09/02/20 04:00: Lipase Cancelled 09/02/20 04:00: PT 9.4 L, INR 0.80 09/02/20 04:00: WBC 9.90, Hgb 15.8, Hct 48.3, Plt Count 343 09/02/20 04:00: Sodium 134 L, Potassium 3.9, BUN 16, Creatinine 1.39 H, Glucose 412 H*, Magnesium 2.3 D, Total Bilirubin 0.5, AST 12 L, ALT 17, Alkaline Phos phatase 136 H, Lipase 47 L Medications List Reviewed: Yes Assessment & Plan Discharge Plan: Home Plan to discharge in: 48 Hours Physician Review Additional Text: Impression: Nausea and vomiting secondary to recurrent diabetic ketoacidosis without coma related to noncompliance Nasal congestion suspect allergic rhinitis Depression with anxiety Plan: Nausea and vomiting secondary to recurrent diabetic ketoacidosis without coma related to noncompliance: Continue with DKA protocol. Will monitor glucose and BMP. Continue to adjust IV fluids and insulin drip. Will check A1c. Once gap as close then can transition to his regular regimen of basal insulin. Patient reports noncompliance. Compliance addressed in detail. Will educate more on diabetes and DKA. Anticipate improvement over the next 48 hr. Nasal congestion suspect allergic rhinitis: Will provide Flonase and nasal saline spray. Depression with anxiety: Once able to take oral intake then will restart home medication. Time Spent Managing Pts Care (In Minutes): 55
--- NOTE | 2020-09-02 12:16 | EKG ---
Test Date: 2020-09-02 Test Time: 04:17:55 Side Laster Tack: HAM MEASUREMENT RESULTS: Intervals: Rate: 86 FL: 144 QRSD: 78 QT: 380 QTc: 454 Notrees: P: 81 FL: 144 QRS: 74 T: 58 INTERPRETIVE STATEMENTS: Normal sinus rhythm Normal ECG Compared to ECG 01/02/2019 01:00:57 Atrial abnormality no longer present Electronically Signed On 09-02-20 12:15:09 [employer] by Wilfred Dowling
[2020-09-02 12:48] LABS: BUN Blood Urea Nitrogen 11 mg/dL (7-18); Bicarbonate 15 mmol/L (21-32); Glucose Level 212 mg/dL (74-106); Potassium 4.3 mmol/L (3.5-5.1); Sodium Level 141 mmol/L (136-145)
[2020-09-02 12:55] LABS: C-Reactive Protein 4.49 mg/L (<3.00)
[2020-09-02 16:47] LABS: BUN Blood Urea Nitrogen 12 mg/dL (7-18); Bicarbonate 19 mmol/L (21-32); Glucose Level 167 mg/dL (74-106); Sodium Level 140 mmol/L (136-145)
[2020-09-02] MEDS ORDERED: IVERMECTIN 3 MG TABLET PO ONE (17:00)
[2020-09-02] MEDS ORDERED: INSULIN GLARGINE 100 UNITS/ML SQ ONE ×2 (18:00→18:44)
[2020-09-02 20:35] LABS: BUN Blood Urea Nitrogen 12 mg/dL (7-18); Bicarbonate 17 mmol/L (21-32); Glucose Level 242 mg/dL (74-106); Potassium 3.8 mmol/L (3.5-5.1); Sodium Level 140 mmol/L (136-145)
[2020-09-02] MEDS ORDERED: MELATONIN 5 MG TABLET PO SCH (21:00)
[2020-09-02] MEDS ORDERED: FLUTICASONE 50MCG NASAL SPRAY NAS SCH (21:00)
[2020-09-02] MEDS ORDERED: INSULIN -REGULAR HUMAN 50 UNIT/0.5 ML ML SQ SCH (21:00)
[2020-09-02] MEDS ORDERED: FAMOTIDINE 20 MG/2 ML VIAL IV SCH (21:00)
[2020-09-03 01:03] LABS: BUN Blood Urea Nitrogen 10 mg/dL (7-18); Bicarbonate 18 mmol/L (21-32); Glucose Level 255 mg/dL (74-106); Potassium 3.8 mmol/L (3.5-5.1); Sodium Level 138 mmol/L (136-145)
[2020-09-03] MEDS ORDERED: NACHLORIDE 0.45% 1,000 ML IV ONE (02:55)
[2020-09-03] MEDS ORDERED: NACHLORIDE 0.45% 1,000 ML IV SCH (03:00)
[2020-09-03 04:21] LABS: Absolute Lymphocytes (CBC) 2.4 K/uL (0.7-4.9); Basophils % 0.7 % (0-1.3); Hematocrit 38.5 % (39.6-49.0); Lymphocytes % 34.8 % (15.3-44.8); RBC Red Blood Cell Count 4.63 M/uL (4.33-5.43)
[2020-09-03 04:37] LABS: BUN Blood Urea Nitrogen 12 mg/dL (7-18); Bicarbonate 20 mmol/L (21-32); Glucose Level 148 mg/dL (74-106); HDL Cholesterol 41 mg/dL (40-60); LDL Cholesterol, Calculated 97 (<130); Phosphorus 2.2 mg/dL (2.5-4.9); Sodium Level 140 mmol/L (136-145)
[2020-09-03 04:40] LABS: Magnesium 1.9 mg/dL (1.8-2.4); Potassium 3.4 mmol/L (3.5-5.1)
[2020-09-03] MEDS ORDERED: POTASSIUM CL SA 10 MEQ TAB PO ONE ×2 (06:00→07:08)
[2020-09-03] MEDS ORDERED: CEFTRIAXONE/SWI 1gm 1 GM/10 ML SYR IV SCH (06:00)
[2020-09-03] MEDS ORDERED: CEFTRIAXONE/SWI 1gm 1 GM/10 ML SYR ONE (07:08)
--- NOTE | 2020-09-03 07:27 | P.DS ---
Admission Date: 09/02/20 Discharge Date: 09/03/20 Primary Care Provider: None Disposition: ROUTINE DISCHARGE Discharge Condition: GOOD Reason for Admission: DKA Consultations: none Procedures: COVID: Positive CXR: FINDINGS: Portable technique limits examination quality. The lungs are grossly clear. The heart is normal in size. No displaced fractures. IMPRESSION: No acute intrathoracic process suspected. Medical Problem List: Nausea and vomiting secondary to recurrent diabetic ketoacidosis without coma related to noncompliance Nasal congestion suspect allergic rhinitis Depression with anxiety COVID 19 positive, asymptomatic Brief History of Present Illness: 20-year-old male presented to the emergency room with nausea and vomiting. Patient with history of type 1 diabetes. Patient ran out of medication. Patient found to have DKA. Patient with history of DKA in the past. Patient was admitted for further treatment. Insulin drip and DKA protocol initiated. Hospital Course: Patient presented with nausea, vomiting secondary to recurrent diabetic ketoacidosis without coma. This was related to noncompliance. Patient had ran out of medication was not able to get his meds. Patient was admitted for further treatment. DKA protocol and insulin drip was initiated. Patient improved quickly. DKA resolved. At discharge blood sugars better controlled. At discharge compliance with medication addressed in detail. Patient understands. Patient will be able to get his medications. At discharge patient will continue with Tresiba 40 units subcu daily. Patient may also continue with flex pen Humalog sliding scale as directed. Recommend to monitor blood sugars at least twice daily for the next week. Recommend to maintain blood sugar less than 140 fasting and less than 200 after meals. If blood sugars remain above 200 he may increase Tresiba by 1-2 units for better control. Compliance with medication addressed in detail. Recommend follow up with PCP in 1 week to follow up this hospitalization and for better diabetic control. Patient would benefit with endocrinology evaluation as an outpatient to further assess. Patient had some nasal congestion. Patient was started on Flonase. At discharge patient may continue with Flonase 1 spray per nostril twice a day. Patient was found to be positive for COVID 19. Chest x-ray unremarkable. Patient appears to be asymptomatic. At discharge will recommend to continue zinc 220 mg daily, Vitamin C 500 mg 3 times a day, vitamin-D 2000 units daily, thiamine 100 mg 1 pill twice daily and melatonin 5 mg at bedtime for at least 1 month. Patient will need a continue with CDC guidelines on COVID 19 isolation. Patient will need to isolate for at least 10 days. Recommend to continue with face mask use, social distancing, and hand washing. Education on COVID 19 will be provided. Patient with depression with anxiety. At discharge patient may continue with his medication of Effexor XR 37.5 mg daily. Recommend follow up with his PCP or psychiatry to further monitor and adjust medication. Vital Signs/Physical Exam: Temp Pulse Resp BP Pulse Ox 98.4 F 65 18 97/63 97 09/03/20 04:00 09/03/20 06:00 09/03/20 06:00 09/03/20 06:00 09/03/20 06:00 General: Alert, In no apparent distress, Oriented x3, Cooperative HEENT: Atraumatic Neck: Supple Respiratory: Other (No respiratory distress noted. Patient stable.) Cardiovascular: Normal pulses, Regular rate/rhythm Gastrointestinal: Normal bowel sounds, No tenderness, No masses, No rebound, No guarding Musculoskeletal: No erythema, No tenderness, No warmth Integumentary: No tenderness/swelling Neurological: Normal speech, Normal strength at 5/5 x4 extr, Normal tone, Normal affect Laboratory Data at Discharge: WBC 6.90 K/uL (4.3-10.9) D 09/03/20 04:00 Hgb 13.0 g/dL (13.6-17.9) L D 09/03/20 04:00 Hct 38.5 % (39.6-49.0) L D 09/03/20 04:00 Plt Count 249 K/uL (152-406) D 09/03/20 04:00 PT 9.4 SECONDS (9.5-12.5) L 09/02/20 04:00 INR 0.80 09/02/20 04:00 Sodium 140 mmol/L (136-145) 09/03/20 04:00 Potassium 3.4 mmol/L (3.5-5.1) L 09/03/20 04:00 BUN 12 mg/dL (7-18) 09/03/20 04:00 Creatinine 1.10 mg/dL (0.55-1.3) 09/03/20 04:00 Glucose 148 mg/dL (74-106) H 09/03/20 04:00 Phosphorus Cancelled 09/03/20 05:00 Magnesium Cancelled 09/03/20 05:00 Total Bilirubin 0.5 mg/dL (0.2-1.0) 09/02/20 04:00 AST 12 U/L (15-37) L 09/02/20 04:00 ALT 17 U/L (12-78) 09/02/20 04:00 Alkaline Phosphatase 136 U/L (45-117) H 09/02/20 04:00 Triglycerides Cancelled 09/03/20 05:00 Cholesterol Cancelled 09/03/20 05:00 HDL Cholesterol Cancelled 09/03/20 05:00 Cholesterol/HDL Ratio Cancelled 09/03/20 05:00 Lipase 47 U/L (73-393) L 09/02/20 04:00 Lipase Cancelled 09/02/20 04:00 Home Medications: Insulin Regular, Human [Novolin R Flexpen] 100 unit SQ SEECOM #1 insuln.pen 11/26/19 Insulin Degludec [Tresiba Flextouch U-100] 40 unit SQ DAILY #1 packet 07/20/20 Venlafaxine HCl *Xr* [Effexor XR*] 37.5 mg PO DAILY #30 cap 07/20/20 Ascorbate Calcium [Vitamin C] 500 mg PO TID #90 tablet 09/03/20 Cholecalciferol (Vitamin D3) [Vitamin D 1000 Iu Tab] 2,000 unit PO DAILY #60 tab 09/03/20 Fluticasone [Flonase 50MCG Nasal [place]*] 1 sprays KENNEY BID #1 btl 09/03/20 Melatonin 5 mg PO BEDTIME #30 tablet 09/03/20 Thiamine HCl 100 mg PO BID #60 tablet 09/03/20 Zinc Sulfate [Zinc Sulfate*] 220 mg PO DAILY #30 cap 09/03/20 New Medications: Fluticasone [Flonase 50MCG Nasal [place]*] 1 sprays KENNEY BID #1 btl Melatonin 5 mg PO BEDTIME #30 tablet Thiamine HCl 100 mg PO BID #60 tablet Ascorbate Calcium [Vitamin C] 500 mg PO TID #90 tablet Cholecalciferol (Vitamin D3) [Vitamin D 1000 Iu Tab] 2,000 unit PO DAILY #60 tab Zinc Sulfate [Zinc Sulfate*] 220 mg PO DAILY #30 cap Physician Discharge Instructions: Follow up with PCP in 1 week to follow up this hospitalization. Patient presented with nausea, vomiting secondary to recurrent diabetic ketoacidosis without coma. This was related to noncompliance. Patient had ran out of medication was not able to get his meds. Patient was admitted for further treatment. DKA protocol and insulin drip was initiated. Patient improved quickly. DKA resolved. At discharge blood sugars better controlled. At discharge compliance with medication addressed in detail. Patient understands. Patient will be able to get his medications. At discharge patient will continue with Tresiba 40 units subcu daily. Patient may also continue with flex pen Humalog sliding scale as directed. Recommend to monitor blood sugars at least twice daily for the next week. Recommend to maintain blood sugar less than 140 fasting and less than 200 after meals. If blood sugars remain above 200 he may increase Tresiba by 1-2 units for better control. Compliance with medication addressed in detail. Recommend follow up with PCP in 1 week to follo w up this hospitalization and for better diabetic control. Patient would benefit with endocrinology evaluation as an outpatient to further assess. Patient had some nasal congestion. Patient was started on Flonase. At discharge patient may continue with Flonase 1 spray per nostril twice a day. Patient was found to be positive for COVID 19. Chest x-ray unremarkable. Patient appears to be asymptomatic. At discharge will recommend to continue zinc 220 mg daily, Vitamin C 500 mg 3 times a day, vitamin-D 2000 units daily, thiamine 100 mg 1 pill twice daily and melatonin 5 mg at bedtime for at least 1 month. Patient will need a continue with CDC guidelines on COVID 19 isolation. Patient will need to isolate for at least 10 days. Recommend to continue with face mask use, social distancing, and hand washing. Education on COVID 19 will be provided. Patient with depression with anxiety. At discharge patient may continue with his medication of Effexor XR 37.5 mg daily. Recommend follow up with his PCP or psychiatry to further monitor and adjust medication. Diet: ADA Activity: Ad jesus manuel Followup: NONE,NONE [Primary Care Provider] - Time spent managing pt's care (in minutes): 55
[2020-09-03 08:44] VITALS: BP 151/90; TEMP 98
[2020-09-03] MEDS ORDERED: ZINC SULFATE 220 MG CAP PO SCH (09:00)
[2020-09-03] MEDS ORDERED: FOLIC ACID 1 MG in NA CHLORIDE 0.9% 50 ML IV SCH (09:00)
[2020-09-03] MEDS ORDERED: THIAMINE 200 MG/2 ML INJ IVP SCH (09:00)
[2020-09-03 09:06] VITALS: O2SAT 99
== END 2020-09-03 08:50 | disposition home or self-care (01) | DRG 637 ==
LOC: ER 03:44 → ERHOLD 05:31
PROVIDERS: ADMIT Family Medicine; ATTEND Family Medicine
DX: E10.10 Type 1 diabetes mellitus with ketoacidosis without coma (principal); U07.1 COVID-19; F41.8 Other specified anxiety disorders; J30.9 Allergic rhinitis, unspecified; F17.210 Nicotine dependence, cigarettes, uncomplicated; Z91.14 Patient's other noncompliance with medication regimen; Z79.4 Long term (current) use of insulin; Z79.899 Other long term (current) drug therapy
CPT/HCPCS: 36415; 71045; 80048; 80061; 80076; 82728; 82805; 82947; 83690; 83735; 83880; 84100; 84484; 85025; 85610; 86140; 87040; 93005; 99285; J0696; J1650; J1815; J2405; J3480; J7030; U0003

== ENCOUNTER 2021-07-28 08:23 | Observation (INO) | payer SELFPAY ==
[2021-07-28 09:12] LABS: Urine Blood Negative (Negative); Urine Glucose 2+ (Negative); Urine Protein Negative (Negative); Urine Specific Gravity >=1.030 (1.005-1.030)
[2021-07-28] MEDS ORDERED: NA CHLORIDE 0.9% 1,000 ML ONE (09:30)
[2021-07-28] MEDS ORDERED: ONDANSETRON 4 MG/2 ML VIAL ONE ×2 (09:30→17:09)
[2021-07-28 09:34] LABS: Absolute Lymphocytes (CBC) 2.5 K/uL (0.7-4.9); Hematocrit 49.6 % (39.6-49.0); MPV 7.7 fL (7.6-11.3); RBC Red Blood Cell Count 5.93 M/uL (4.33-5.43)
[2021-07-28 09:37] LABS: Urine Bacteria NONE SEEN /HPF (NONE SEEN); Urine RBC <5 /HPF (NONE SEEN); Urine Yeast FEW (NONE SEEN)
[2021-07-28 09:38] LABS: Urine Sperm PRESENT (NONE SEEN)
[2021-07-28 09:54] LABS: ALT/SGPT 24 U/L (12-78); AST/SGOT 18 U/L (15-37); Albumin 4.4 g/dL (3.4-5.0); Alkaline Phosphatase 111 U/L (45-117); BUN Blood Urea Nitrogen 18 mg/dL (7-18); Bilirubin Direct 0.1 mg/dL (0-0.2); Bilirubin Total 0.5 mg/dL (0.2-1.0); Glucose Level 369 mg/dL (74-106); Lipase 57 U/L (73-393); Magnesium 2.2 mg/dL (1.8-2.4); Potassium 4.4 mmol/L (3.5-5.1); Sodium Level 135 mmol/L (136-145)
[2021-07-28 09:57] LABS: Bicarbonate 10 mmol/L (21-32)
[2021-07-28] MEDS ORDERED: INSULIN -REGULAR HUMAN 100 UNIT in NA CHLORIDE 0.9% 100 ML IV SCH ×2 (11:00→15:15)
[2021-07-28] MEDS ORDERED: NA CHLORIDE 0.9% 2,000 ML ONE (11:01)
[2021-07-28] MEDS ORDERED: INSULIN -REGULAR HUMAN 50 UNIT/0.5 ML ML ONE (11:01)
--- NOTE | 2021-07-28 14:04 | ER ---
Nurse's Notes [facility] Name: David Merritt Age: 20 yrs Sex: Male : 2000 Arrival Date: 07/28/2021 Time: 08:23 Bed 3 Private MD: Diagnosis: Diabetic ketoacidosis Presentation: 07/28 08:47 Chief complaint: Patient states: has not taken insulin x 3 weeks, due to insure. NV, vg1 shortness of breath, fatigue and dry mouth started today. States normal BS range is '180-270'. BS taken in triage, result of 373. Coronavirus screen: Vaccine status: Patient reports being unvaccinated. Client denies travel out of the [place] in the last 14 days. Ebola Screen: Patient negative for fever greater than or equal to 101.5 degrees Fahrenheit, and additional compatible Ebola Virus Disease symptoms. Initial Sepsis Screen: Does the patient meet any 2 criteria? No. Patient's initial sepsis screen is negative. Does the patient have a suspected source of infection? No. Patient's initial sepsis screen is negative. Risk Assessment: Do you want to hurt yourself or someone else? Patient reports no desire to harm self or others. Onset of symptoms was July 28, 2021. 08:47 Method Of Arrival: Ambulatory vg1 08:47 Acuity: SHARRI 3 vg1 Triage Assessment: 08:51 General: Appears in no apparent distress. uncomfortable, Behavior is calm, cooperative. vg1 Pain: Denies pain. 08:51 Neuro: Level of Consciousness is awake, alert, obeys commands, Oriented to person, vg1 place, time, situation. Historical: - Allergies: 08:51 NKA; vg1 - Home Meds: 08:51 Novolin R Sub-Q [Active]; vg1 - PMHx: 08:51 ADD/ADHD; Anxiety; Depression; Diabetes - IDDM; kidney disease; vg1 - PSHx: 08:51 None; vg1 - Immunization history:: Client reports having NOT received the Covid vaccine. - Social history:: Smoking status: Reported history of juuling and/or vaping. Screenin:32 Abuse screen: Denies threats or abuse. Denies injuries from another. Nutritional jl7 screening: No deficits noted. Tuberculosis screening: No symptoms or risk factors identified. Fall Risk IV access (20 points). Total Butterfield Fall Scale indicates No Risk (0-24 pts). Assessment: 09:32 General: Appears in no apparent distress. uncomfortable, Behavior is calm, cooperative, jl7 appropriate for age. Pain: Denies pain. Neuro: Level of Consciousness is awake, alert, obeys commands, Oriented to person, place, time, situation. Cardiovascular: Patient's skin is warm and dry. Respiratory: Airway is patent Respiratory effort is even, unlabored, Respiratory pattern is regular, symmetrical. Derm: Skin is pink, warm \T\ dry. 11:13 Reassessment: Patient and/or family updated on plan of care and expected duration. Pain jh6 level reassessed. Patient is alert, oriented x 3, equal unlabored respirations, skin warm/dry/pink. General: Appears in no apparent distress. comfortable, Behavior is calm, cooperative, appropriate for age. Neuro: Level of Consciousness is awake, alert, obeys commands, Oriented to person, place, time, situation. Cardiovascular: No deficits noted. Respiratory: No deficits noted. Airway Respiratory effort is even, unlabored, Respiratory pattern is regular, symmetrical. Derm: Skin is pink, warm \T\ dry. 12:30 Reassessment: Patient and/or family updated on plan of care and expected duration. Pain jh6 level reassessed. Patient is alert, oriented x 3, equal unlabored respirations, skin warm/dry/pink. pt states that he would like to go home today. states that he has to be back at work in the am. pt is willing to start insulin drip and receive fluids. Patient denies pain at this time. 13:30 Reassessment: No changes from previously documented assessment. Patient is alert, jh6 oriented x 3, equal unlabored respirations, skin warm/dry/pink. 14:10 Reassessment: Patient and/or family updated on plan of care and expected duration. Pain jh6 level reassessed. Patient is alert, oriented x 3, equal unlabored respirations, skin warm/dry/pink. Insulin drip stopped per protocol for blood sugar of 147. pt states that he is no longer nauseated and would like to try fluids. pt still expressing that he would like to leave. advised pt that i would call the admiting md and we can try ice to start po. Patient denies pain at this time. Vital Signs: 08:47 BP 117 / 71; Pulse 102; Resp 20; Temp 98.7; Pulse Ox 100% ; Weight 59.87 kg; Height 5 vg1 ft. 10 in. (177.80 cm); Pain 0/10; 11:14 BP 132 / 55; Pulse 82; Resp 17; Temp 98.7; Pulse Ox 98% on R/A; Pain 0/10; 6 12:00 BP 108 / 60; Pulse 81; Resp 16; Pulse Ox 99% ; 6 13:00 BP 86 / 51; Pulse 79; Resp 17; Temp 98.6; Pulse Ox 100% on R/A; Pain 0/10; 6 14:00 BP 118 / 57; Pulse 84; Resp 16; Pulse Ox 100% ; Pain 0/10; 6 15:09 BP 105 / 66; Pulse 86; Resp 17; Pulse Ox 100% ; Pain 3/10; 6 08:47 Body Mass Index 18.94 (59.87 kg, 177.80 cm) 1 Vitals: 11:14 Cardiac Rhythm Assessment Regular. [facility] ED Course: 08:23 Patient arrived in ED. am2 08:25 Nahid Farris MD is Attending Physician. kdr 08:51 Triage completed. vg1 08:51 Arm band placed on. vg1 09:26 Mary Tapia, AUDRA is Primary Nurse. 7 09:27 Basic Metabolic Panel Sent. mh5 09:27 CBC with Automated Diff Sent. mh5 09:27 Magnesium Sent. mh5 09:27 Ketone, Serum Sent. mh5 09:27 Urine Microscopic Only Sent. mh5 09:27 Basic Metabolic Panel Sent. mh5 09:27 CBC with Diff Sent. mh5 09:28 Hepatic Function Sent. mh5 09:28 Lipase Sent. mh5 09:29 Patient has correct armband on for positive identification. Bed in low position. Call [facility] light in reach. 09:29 Initial lab(s) drawn, by hi, sent to lab. Urine collected: clean catch specimen, clear. [facility] Inserted saline lock: 20 gauge in left forearm, using aseptic technique. Blood collected. 10:58 Primary Nurse role handed off by Mary Tapia RN bp 10:58 Cristopher Salinas, AUDRA is Primary Nurse. bp 11:16 Patient taken to an exam room, ambulatory, steady gait. [facility] 14:02 aMdai Gilmore MD is Hospitalizing Provider. [facility] 14:16 body technician on. Pulse ox on. follow up d stick 147. pts insulin drip stopped per [facility] protocol for 1hr. 15:55 Phosphorus Sent. jh6 15:55 Magnesium Sent. jh6 15:55 Basic Metabolic Panel Sent. 6 15:55 Acetone Level Sent. [facility] 19:09 Primary Nurse role handed off by Cristopher Salinas, RN 4 Administered Medications: 09:32 Drug: Zofran (Ondansetron) 4 mg Route: IVP; Site: left forearm; [facility] 09:32 Drug: NS 0.9% 1000 ml Route: IV; Rate: 1 bolus; Site: left forearm; [facility] 11:11 Drug: Insulin Regular Human 6 units {Co-Signature: bp (Cristopher Salinas RN).} Route: IVP; [facility] Site: left forearm; 11:12 Drug: NS 0.9% 1000 ml Route: IV; Rate: 1 bolus; Site: left forearm; [facility] 11:13 Drug: NS 0.9% 1000 ml Route: IV; Rate: 1 bolus; Site: left forearm; [facility] 12:51 Drug: Insulin Drip - (Insulin Regular Human 100 units, NS 0.9% 100 ml) {Co-Signature: [facility] bp (Cristopher Salinas RN).} Route: IV; Rate: calculated rate; Site: left forearm; 14:15 Follow up: Rate change TKO; IV Pause: 07/28/2021 14:15; IV Pause Reason: Limited IV [facility] access/Medication interaction Point of Care Testing: Blood Glucose: 08:51 Blood Glucose: 373 mg/dL; vg1 Ranges: Outcome: 14:04 Decision to Hospitalize by Provider. [facility] 07/29 10:23 Patient left the ED. [facility] Signatures: Nahid Farris MD MD [facility] Sheryl Braun [facility] Mary Tapia RN RN 7 Ibeth Live [facility] Cristopher Salinas, RN RN Ross Herrera formerly [facility] Natividad Le RN RN 1 Kimberly Jenkins RN RN [facility] Cristopher Salinas RN bp
--- NOTE | 2021-07-28 14:04 | EDPHYS ---
Physician Documentation [facility] Name: David Merritt Age: 20 yrs Sex: Male : 2000 Arrival Date: 07/28/2021 Time: 08:23 Bed 3 Private MD: ED Physician Nahid Farris HPI: 07/28 10:07 This 20 yrs old Black Male presents to ER via Ambulatory with complaints of DKA. kdr 10:07 Patient is a known diabetic who has been out some of his medications for the past kdr several weeks. He stated that he has been trying to keep his sugar under control with his short acting insulin but that has not been effective recently. Over the past 24 to 48 hours he started to feel worse and similar to his usual DKA prodrome. Onset: The symptoms/episode began/occurred gradually, 2 day(s) ago. Severity of symptoms: At their worst the symptoms were mild moderate just prior to arrival, in the emergency department the symptoms are unchanged. The patient has experienced similar episodes in the past, multiple times. The patient has not recently seen a physician. Historical: - Allergies: 08:51 NKA; vg1 - Home Meds: 08:51 Novolin R Sub-Q [Active]; vg1 - PMHx: 08:51 ADD/ADHD; Anxiety; Depression; Diabetes - IDDM; kidney disease; vg1 - PSHx: 08:51 None; vg1 - Immunization history:: Client reports having NOT received the Covid vaccine. - Social history:: Smoking status: Reported history of juuling and/or vaping. ROS: 10:07 Constitutional: Negative for fever, chills, and weight loss, Eyes: Negative for injury, kdr pain, redness, and discharge, ENT: Negative for injury, pain, and discharge, Neck: Negative for injury, pain, and swelling, Cardiovascular: Negative for chest pain, palpitations, and edema, Respiratory: Negative for shortness of breath, cough, wheezing, and pleuritic chest pain, Abdomen/GI: Negative for abdominal pain, nausea, vomiting, diarrhea, and constipation, Back: Negative for injury and pain, : Negative for injury, bleeding, discharge, and swelling, MS/Extremity: Negative for injury and deformity, Skin: Negative for injury, rash, and discoloration, Allergy/Immunology: Negative for hives, rash, and allergies, Endocrine: Negative for neck swelling, polydipsia, polyuria, polyphagia, and marked weight changes, Hematologic/Lymphatic: Negative for swollen nodes, abnormal bleeding, and unusual bruising. 10:07 Psych: Positive for anxiety, depression, Negative for auditory hallucinations, visual hallucinations, homicidal ideation, suicide gesture, suicidal ideation, acute changes. Exam: 10:07 Constitutional: This is a well developed, well nourished patient who is awake, alert, kdr and in no acute distress. Head/Face: Normocephalic, atraumatic. Eyes: Pupils equal round and reactive to light, extra-ocular motions intact. Lids and lashes normal. Conjunctiva and sclera are non-icteric and not injected. Cornea within normal limits. Periorbital areas with no swelling, redness, or edema. Neck: Trachea midline, no thyromegaly or masses palpated, and no cervical lymphadenopathy. Supple, full range of motion without nuchal rigidity, or vertebral point tenderness. No Meningismus. Chest/axilla: Normal chest wall appearance and motion. Nontender with no deformity. No lesions are appreciated. Cardiovascular: Regular rate and rhythm with a normal S1 and S2. No gallops, murmurs, or rubs. Normal PMI, no JVD. No pulse deficits. Respiratory: Lungs have equal breath sounds bilaterally, clear to auscultation and percussion. No rales, rhonchi or wheezes noted. No increased work of breathing, no retractions or nasal flaring. Abdomen/GI: Soft, non-tender, with normal bowel sounds. No distension or tympany. No guarding or rebound. No evidence of tenderness throughout. Back: No spinal tenderness. No costovertebral tenderness. Full range of motion. Skin: Warm, dry with normal turgor. Normal color with no rashes, no lesions, and no evidence of cellulitis. MS/ Extremity: Pulses equal, no cyanosis. Neurovascular intact. Full, normal range of motion. Neuro: Awake and alert, GCS 15, oriented to person, place, time, and situation. Cranial nerves II-XII grossly intact. Motor strength 5/5 in all extremities. Sensory grossly intact. Cerebellar exam normal. Normal gait. Psych: Awake, alert, with orientation to person, place and time. Behavior, mood, and affect are within normal limits. Vital Signs: 08:47 BP 117 / 71; Pulse 102; Resp 20; Temp 98.7; Pulse Ox 100% ; Weight 59.87 kg; Height 5 vg1 ft. 10 in. (177.80 cm); Pain 0/10; 11:14 BP 132 / 55; Pulse 82; Resp 17; Temp 98.7; Pulse Ox 98% on R/A; Pain 0/10; jh6 12:00 BP 108 / 60; Pulse 81; Resp 16; Pulse Ox 99% ; jh6 13:00 BP 86 / 51; Pulse 79; Resp 17; Temp 98.6; Pulse Ox 100% on R/A; Pain 0/10; jh6 14:00 BP 118 / 57; Pulse 84; Resp 16; Pulse Ox 100% ; Pain 0/10; jh6 15:09 BP 105 / 66; Pulse 86; Resp 17; Pulse Ox 100% ; Pain 3/10; jh6 08:47 Body Mass Index 18.94 (59.87 kg, 177.80 cm) vg1 MDM: 14:04 Patient medically screened. kdr 14:04 Data reviewed: vital signs, nurses notes, lab test result(s). Counseling: I had a kdr detailed discussion with the patient and/or guardian regarding: the historical points, exam findings, and any diagnostic results supporting the discharge/admit diagnosis, lab results, radiology results, the need for outpatient follow up. 07/28 08:56 Order name: Basic Metabolic Panel 07/28 08:56 Order name: CBC with Diff cp 07/28 08:56 Order name: Hepatic Function; Complete Time: 10:06 07/28 08:56 Order name: Lipase; Complete Time: 10:06 07/28 08:56 Order name: Urine Microscopic Only; Complete Time: 10:06 07/28 08:56 Order name: Ketone, Serum; Complete Time: 10:06 07/28 08:56 Order name: Magnesium; Complete Time: 10:06 07/28 08:57 Order name: Basic Metabolic Panel; Complete Time: 10:06 EDMS 07/28 08:57 Order name: CBC with Automated Diff; Complete Time: 10:06 EDMS 07/28 08:59 Order name: Glucose, Ancillary Testing; Complete Time: 10:06 EDMS 07/28 09:12 Order name: Urine Dipstick-Ancillary; Complete Time: 10:06 EDMS 07/28 09:35 Order name: Glucose, Ancillary Testing; Complete Time: 10:06 EDMS 07/28 09:39 Order name: Urine Culture EDMS 07/28 12:06 Order name: Glucose, Ancillary Testing; Complete Time: 14:02 EDMS 07/28 14:25 Order name: Glucose, Ancillary Testing EDMS 07/28 15:12 Order name: Acetone Level EDMS 07/28 15:12 Order name: Basic Metabolic Panel EDMS 07/28 15:15 Order name: Acetone Level EDMS 07/28 15:15 Order name: Acetone Level EDMS 07/28 15:15 Order name: Basic Metabolic Panel EDMS 07/28 15:15 Order name: Basic Metabolic Panel EDMS 07/28 15:15 Order name: Magnesium EDMS 07/28 15:15 Order name: Magnesium EDMS 07/28 15:15 Order name: Magnesium EDMS 07/28 15:15 Order name: Magnesium EDMS 07/28 15:15 Order name: Phosphorus EDMS 07/28 15:15 Order name: Phosphorus EDMS 07/28 15:15 Order name: Phosphorus EDMS 07/28 15:15 Order name: Phosphorus EDMS 07/28 15:19 Order name: Glucose, Ancillary Testing EDMS 07/28 08:56 Order name: IV Saline Lock; Complete Time: 09:27 cp 07/28 15:15 Order name: Clear Liquid EDMS 07/28 15:28 Order name: SARS-COV-2 RT PCR (Document "Date of Onset" if Symptomatic) jl7 07/28 16:17 Order name: Glucose, Ancillary Testing EDCT 07/28 18:08 Order name: Glucose, Ancillary Testing EDCT 07/28 19:05 Order name: SARS-COV-2 RT PCR EDCT 07/28 19:12 Order name: Glucose, Ancillary Testing EDMS 07/28 20:15 Order name: Acetone Level EDMS 07/28 21:12 Order name: Basic Metabolic Panel EDMS 07/28 21:22 Order name: Glucose, Ancillary Testing EDMS 07/28 22:17 Order name: Glucose, Ancillary Testing EDMS 07/28 23:21 Order name: Glucose, Ancillary Testing EDMS 07/29 00:36 Order name: Acetone Level EDMS 07/29 00:47 Order name: Basic Metabolic Panel EDMS 07/29 01:43 Order name: Glucose, Ancillary Testing EDMS 07/29 02:33 Order name: Glucose, Ancillary Testing EDMS 07/29 04:16 Order name: Glucose, Ancillary Testing EDMS 07/29 04:25 Order name: Acetone Level EDMS 07/29 04:51 Order name: Basic Metabolic Panel EDMS 07/29 05:16 Order name: Glucose, Ancillary Testing EDMS 07/29 06:08 Order name: Glucose, Ancillary Testing EDMS 07/29 08:12 Order name: Glucose, Ancillary Testing EDMS 07/29 08:26 Order name: Acetone Level EDMS 07/29 08:31 Order name: Basic Metabolic Panel EDMS 07/29 08:59 Order name: Glucose, Ancillary Testing EDMS 07/29 10:02 Order name: Glucose, Ancillary Testing EDMS 07/28 08:56 Order name: Labs collected and sent; Complete Time: 09:33 cp 07/28 08:56 Order name: Urine Dipstick-Ancillary (obtain specimen); Complete Time: 09:27 cp Administered Medications: 09:32 Drug: Zofran (Ondansetron) 4 mg Route: IVP; Site: left forearm; [facility] 09:32 Drug: NS 0.9% 1000 ml Route: IV; Rate: 1 bolus; Site: left forearm; [facility] 11:11 Drug: Insulin Regular Human 6 units {Co-Signature: (Cristopher Salinas RN).} Route: IVP; [facility] Site: left forearm; 11:12 Drug: NS 0.9% 1000 ml Route: IV; Rate: 1 bolus; Site: left forearm; [facility] 11:13 Drug: NS 0.9% 1000 ml Route: IV; Rate: 1 bolus; Site: left forearm; [facility] 12:51 Drug: Insulin Drip - (Insulin Regular Human 100 units, NS 0.9% 100 ml) {Co-Signature: [facility] (Cristopher Salinas RN).} Route: IV; Rate: calculated rate; Site: left forearm; 14:15 Follow up: Rate change TKO; IV Pause: 07/28/2021 14:15; IV Pause Reason: Limited IV [facility] access/Medication interaction Point of Care Testing: Blood Glucose: 08:51 Blood Glucose: 373 mg/dL; vg1 Ranges: Critical Glucose Levels:Adult <50 mg/dl or >400 mg/dl <40 mg/dl or >180 mg/dl Disposition Summary: 07/28/21 14:04 Hospitalization Ordered Hospitalization Status: Inpatient Admission kdr Provider: Madai Gilmore Condition: Fair kdr Problem: new kdr Symptoms: have improved kdr Bed/Room Type: Standard kdr Location: [facility] ER HOLD(07/28/21 20:10) cg Room Assignment: ERHOLD-(07/28/21 20:10) cg Diagnosis - Diabetic ketoacidosis kdr Forms: - Medication Reconciliation Form kdr - SBAR form kdr Signatures: Dispatcher [employer] EDMS Nahid Farris MD MD kdr Alfonso De La Cruz PA PA cp Garcia, Cindy, RN RN cg Mary Tapia RN RN jl7 Natividad Le RN RN vg1 Kimberly Jenkins RN RN jh6 Cristopher Salinas RN bp Corrections: (The following items were deleted from the chart) 20:10 14:04 Intensive Care Unit kdr cg 20:10 14:04 kdr cg
[2021-07-28] MEDS ORDERED: ONDANSETRON 4 MG/2 ML VIAL IV PRN (15:12)
[2021-07-28] MEDS ORDERED: ENOXAPARIN 40 MG/0.4 ML SQ SCH (16:00)
[2021-07-28] MEDS: D5 0.45 NS 1,000 ML IV SCH (16:00)
[2021-07-28 16:35] LABS: BUN Blood Urea Nitrogen 12 mg/dL (7-18); Glucose Level 182 mg/dL (74-106); Potassium 4.4 mmol/L (3.5-5.1); Sodium Level 138 mmol/L (136-145)
[2021-07-28 16:42] LABS: Bicarbonate 9 mmol/L (21-32)
[2021-07-28] MEDS ORDERED: D5 0.45 NS 1,000 ML IV ONE ×2 (17:09→23:45)
[2021-07-28 17:51] VITALS: BMI 24.3
--- NOTE | 2021-07-28 18:33 | P.HP ---
Certification for Inpatient Patient admitted to: Observation With expected LOS: <2 Midnights Patient will require the following post-hospital care: None Practitioner: I am a practitioner with admitting privileges, knowledge of patient current condition, hospital course, and medical plan of care. Services: Services provided to patient in accordance with Admission requirements found in Title 42 Section 412.3 of the Code of Federal Regulations Patient History Date of Service: 07/28/21 Reason for admission: Diabetic ketoacidosis History of Present Illness: Patient is a 20-year-old gentlemen who has not been taking his long-acting insulin. Patient came into the hospital tachypneic and lightheaded. Patient's blood sugars were elevated. Patient was found to be acidotic in the emergency room. Patient was diagnose with diabetic ketoacidosis. Patient be admitted for further evaluation. Patient been started on IV fluids and an insulin drip as well. Allergies No Known Drug Allergies Allergy (Verified 01/02/19 04:53) Unknown Home Medications: Insulin Regular, Human [Novolin R Flexpen] 100 unit SQ SEECOM #1 insuln.pen 11/26/19 Insulin Degludec [Tresiba Flextouch U-100] 40 unit SQ DAILY #1 packet 07/20/20 Venlafaxine HCl *Xr* [Effexor XR*] 37.5 mg PO DAILY #30 cap 07/20/20 Ascorbate Calcium [Vitamin C] 500 mg PO TID #90 tablet 09/03/20 Cholecalciferol (Vitamin D3) [Vitamin D 1000 Iu Tab] 2,000 unit PO DAILY #60 tab 09/03/20 Fluticasone [Flonase 50MCG Nasal [place]*] 1 sprays KENNEY BID #1 btl 09/03/20 Melatonin 5 mg PO BEDTIME #30 tablet 09/03/20 Thiamine HCl 100 mg PO BID #60 tablet 09/03/20 Zinc Sulfate [Zinc Sulfate*] 220 mg PO DAILY #30 cap 09/03/20 - Past Medical/Surgical History Diabetic: Yes -: Diabetes type 1 insulin-dependent -: Depression with anxiety -: THC use -: ADD/ADHD -: kidney disease Past Surgical History: Patient denies surgical history Psychosocial/ Personal History: Patient lives with his mother but at times with his brother. He is single. Has no children. 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 - Family History Father Family History: Reviewed- Non-Contributory - Social History Smoking Status: Never smoker Alcohol use: No CD- Drugs: No Caffeine use: No Review of Systems 10-point ROS is otherwise unremarkable Physical Examination - Vital Signs Temperature: 98 F Blood Pressure: 140/80 Pulse: 88 Respirations: 18 Pulse Ox (%): 95 - Physical Exam General: Alert, In no apparent distress, Oriented x3 HEENT: Atraumatic, PERRLA, Mucous membr. moist/pink, EOMI, Sclerae nonicteric Neck: Supple, 2+ carotid pulse no bruit, No LAD, Without JVD or thyroid abnormality Respiratory: Clear to auscultation bilaterally, Normal air movement Cardiovascular: Regular rate/rhythm, Normal S1 S2, No murmurs Gastrointestinal: Normal bowel sounds, Soft and benign, Non-distended, No tenderness Musculoskeletal: No clubbing, No swelling, No tenderness Integumentary: No rashes Neurological: Normal gait, Normal speech, Normal strength at 5/5 x4 extr, Normal tone, Sensation intact, Cranial nerves 3-12 intact, Normal affect Lymphatics: No axilla or inguinal lymphadenopathy - Studies Laboratory Data (last 24 hrs) 07/28/21 09:25: WBC 8.50, Hgb 15.9, Hct 49.6 H, Plt Count 297 07/28/21 09:25: Sodium 135 L, Potassium 4.4, BUN 18, Creatinine 1.19, Glucose 369 H, Magnesium 2.2, Total Bilirubin 0.5, AST 18, ALT 24, Alkaline Phosphatase 111, Lipase 57 L Assessment & Plan - Problems (Diagnosis) (1) Depression with anxiety Onset Date: 06/08/18 Current Visit: No Status: Acute (2) Diabetic ketoacidosis Current Visit: No Status: Acute Qualifiers: (3) Nausea & vomiting Onset Date: 06/08/18 Current Visit: No Status: Acute - Plan 1. IV hydration 2. Insulin drip 3. Accu-Cheks q1h 4. Measure anion gap every 2 hrs 5. Resume diet once anion gap is closed and will resume insulin pump 6. Diabetic education 7. Long-acting insulin once patient able to tolerate diet and at that time will discontinue insulin drip Discharge Plan: Home Plan to discharge in: Greater than 2 days - Advance Directives Does patient have a Living Will: No Does patient have a Durable POA for Healthcare: No - Code Status/Comfort Care Code Status Assessed: Yes Code Status: Full Code Critical Care: No Time Spent Managing PTS Care (In Minutes): 45
[2021-07-28] MEDS ORDERED: ONDANSETRON 4 MG/2 ML VIAL IV SCH (20:00)
[2021-07-28 21:11] LABS: Glucose Level 199 mg/dL (74-106); Potassium 3.8 mmol/L (3.5-5.1); Sodium Level 134 mmol/L (136-145)
[2021-07-28 21:24] LABS: Bicarbonate 13 mmol/L (21-32)
[2021-07-28 22:30] LABS: BUN Blood Urea Nitrogen 10 mg/dL (7-18)
[2021-07-29] MEDS ORDERED: ONDANSETRON 4 MG/2 ML VIAL ONE (00:11)
[2021-07-29 00:46] LABS: BUN Blood Urea Nitrogen 8 mg/dL (7-18); Bicarbonate 13 mmol/L (21-32); Glucose Level 194 mg/dL (74-106); Potassium 3.8 mmol/L (3.5-5.1); Sodium Level 134 mmol/L (136-145)
[2021-07-29 04:48] LABS: BUN Blood Urea Nitrogen 7 mg/dL (7-18); Potassium 3.3 mmol/L (3.5-5.1); Sodium Level 131 mmol/L (136-145)
[2021-07-29 04:51] LABS: Bicarbonate 14 mmol/L (21-32); Glucose Level 468 mg/dL (74-106)
[2021-07-29 05:16] LABS: Magnesium 1.5 mg/dL (1.8-2.4); Phosphorus 2.1 mg/dL (2.5-4.9)
[2021-07-29] MEDS: D5 0.45 NS 1,000 ML IV SCH (05:20)
[2021-07-29] MEDS ORDERED: D5 0.45 NS 1,000 ML IV ONE (07:57)
[2021-07-29 08:30] VITALS: BP 110/48; TEMP 98
[2021-07-29 08:31] LABS: BUN Blood Urea Nitrogen 9 mg/dL (7-18); Bicarbonate 20 mmol/L (21-32); Glucose Level 167 mg/dL (74-106); Potassium 3.6 mmol/L (3.5-5.1); Sodium Level 135 mmol/L (136-145)
[2021-07-29] MEDS ORDERED: INFLUENZA VACCINE (for 6+ mo) 0.5 ML DOSE IMVAC ONE (09:00)
[2021-07-29] MEDS ORDERED: INSULIN GLARGINE 100 UNIT/ML SQ ONE (10:00)
--- NOTE | 2021-07-29 10:23 | P.DS ---
Discharge Date: 07/29/21 Disposition: ROUTINE DISCHARGE Discharge Condition: GOOD Reason for Admission: Diabetic ketoacidosis - Problems (1) Depression with anxiety Onset Date: 06/08/18 Current Visit: No Status: Acute (2) Diabetic ketoacidosis Current Visit: No Status: Acute Qualifiers: (3) Nausea & vomiting Onset Date: 06/08/18 Current Visit: No Status: Acute Brief History of Present Illness: Patient is a 20-year-old gentlemen who has not been taking his long-acting insulin. Patient came into the hospital tachypneic and lightheaded. Patient's blood sugars were elevated. Patient was found to be acidotic in the emergency room. Patient was diagnose with diabetic ketoacidosis. Patient be admitted for further evaluation. Patient been started on IV fluids and an insulin drip as well. Hospital Course: Patient did well during hospital stay. Blood sugars are corrected. At this time, patient is stable for discharge home. Vital Signs/Physical Exam: Temp Pulse Resp BP Pulse Ox 98.0 F 68 16 110/48 L 100 07/29/21 08:00 07/29/21 08:00 07/29/21 08:00 07/29/21 08:00 07/29/21 08:00 General: Alert, In no apparent distress, Oriented x3 Laboratory Data at Discharge: WBC 8.50 K/uL (4.3-10.9) 07/28/21 09:25 Hgb 15.9 g/dL (13.6-17.9) 07/28/21 09:25 Hct 49.6 % (39.6-49.0) H 07/28/21 09:25 Plt Count 297 K/uL (152-406) 07/28/21 09:25 Sodium 135 mmol/L (136-145) L 07/29/21 08:00 Potassium 3.6 mmol/L (3.5-5.1) 07/29/21 08:00 BUN 9 mg/dL (7-18) 07/29/21 08:00 Creatinine 1.04 mg/dL (0.55-1.3) 07/29/21 08:00 Glucose 167 mg/dL (74-106) H 07/29/21 08:00 Phosphorus 2.1 mg/dL (2.5-4.9) L 07/29/21 04:03 Magnesium 1.5 mg/dL (1.8-2.4) L D 07/29/21 04:03 Total Bilirubin 0.5 mg/dL (0.2-1.0) 07/28/21 09:25 AST 18 U/L (15-37) 07/28/21 09:25 ALT 24 U/L (12-78) 07/28/21 09:25 Alkaline Phosphatase 111 U/L (45-117) 07/28/21 09:25 Lipase 57 U/L (73-393) L 07/28/21 09:25 Home Medications: Insulin Regular, Human [Novolin R Flexpen] 100 unit SQ SEECOM #1 insuln.pen 11/26/19 Insulin Degludec [Tresiba Flextouch U-100] 40 unit SQ DAILY #1 packet 07/20/20 Venlafaxine HCl *Xr* [Effexor XR*] 37.5 mg PO DAILY #30 cap 07/20/20 Ascorbate Calcium [Vitamin C] 500 mg PO TID #90 tablet 09/03/20 Cholecalciferol (Vitamin D3) [Vitamin D 1000 Iu Tab*] 2,000 unit PO DAILY #60 tab 09/03/20 Fluticasone [Flonase 50MCG Nasal [place]*] 1 sprays KENNEY BID #1 btl 09/03/20 Melatonin 5 mg PO BEDTIME #30 tablet 09/03/20 Thiamine HCl 100 mg PO BID #60 tablet 09/03/20 Zinc Sulfate [Zinc Sulfate*] 220 mg PO DAILY #30 cap 09/03/20 Physician Discharge Instructions: OK TO DC IV AND DC HOME FOLLOW-UP WITH PRIMARY CARE PROVIDER IN 1-2 WEEKS RETURN TO THE ER IF symptoms worsens CALL or TEXT DR. BAH AT [phone] IF ANY QUESTIONS REGARDING HOSPITAL STAY. PLEASE CALL THE FLOOR AT [phone] IF ANY MEDICATION OR NURSING QUESTIONS. Diet: ADA Activity: Fall precautions Followup: NONE,NONE [Primary Care Provider] - Time spent managing pt's care (in minutes): 35
[2021-07-29 10:49] VITALS: O2SAT 100
== END 2021-07-29 10:46 | disposition home or self-care (01) ==
LOC: ER 08:23 → ERHOLD 15:12
PROVIDERS: ADMIT Hospitalist; ATTEND Hospitalist
DX: E10.10 Type 1 diabetes mellitus with ketoacidosis without coma (principal); Z91.14 Patient's other noncompliance with medication regimen; R11.2 Nausea with vomiting, unspecified; F41.8 Other specified anxiety disorders; F90.9 Attention-deficit hyperactivity disorder, unspecified type; F12.90 Cannabis use, unspecified, uncomplicated; Z79.4 Long term (current) use of insulin; Z20.822 Contact with and (suspected) exposure to COVID-19
CPT/HCPCS: 36415; 80048; 80076; 81003; 81015; 82010; 82947; 83690; 83735; 84100; 85025; 87086; 87088; 96365; 96375; 99285; G0378; J2405; J7030; J7799; U0003